=== PATIENT | male | born 1940 | race Two or more races ===

== ENCOUNTER 2018-08-25 13:57 | Emergency (ER) | payer OTHER ==
[~2018-08-25] VITALS: Ht 170.2 cm; Wt 64.4 kg
[2018-08-25 14:20] VITALS: BP 130/87
[2018-08-25 15:04] LABS: Basophils # (auto) 0 uL; Basophils % (auto) 0.5 % (0.0-2.0); Eosinophils # (auto) 0.1 uL; Eosinophils % (auto) 2.4 % (0.0-7.0); Hematocrit 38.9 % (41.0-53.0); Hemoglobin 12.9 g/dL (13.5-17.5); Lymphocytes # (auto) 0.9 uL; Lymphocytes % (auto) 14.1 % (10.0-50.0); Mean Corpuscular Hemoglobin 29.8 pg (28.0-32.0); Mean Corpuscular Hgb Conc. 33.1 g/dL (32.0-36.0); Mean Corpuscular Volume 89.9 fL (80.0-100.0); Monocytes # (auto) 0.6 uL; Monocytes % (auto) 10.1 % (0.0-12.0); Neutrophils # (auto) 4.6 uL; Neutrophils % (auto) 72.9 % (37.0-80.0); Platelet Count (auto) 295 10^3/uL (140-450); Red Blood Cells 4.33 10^6/uL (4.5-5.90); Red Cell Distribution Width 15.1 % (11.8-14.3); White Blood Cell 6.3 10^3/uL (4.4-10.8)
[2018-08-25 15:26] LABS: Albumin 3.6 g/dL (3.4-5.0); Anion Gap 3 (5-15); Blood Urea Nitrogen 17 mg/dL (7-18); Calcium 8.7 mg/dL (8.5-10.1); Carbon Dioxide 28 mmol/L (21-32); Chloride 105 mmol/L (98-107); Glucose 164 mg/dL (74-106); Magnesium 2.3 mg/dL (1.6-2.6); Potassium 3.6 mmol/L (3.5-5.1); Sodium 136 mmol/L (136-145)
[2018-08-25 15:32] LABS: Alanine Aminotransferase 69 U/L (16-61); Alkaline Phosphatase 202 U/L (45-117); Aspartate Aminotransferase 49 U/L (15-37); BUN/Creatinine Ratio 14.5; Bilirubin, Total 0.7 mg/dL (0.2-1.0); GFR African American 78 mL/min; GFR Non-African American 64 mL/min; Total Protein 7.3 g/dL (6.4-8.2)
== END 2018-08-25 19:50 | disposition left against medical advice (07) ==
LOC: ER 14:04
DX: I11.0 Hypertensive heart disease with heart failure (principal); I50.9 Heart failure, unspecified; R42 Dizziness and giddiness; R79.89 Other specified abnormal findings of blood chemistry; J44.9 Chronic obstructive pulmonary disease, unspecified; I25.10 Atherosclerotic heart disease of native coronary artery without angina pectoris; E78.5 Hyperlipidemia, unspecified; Z87.891 Personal history of nicotine dependence
CPT/HCPCS: 36415; 70450; 71046; 80053; 83735; 83880; 84484; 85025; 93005

== ENCOUNTER 2019-09-10 09:55 | Emergency (ER) | payer OTHER ==
[~2019-09-10] VITALS: Ht 160 cm; Wt 54.4 kg
[2019-09-10 10:08] VITALS: BP 120/60
[2019-09-10 10:44] LABS: Basophils # (auto) 0 uL; Basophils % (auto) 0.5 % (0.0-2.0); Eosinophils # (auto) 0.5 uL; Eosinophils % (auto) 8.2 % (0.0-7.0); Hematocrit 40.9 % (41.0-53.0); Hemoglobin 14.1 g/dL (13.5-17.5); Lymphocytes # (auto) 0.9 uL; Lymphocytes % (auto) 13.6 % (10.0-50.0); Mean Corpuscular Hemoglobin 32.4 pg (28.0-32.0); Mean Corpuscular Hgb Conc. 34.5 g/dL (32.0-36.0); Mean Corpuscular Volume 94.1 fL (80.0-100.0); Monocytes # (auto) 0.5 uL; Monocytes % (auto) 8.3 % (0.0-12.0); Neutrophils # (auto) 4.4 uL; Neutrophils % (auto) 69.4 % (37.0-80.0); Platelet Count (auto) 252 10^3/uL (140-450); Red Blood Cells 4.34 10^6/uL (4.5-5.90); Red Cell Distribution Width 14.5 % (11.8-14.3); White Blood Cell 6.3 10^3/uL (4.4-10.8)
[2019-09-10 10:59] LABS: Albumin 3.8 g/dL (3.4-5.0); Anion Gap 7 (5-15); Blood Urea Nitrogen 32 mg/dL (7-18); Calcium 9.1 mg/dL (8.5-10.1); Carbon Dioxide 25 mmol/L (21-32); Chloride 107 mmol/L (98-107); Glucose 87 mg/dL (74-106); Potassium 4.1 mmol/L (3.5-5.1); Sodium 139 mmol/L (136-145)
[2019-09-10 11:04] LABS: Alanine Aminotransferase 22 U/L (16-61); Alkaline Phosphatase 112 U/L (45-117); Aspartate Aminotransferase 28 U/L (15-37); BUN/Creatinine Ratio 26.7; Bilirubin, Total 0.7 mg/dL (0.2-1.0); GFR African American 75 mL/min; GFR Non-African American 62 mL/min; Total Protein 7.4 g/dL (6.4-8.2)
== END 2019-09-10 14:28 | disposition left against medical advice (07) ==
LOC: EDBD 09:55 → ER 09:55
DX: K29.70 Gastritis, unspecified, without bleeding (principal); F12.90 Cannabis use, unspecified, uncomplicated; I25.10 Atherosclerotic heart disease of native coronary artery without angina pectoris; J44.9 Chronic obstructive pulmonary disease, unspecified; E78.5 Hyperlipidemia, unspecified; I10 Essential (primary) hypertension; F17.210 Nicotine dependence, cigarettes, uncomplicated
CPT/HCPCS: 36415; 71046; 80053; 84484; 85025

== ENCOUNTER 2020-05-16 10:43 | Inpatient (IN) | payer OTHER ==
[~2020-05-16] VITALS: Ht 165.1 cm; Wt 59.0 kg
[2020-05-16] MEDS ORDERED: ONDANSETRON HCL 4 MG/2 ML VIAL IV ONE (11:00)
[2020-05-16] MEDS ORDERED: MORPHINE SULFATE 4 MG/ML SYR/VIAL IV ONE (11:00)
[2020-05-16 11:21] LABS: Basophils # (auto) 0.1 10 ^3/uL (0-0.2); Basophils % (auto) 1.3 % (0.0-2.0); Eosinophils # (auto) 0.3 10 ^3/uL (0-0.8); Eosinophils % (auto) 6.3 % (0.0-7.0); Hematocrit 45.6 % (41.0-53.0); Hemoglobin 15.3 g/dL (13.5-17.5); Lymphocytes # (auto) 1.1 10 ^3/uL (0.4-5.4); Lymphocytes % (auto) 26.6 % (10.0-50.0); Mean Corpuscular Hemoglobin 31.9 pg (28.0-32.0); Mean Corpuscular Hgb Conc. 33.6 g/dL (32.0-36.0); Monocytes # (auto) 0.4 10 ^3/uL (0-1.3); Monocytes % (auto) 9.2 % (0.0-12.0); Neutrophils # (auto) 2.3 10 ^3/uL (1.6-8.6); Neutrophils % (auto) 56.6 % (37.0-80.0); Nucleated Red Blood Cells % 0.1 %; Platelet Count (auto) 253 10^3/uL (140-450); White Blood Cell 4.1 10^3/uL (4.4-10.8)
[2020-05-16 11:37] LABS: Albumin 3.5 g/dL (3.4-5.0); Anion Gap 2 (5-15); Blood Urea Nitrogen 13 mg/dL (7-18); Calcium 8.8 mg/dL (8.5-10.1); Carbon Dioxide 28 mmol/L (21-32); Chloride 110 mmol/L (98-107); Glucose 153 mg/dL (74-106); Magnesium 2.4 mg/dL (1.6-2.6); Potassium 3.8 mmol/L (3.5-5.1); Sodium 140 mmol/L (136-145)
[2020-05-16 11:53] LABS: Alanine Aminotransferase 18 U/L (16-61); Alkaline Phosphatase 85 U/L (45-117); Aspartate Aminotransferase 21 U/L (15-37); BUN/Creatinine Ratio 11.8; Bilirubin, Total 0.8 mg/dL (0.2-1.0); GFR African American 83 mL/min; GFR Non-African American 69 mL/min; Total Protein 7.2 g/dL (6.4-8.2)
[2020-05-16] MEDS ORDERED: NITROGLYCERIN 0.4 MG SL TAB SL PRN ×2 (15:00→16:30)
[2020-05-16] MEDS ORDERED: CYCL10TA6 PO (16:12)
[2020-05-16] MEDS ORDERED: HYDR-4833 PO (16:12)
[2020-05-16] MEDS ORDERED: LORA2TAB12 PO (16:12)
[2020-05-16] MEDS ORDERED: MULT0.07 PO (16:12)
[2020-05-16] MEDS ORDERED: CARV12.544 PO (16:12)
[2020-05-16] MEDS ORDERED: ALBUAER3 IN (16:12)
[2020-05-16] MEDS ORDERED: PANC3600 PO (16:12)
[2020-05-16] MEDS ORDERED: SIMV10TA84 PO (16:12)
[2020-05-16] MEDS ORDERED: TAMS0.4C36 PO (16:12)
[2020-05-16] MEDS ORDERED: ISOS5TAB PO (16:12)
[2020-05-16] MEDS ORDERED: DICY20TA PO (16:12)
[2020-05-16] MEDS ORDERED: NITR0.4S29 SL (16:12)
[2020-05-16] MEDS ORDERED: ASPI-498 PO (16:12)
[2020-05-16] MEDS ORDERED: MELO1TAB73 PO (16:12)
[2020-05-16] MEDS ORDERED: MULT-928 PO (16:13)
[2020-05-16] MEDS ORDERED: MORPHINE SULFATE 4 MG/ML SYR/VIAL IV PRN (16:30)
[2020-05-16] MEDS ORDERED: ONDANSETRON HCL 4 MG/2 ML VIAL IV PRN (16:30)
[2020-05-16] MEDS ORDERED: ATORVASTATIN 20 MG TAB PO ONE (16:30)
[2020-05-16] MEDS ORDERED: ALUM & MAG HYDROX-SIMETH LIQ(MAALOX) 30 ML PO ONE (16:30)
[2020-05-16] MEDS ORDERED: MULTIPLE VITAMINS W/ MINERALS TAB PO ONE (16:45)
[2020-05-16] MEDS ORDERED: DICYCLOMINE HCL 10 MG CAP PO PRN (16:45)
[2020-05-16] MEDS: SODIUM CHLORIDE 0.9% 1,000 ML IV SCH (17:00)
[2020-05-16] MEDS: ENOXAPARIN SOD 40 MG/0.4 ML SYRINGE SC SCH (17:41)
[2020-05-16] MEDS: PANCREATIC ENZYMES 4200 UNIT CAP PO SCH (18:42)
[2020-05-16] MEDS: TAMSULOSIN HYDROCHLORIDE 0.4 MG CAP PO SCH (18:42)
[2020-05-16] MEDS: ALBUTEROL SULF 2.5 MG/0.5ML(0.5%) NEB SOLN NEB PRN (19:34)
[2020-05-16] MEDS: IPRATROPIUM BROM 0.5 MG/2.5ML INH SOL NEB SCH ×2 (19:35→22:00)
[2020-05-16] MEDS: ATORVASTATIN 20 MG TAB PO SCH (20:26)
[2020-05-16] MEDS: ISOSORBIDE DINITRATE 10 MG TAB PO SCH (20:26)
[2020-05-16] MEDS: METOPROLOL TARTRATE 25 MG TAB PO SCH (20:27)
[2020-05-16] MEDS: LORazepam 0.5 MG TAB PO PRN (20:27)
--- NOTE | 2020-05-16 22:23 | NUR ---
MED NEB TX HELD, PT REQUESTED IF SLEEPING TO HOLD MED NEB TX. PT ON ROOM AIR SPO2 93% WITH NO DISTRESS.
[2020-05-16] MEDS: MORPHINE SULF INJ 2 MG/ML SYRINGE 1ML IV PRN (23:16)
[2020-05-17] VITALS (7 sets, daily range): BP systolic 93–141; BP diastolic 57–88
[2020-05-17] MEDS: IPRATROPIUM BROM 0.5 MG/2.5ML INH SOL NEB SCH ×6 (01:27→22:42)
[2020-05-17] MEDS: ACETAMINOPHEN 325 MG TAB PO PRN ×3 (05:22→23:20)
[2020-05-17] MEDS: SODIUM CHLORIDE 0.9% 1,000 ML IV SCH ×2 (05:24→19:10)
[2020-05-17] MEDS: ALBUTEROL SULF 2.5 MG/0.5ML(0.5%) NEB SOLN NEB PRN ×3 (06:57→19:01)
--- NOTE | 2020-05-17 07:20 | NUR ---
Opening Shift Note Assumed care of patient, awake and alert. No S/S of distress/SOB or pain. Instructed on POC and to call for assist PRN, will continue to monitor for changes Q1hr and PRN.
--- NOTE | 2020-05-17 10:00 | NUR ---
Respiratory note: PT REFUSED 1000 MEDNEB TX. PT SAID IF HE IS ASLEEP TO NOT WAKE HIM UP. PT IS RESTING AND IN NO DISTRESS AT THIS TIME.
[2020-05-17] MEDS: PANCREATIC ENZYMES 4200 UNIT CAP PO SCH ×3 (10:20→22:29)
[2020-05-17] MEDS: ENOXAPARIN SOD 40 MG/0.4 ML SYRINGE SC SCH (10:20)
[2020-05-17] MEDS: ASPirin 81 mg TAB PO SCH (10:21)
[2020-05-17] MEDS: DOCUSATE SOD 100 MG CAP PO SCH (10:21)
[2020-05-17] MEDS: ISOSORBIDE DINITRATE 10 MG TAB PO SCH ×2 (10:22→22:23)
[2020-05-17] MEDS: METOPROLOL TARTRATE 25 MG TAB PO SCH ×2 (10:23→22:00)
[2020-05-17] MEDS: MULTIPLE VITAMINS W/ MINERALS TAB PO SCH (10:24)
[2020-05-17] MEDS: TAMSULOSIN HYDROCHLORIDE 0.4 MG CAP PO SCH (18:39)
[2020-05-17] MEDS: MORPHINE SULF INJ 2 MG/ML SYRINGE 1ML IV PRN (21:00)
[2020-05-17] MEDS: ATORVASTATIN 20 MG TAB PO SCH (22:23)
[2020-05-17] MEDS: LORazepam 0.5 MG TAB PO PRN (22:31)
--- NOTE | 2020-05-17 22:42 | NUR ---
PT REQUESTED NOT TO BE WOKEN UP FOR HIS 2200 MED NEB TX. HE IS AWARE TO CALL IF HE CHANGES HIS MIND OR FEELS SOB.
--- NOTE | 2020-05-18 00:40 | NUR ---
PATIENT COMPLAINING OF INTRACTABLE HEADACHE FOR THE LAST 3 HOURS. ATIVAN AND TYLENOL GIVEN WITHOUT RELIEF. PAGED HOSPITALIST AND AWAITING CALLBACK.
[2020-05-18] MEDS ORDERED: SUMAtriptan SUCCINATE 25 MG TAB PO ONE (01:30)
[2020-05-18] MEDS: IPRATROPIUM BROM 0.5 MG/2.5ML INH SOL NEB SCH ×7 (02:30→22:00)
--- NOTE | 2020-05-18 02:31 | NUR ---
PT REQUESTED NOT TO BE WOKEN UP FOR HIS 0200 MED NEB TX. HE IS AWARE TO CALL IF HE CHANGES HIS MIND OR FEELS SOB.
--- NOTE | 2020-05-18 04:20 | NUR ---
20G to the Left AC dc'd due to leaking. Catheter tip still intact upon removal.
--- NOTE | 2020-05-18 04:23 | NUR ---
IV insertion IV access obtained, via clean sterile technique by inserting 20 gauge catheter at right wrist after 1 attempt. IV secured properly. No trauma to site. Patient tolerated procedure well.
[2020-05-18 05:06] VITALS: BP 144/94
--- NOTE | 2020-05-18 06:40 | NUR ---
PT REFUSED MED NEB AT THIS TIME. PT SAID HE WANTS TO SLEEP. PT ON RA WITH SPO2 96% WITH CLEAR BS, RR 16 NO DISTRESS NOTED. WILL CONTINUE TO MONITOR PT.
[2020-05-18] MEDS: PANCREATIC ENZYMES 4200 UNIT CAP PO SCH ×3 (07:43→17:17)
[2020-05-18] MEDS: LORazepam 0.5 MG TAB PO PRN ×3 (07:43→22:13)
[2020-05-18 09:00] VITALS: BP 114/80
[2020-05-18] MEDS: METOPROLOL TARTRATE 25 MG TAB PO SCH ×2 (09:41→22:00)
[2020-05-18] MEDS: MULTIPLE VITAMINS W/ MINERALS TAB PO SCH (09:41)
[2020-05-18] MEDS: ASPirin 81 mg TAB PO SCH (09:41)
[2020-05-18] MEDS: ISOSORBIDE DINITRATE 10 MG TAB PO SCH ×2 (09:42→22:12)
[2020-05-18] MEDS: ENOXAPARIN SOD 40 MG/0.4 ML SYRINGE SC SCH (09:42)
[2020-05-18] MEDS: SODIUM CHLORIDE 0.9% 1,000 ML IV SCH ×2 (09:42→21:37)
[2020-05-18] MEDS: DOCUSATE SOD 100 MG CAP PO SCH (09:42)
--- NOTE | 2020-05-18 10:14 | NUR ---
Dr. Marina at bedside, patient c/o of headache, received new orders, noted and carried it out.
[2020-05-18] MEDS ORDERED: SUMAtriptan SUCCINATE 25 MG TAB PO PRN (10:15)
[2020-05-18] MEDS: SUMAtriptan SUCCINATE 25 MG TAB PO PRN (11:11)
[2020-05-18 12:51] VITALS: BP 141/67
[2020-05-18 16:50] VITALS: BP 136/70
[2020-05-18] MEDS: TAMSULOSIN HYDROCHLORIDE 0.4 MG CAP PO SCH (17:17)
[2020-05-18 22:00] VITALS: BP 149/82
[2020-05-18] MEDS: ATORVASTATIN 20 MG TAB PO SCH (22:13)
[2020-05-19] MEDS: SUMAtriptan SUCCINATE 25 MG TAB PO PRN ×2 (01:11→13:15)
[2020-05-19] MEDS: IPRATROPIUM BROM 0.5 MG/2.5ML INH SOL NEB SCH ×3 (02:00→10:13)
--- NOTE | 2020-05-19 05:41 | NUR ---
PT REFUSED 5AM VITALS
--- NOTE | 2020-05-19 06:06 | NUR ---
Respiratory note: SCHEDULED MEDNEB TX NOT GIVEN, PT REFUSING AT THIS TIME AND WANTS TO SLEEP. SPO2 95% ON ROOM AIR. NO S/S OF DISTRESS. WILL RETURN FOR NEXT SCHEDULED TX.
[2020-05-19 08:42] VITALS: BP 132/76
[2020-05-19] MEDS: DOCUSATE SOD 100 MG CAP PO SCH (08:56)
[2020-05-19] MEDS: PANCREATIC ENZYMES 4200 UNIT CAP PO SCH ×2 (08:56→11:14)
[2020-05-19] MEDS: ASPirin 81 mg TAB PO SCH (08:56)
[2020-05-19] MEDS: MULTIPLE VITAMINS W/ MINERALS TAB PO SCH (08:56)
[2020-05-19] MEDS: ENOXAPARIN SOD 40 MG/0.4 ML SYRINGE SC SCH (08:57)
[2020-05-19] MEDS: ISOSORBIDE DINITRATE 10 MG TAB PO SCH (08:57)
[2020-05-19] MEDS: LORazepam 0.5 MG TAB PO PRN (08:57)
[2020-05-19] MEDS: METOPROLOL TARTRATE 25 MG TAB PO SCH (08:57)
[2020-05-19] MEDS: SODIUM CHLORIDE 0.9% 1,000 ML IV SCH (11:14)
[2020-05-19 11:55] VITALS: BP 123/87
[2020-05-19 13:02] VITALS: BP 142/83
--- NOTE | 2020-05-19 13:50 | NUR ---
Discharge instructions given as ordered. Encourage to follow up with PMD (Follow up with PCP Terrie Khan #[phone] Address : [address] [place] [address], Follow up with [employer] in 1-[address] Ortiz #[phone] Address : [address] Need referral from PCP to see human performance professor)as instructed. All questions and concerns addressed. Patient verbalized understanding. Medication reconciliation form completed and copy given to patient. IV removed with catheter intact, pressure dressing applied. Telemetry unit returned to ICU. Patient taken to vehicle via wheelchair with all personal belongings, accompanied by staff and family member. No distress noted at time of departure.
== END 2020-05-19 14:15 | disposition home or self-care (01) | DRG 308 ==
LOC: ER 10:43 → TELE 10:44 → TELE-WESTW 05-17 02:27
PROVIDERS: ADMIT Hospitalist; ATTEND Family Medicine
DX: I49.5 Sick sinus syndrome (principal); I50.23 Acute on chronic systolic (congestive) heart failure; K86.1 Other chronic pancreatitis; I11.0 Hypertensive heart disease with heart failure; E78.5 Hyperlipidemia, unspecified; K21.9 Gastro-esophageal reflux disease without esophagitis; J44.9 Chronic obstructive pulmonary disease, unspecified; N40.0 Benign prostatic hyperplasia without lower urinary tract symptoms; I25.10 Atherosclerotic heart disease of native coronary artery without angina pectoris; E78.00 Pure hypercholesterolemia, unspecified; I25.5 Ischemic cardiomyopathy; M19.90 Unspecified osteoarthritis, unspecified site; I25.2 Old myocardial infarction; Z95.1 Presence of aortocoronary bypass graft; Z87.891 Personal history of nicotine dependence; Z95.0 Presence of cardiac pacemaker; Z71.6 Tobacco abuse counseling
CPT/HCPCS: 36415; 71046; 80053; 83735; 83880; 84484; 85025; 93005; 93306; 94640; G0378

== ENCOUNTER 2020-08-25 02:33 | Emergency (ER) | payer OTHER ==
[~2020-08-25] VITALS: Ht 167.6 cm; Wt 55.3 kg
[~2020-08-25 02:33] MED LIST: ALBUAER3 IN; ASPI-498 PO; CARV12.544 PO; CYCL10TA6 PO; DICY20TA PO; HYDR-4833 PO; ISOS5TAB PO; LORA2TAB12 PO; MELO1TAB73 PO; MULT-928 PO; MULT0.07 PO; NITR0.4S29 SL; PANC3600 PO; SIMV10TA84 PO; TAMS0.4C36 PO
[2020-08-25 03:57] VITALS: BP 114/71
== END 2020-08-25 04:50 | disposition home or self-care (01) ==
LOC: ER 02:36
DX: M25.551 Pain in right hip (principal); J44.9 Chronic obstructive pulmonary disease, unspecified; E78.5 Hyperlipidemia, unspecified; I10 Essential (primary) hypertension; I25.2 Old myocardial infarction; Z87.891 Personal history of nicotine dependence; X50.1XXA Overexertion from prolonged static or awkward postures, initial encounter; Y93.89 Activity, other specified; Y92.89 Other specified places as the place of occurrence of the external cause; Y99.8 Other external cause status
CPT/HCPCS: 72100; 72170

== ENCOUNTER 2020-10-02 16:25 | Emergency (ER) | payer OTHER ==
[~2020-10-02] VITALS: Ht 165.1 cm; Wt 54.4 kg
[2020-10-02 16:55] VITALS: BP 121/82
== END 2020-10-02 17:27 | disposition home or self-care (01) ==
LOC: ER 16:25
DX: Z76.0 Encounter for issue of repeat prescription (principal); I10 Essential (primary) hypertension; E78.5 Hyperlipidemia, unspecified; Z79.899 Other long term (current) drug therapy; Z79.82 Long term (current) use of aspirin; Z87.891 Personal history of nicotine dependence

== ENCOUNTER → 2020-10-26 | Outpatient (CLI) | payer OTHER ==
[2020-10-26 09:39] LABS: Basophils # (auto) 0.1 10 ^3/uL (0-0.2); Basophils % (auto) 1.4 % (0.0-2.0); Eosinophils # (auto) 0.4 10 ^3/uL (0-0.8); Eosinophils % (auto) 8.1 % (0.0-7.0); Hematocrit 38.5 % (41.0-53.0); Hemoglobin 12.6 g/dL (13.5-17.5); Lymphocytes # (auto) 1.5 10 ^3/uL (0.4-5.4); Lymphocytes % (auto) 33.3 % (10.0-50.0); Mean Corpuscular Hemoglobin 28.7 pg (28.0-32.0); Mean Corpuscular Hgb Conc. 32.7 g/dL (32.0-36.0); Mean Corpuscular Volume 87.8 fL (80.0-100.0); Monocytes # (auto) 0.4 10 ^3/uL (0-1.3); Monocytes % (auto) 9.5 % (0.0-12.0); Neutrophils # (auto) 2.1 10 ^3/uL (1.6-8.6); Neutrophils % (auto) 47.7 % (37.0-80.0); Platelet Count (auto) 300 10^3/uL (140-450); Red Blood Cells 4.38 10^6/uL (4.5-5.90); Red Cell Distribution Width 13.7 % (11.8-14.3); White Blood Cell 4.4 10^3/uL (4.4-10.8)
[2020-10-26 09:43] LABS: Urine Blood Negative /uL (Negative); Urine Specific Gravity 1.015 (1.001-1.035)
[2020-10-26 10:24] LABS: Free T4 (Free Thyroxine) 0.94 ng/dL (0.89-1.76)
[2020-10-26 10:27] LABS: Albumin 3.5 g/dL (3.4-5.0); BUN/Creatinine Ratio 9.8; Calcium 8.9 mg/dL (8.5-10.1); Potassium 4.1 mmol/L (3.5-5.1)
[2020-10-26 10:31] LABS: Bilirubin, Total 0.5 mg/dL (0.2-1.0)
[2020-10-26 10:36] LABS: Prostate Specific Antigen 4.74 ng/mL (0.0-4.0)
== END | disposition home or self-care (01) ==
LOC: LAB 09:23
PROVIDERS: ATTEND Internal Medicine Cardiovascular Disease
DX: C61 Malignant neoplasm of prostate (principal); D51.3 Other dietary vitamin B12 deficiency anemia; I10 Essential (primary) hypertension; E11.9 Type 2 diabetes mellitus without complications; E55.9 Vitamin D deficiency, unspecified; D64.9 Anemia, unspecified; R00.2 Palpitations; R53.1 Weakness; R30.0 Dysuria
CPT/HCPCS: 36415; 80053; 80061; 81003; 82607; 83036; 84153; 84154; 84403; 84439; 84443; 85025

== ENCOUNTER → 2020-12-13 | Outpatient (CLI) | payer OTHER ==
[2020-12-13 12:05] LABS: Basophils # (auto) 0.1 10 ^3/uL (0-0.2); Basophils % (auto) 1.2 % (0.0-2.0); Eosinophils # (auto) 0.3 10 ^3/uL (0-0.8); Eosinophils % (auto) 6.4 % (0.0-7.0); Hematocrit 38.7 % (41.0-53.0); Hemoglobin 12.5 g/dL (13.5-17.5); Lymphocytes # (auto) 1.4 10 ^3/uL (0.4-5.4); Lymphocytes % (auto) 28.9 % (10.0-50.0); Mean Corpuscular Hgb Conc. 32.2 g/dL (32.0-36.0); Mean Corpuscular Volume 83.9 fL (80.0-100.0); Monocytes # (auto) 0.6 10 ^3/uL (0-1.3); Neutrophils # (auto) 2.6 10 ^3/uL (1.6-8.6); Neutrophils % (auto) 51.5 % (37.0-80.0); Nucleated Red Blood Cells % 0.1 %; Platelet Count (auto) 322 10^3/uL (140-450); Red Blood Cells 4.61 10^6/uL (4.5-5.90); Red Cell Distribution Width 14.6 % (11.8-14.3)
[2020-12-13 13:08] LABS: Albumin 3.7 g/dL (3.4-5.0); Calcium 8.9 mg/dL (8.5-10.1); Potassium 3.9 mmol/L (3.5-5.1)
[2020-12-13 13:12] LABS: BUN/Creatinine Ratio 11.4; Bilirubin, Direct 0.2 mg/dL (0-0.2); Bilirubin, Total 0.6 mg/dL (0.2-1.0); Total Protein 7.3 g/dL (6.4-8.2)
[2020-12-13 13:15] LABS: Carcinoembryonic Antigen 2.97 ng/mL (<5.0 OR =)
[2020-12-13 13:16] LABS: Folate (Folic Acid) 21.39 ng/mL (5.38-24)
== END | disposition home or self-care (01) ==
LOC: LAB 10:57
PROVIDERS: ATTEND Internal Medicine Gastroenterology
DX: D64.9 Anemia, unspecified (principal); R93.3 Abnormal findings on diagnostic imaging of other parts of digestive tract
CPT/HCPCS: 36415; 80053; 80076; 82150; 82274; 82378; 82746; 83690; 85025; 85045; 85652; 86301

== ENCOUNTER 2021-01-18 12:45 | Emergency (ER) | payer OTHER ==
[~2021-01-18] VITALS: Ht 167.6 cm; Wt 56.7 kg
[~2021-01-18 12:45] MED LIST changes: +CYCL-839 PO; -CYCL10TA6 PO
[2021-01-18] MEDS ORDERED: ASPirin 81 mg TAB PO ONE (13:15)
[2021-01-18 13:20] LABS: Basophils # (auto) 0.1 10 ^3/uL (0-0.2); Eosinophils # (auto) 0.5 10 ^3/uL (0-0.8); Eosinophils % (auto) 10.3 % (0.0-7.0); Hematocrit 38.8 % (41.0-53.0); Hemoglobin 12.8 g/dL (13.5-17.5); Lymphocytes # (auto) 1.8 10 ^3/uL (0.4-5.4); Lymphocytes % (auto) 36.1 % (10.0-50.0); Mean Corpuscular Hemoglobin 27.7 pg (28.0-32.0); Mean Corpuscular Hgb Conc. 32.9 g/dL (32.0-36.0); Mean Corpuscular Volume 84.1 fL (80.0-100.0); Monocytes # (auto) 0.6 10 ^3/uL (0-1.3); Monocytes % (auto) 12.3 % (0.0-12.0); Neutrophils # (auto) 2.1 10 ^3/uL (1.6-8.6); Neutrophils % (auto) 40.3 % (37.0-80.0); Red Blood Cells 4.61 10^6/uL (4.5-5.90); Red Cell Distribution Width 17.4 % (11.8-14.3); White Blood Cell 5.1 10^3/uL (4.4-10.8)
[2021-01-18 13:32] LABS: Albumin 3.4 g/dL (3.4-5.0); Anion Gap 3 (5-15); Blood Urea Nitrogen 12 mg/dL (7-18); Calcium 8.4 mg/dL (8.5-10.1); Carbon Dioxide 29 mmol/L (21-32); Chloride 109 mmol/L (98-107); Glucose 100 mg/dL (74-106); Sodium 141 mmol/L (136-145)
[2021-01-18 13:39] LABS: Alanine Aminotransferase 20 U/L (16-61); Alkaline Phosphatase 73 U/L (45-117); Aspartate Aminotransferase 18 U/L (15-37); Bilirubin, Total 0.5 mg/dL (0.2-1.0); GFR African American 84 mL/min; GFR Non-African American 69 mL/min; Total Protein 6.8 g/dL (6.4-8.2)
[2021-01-18 14:00] VITALS: BP 116/70
== END 2021-01-18 14:53 | disposition home or self-care (01) ==
LOC: ER 12:45
DX: R07.89 Other chest pain (principal); J44.9 Chronic obstructive pulmonary disease, unspecified; E78.00 Pure hypercholesterolemia, unspecified; I10 Essential (primary) hypertension; I25.2 Old myocardial infarction; Z79.899 Other long term (current) drug therapy; Z95.1 Presence of aortocoronary bypass graft
CPT/HCPCS: 36415; 71045; 80053; 83880; 84484; 85025; 85049; 93005

== ENCOUNTER → 2021-01-23 | Outpatient (CLI) | payer OTHER ==
[~2021-01-23] VITALS: Ht 167.6 cm; Wt 54.4 kg
[~2021-01-23] MED LIST changes: +ADENOSINE 46 MG in GIVE UN-DILUTED 0 ML IV ONE; +ADENOSINE 90 MG/30 ML INJ IV ONE; -CYCL-839 PO; +CYCL10TA6 PO
== END | disposition home or self-care (01) ==
LOC: Rad HDHVI 08:07
PROVIDERS: ATTEND Internal Medicine Cardiovascular Disease
DX: I25.10 Atherosclerotic heart disease of native coronary artery without angina pectoris (principal); I10 Essential (primary) hypertension; R00.2 Palpitations; K86.89 Other specified diseases of pancreas; E78.5 Hyperlipidemia, unspecified; I49.5 Sick sinus syndrome; R06.02 Shortness of breath; N40.1 Benign prostatic hyperplasia with lower urinary tract symptoms; Z95.0 Presence of cardiac pacemaker
CPT/HCPCS: 78452; 93005; 96374; 96375; A9500; J0153

== ENCOUNTER 2021-03-08 11:45 | Emergency (ER) | payer OTHER ==
[~2021-03-08] VITALS: Ht 165.1 cm; Wt 58.1 kg
[~2021-03-08 11:45] MED LIST changes: -ADENOSINE 46 MG in GIVE UN-DILUTED 0 ML IV ONE; -ADENOSINE 90 MG/30 ML INJ IV ONE
[2021-03-08 13:45] LABS: Basophils # (auto) 0.1 10 ^3/uL (0-0.2); Basophils % (auto) 0.8 % (0.0-2.0); Eosinophils # (auto) 0 10 ^3/uL (0-0.8); Eosinophils % (auto) 0.3 % (0.0-7.0); Hematocrit 38.5 % (41.0-53.0); Hemoglobin 12.9 g/dL (13.5-17.5); Lymphocytes # (auto) 1.4 10 ^3/uL (0.4-5.4); Lymphocytes % (auto) 13.9 % (10.0-50.0); Mean Corpuscular Hemoglobin 29.6 pg (28.0-32.0); Mean Corpuscular Hgb Conc. 33.6 g/dL (32.0-36.0); Mean Corpuscular Volume 88.4 fL (80.0-100.0); Monocytes # (auto) 1.2 10 ^3/uL (0-1.3); Monocytes % (auto) 11.4 % (0.0-12.0); Neutrophils # (auto) 7.6 10 ^3/uL (1.6-8.6); Neutrophils % (auto) 73.6 % (37.0-80.0); Red Blood Cells 4.36 10^6/uL (4.5-5.90); Red Cell Distribution Width 17.4 % (11.8-14.3); White Blood Cell 10.4 10^3/uL (4.4-10.8)
[2021-03-08 14:11] LABS: Albumin 3.6 g/dL (3.4-5.0); Anion Gap 9 (5-15); Blood Urea Nitrogen 44 mg/dL (7-18); Calcium 9.6 mg/dL (8.5-10.1); Carbon Dioxide 23 mmol/L (21-32); Chloride 112 mmol/L (98-107); Glucose 98 mg/dL (74-106); Potassium 4.7 mmol/L (3.5-5.1); Sodium 144 mmol/L (136-145)
[2021-03-08 14:17] LABS: Alanine Aminotransferase 37 U/L (16-61); Alkaline Phosphatase 105 U/L (45-117); Aspartate Aminotransferase 98 U/L (15-37); Bilirubin, Total 1.1 mg/dL (0.2-1.0); GFR African American 35 mL/min; GFR Non-African American 29 mL/min; Total Protein 7.9 g/dL (6.4-8.2)
[2021-03-08 15:35] VITALS: BP 108/58
== END 2021-03-08 15:38 | disposition home or self-care (01) ==
LOC: ER 11:45
DX: S22.089A Unspecified fracture of T11-T12 vertebra, initial encounter for closed fracture (principal); R07.89 Other chest pain; R51.9 Headache, unspecified; I10 Essential (primary) hypertension; I25.2 Old myocardial infarction; E78.5 Hyperlipidemia, unspecified; J44.9 Chronic obstructive pulmonary disease, unspecified; Z86.73 Personal history of transient ischemic attack (TIA), and cerebral infarction without residual deficits; Z95.1 Presence of aortocoronary bypass graft; Z79.899 Other long term (current) drug therapy; Z88.0 Allergy status to penicillin; W19.XXXA Unspecified fall, initial encounter; Y93.89 Activity, other specified; Y92.89 Other specified places as the place of occurrence of the external cause; Y99.8 Other external cause status
CPT/HCPCS: 36415; 70450; 72070; 72128; 73070; 80053; 84484; 85025; 93005

== ENCOUNTER 2021-03-26 10:07 | Emergency (ER) | payer OTHER ==
[~2021-03-26] VITALS: Ht 170.2 cm; Wt 54.4 kg
[~2021-03-26 10:07] MED LIST changes: +CYCL-839 PO; -CYCL10TA6 PO
[2021-03-26 13:28] VITALS: BP 89/58
== END 2021-03-26 13:41 | disposition home or self-care (01) ==
LOC: ER 10:11
DX: S22.088A Other fracture of T11-T12 vertebra, initial encounter for closed fracture (principal); S22.058D Other fracture of T5-T6 vertebra, subsequent encounter for fracture with routine healing; M54.5 Low back pain; G89.29 Other chronic pain; I25.10 Atherosclerotic heart disease of native coronary artery without angina pectoris; J44.9 Chronic obstructive pulmonary disease, unspecified; E78.5 Hyperlipidemia, unspecified; I10 Essential (primary) hypertension; I25.2 Old myocardial infarction; Z88.0 Allergy status to penicillin; Z79.899 Other long term (current) drug therapy; Z95.1 Presence of aortocoronary bypass graft; Z98.890 Other specified postprocedural states; W18.09XA Striking against other object with subsequent fall, initial encounter; Y93.89 Activity, other specified; Y92.89 Other specified places as the place of occurrence of the external cause; Y99.8 Other external cause status
CPT/HCPCS: 72100

== ENCOUNTER 2021-04-04 17:44 | Emergency (ER) | payer OTHER ==
[~2021-04-04] VITALS: Ht 170.2 cm; Wt 54.4 kg
[~2021-04-04 17:44] MED LIST changes: -CYCL-839 PO; +CYCL10TA6 PO
[2021-04-04 18:19] LABS: Basophils # (auto) 0.1 10 ^3/uL (0-0.2); Eosinophils # (auto) 0.5 10 ^3/uL (0-0.8); Eosinophils % (auto) 8.9 % (0.0-7.0); Hematocrit 38.8 % (41.0-53.0); Hemoglobin 12.6 g/dL (13.5-17.5); Lymphocytes # (auto) 1.7 10 ^3/uL (0.4-5.4); Lymphocytes % (auto) 32.3 % (10.0-50.0); Mean Corpuscular Hemoglobin 28.9 pg (28.0-32.0); Mean Corpuscular Hgb Conc. 32.5 g/dL (32.0-36.0); Mean Corpuscular Volume 88.9 fL (80.0-100.0); Monocytes # (auto) 0.6 10 ^3/uL (0-1.3); Monocytes % (auto) 11.2 % (0.0-12.0); Neutrophils # (auto) 2.4 10 ^3/uL (1.6-8.6); Neutrophils % (auto) 46.6 % (37.0-80.0); Nucleated Red Blood Cells % 0.1 %; Red Blood Cells 4.37 10^6/uL (4.5-5.90); Red Cell Distribution Width 15.3 % (11.8-14.3); White Blood Cell 5.2 10^3/uL (4.4-10.8)
[2021-04-04 18:34] LABS: Alanine Aminotransferase 16 U/L (16-61); Anion Gap 8 (5-15); Aspartate Aminotransferase 17 U/L (15-37); BUN/Creatinine Ratio 12.3; Blood Urea Nitrogen 16 mg/dL (7-18); Calcium 8.9 mg/dL (8.5-10.1); Carbon Dioxide 25 mmol/L (21-32); Chloride 110 mmol/L (98-107); GFR African American 68 mL/min; GFR Non-African American 56 mL/min; Glucose 91 mg/dL (74-106); Sodium 143 mmol/L (136-145)
[2021-04-04 18:39] LABS: Alkaline Phosphatase 127 U/L (45-117); Bilirubin, Total 0.3 mg/dL (0.2-1.0)
[2021-04-04 19:27] LABS: INR 1.1 (0.9-1.15)
[2021-04-05 02:46] VITALS: BP 125/82
== END 2021-04-05 02:54 | disposition home or self-care (01) ==
LOC: ER 17:44
DX: R42 Dizziness and giddiness (principal); I10 Essential (primary) hypertension; I25.2 Old myocardial infarction; E78.5 Hyperlipidemia, unspecified; Z86.73 Personal history of transient ischemic attack (TIA), and cerebral infarction without residual deficits; Z95.1 Presence of aortocoronary bypass graft; Z79.899 Other long term (current) drug therapy; Z88.0 Allergy status to penicillin; Z20.822 Contact with and (suspected) exposure to COVID-19; Z95.0 Presence of cardiac pacemaker
CPT/HCPCS: 36415; 71045; 80053; 83605; 83735; 83880; 84484; 85025; 85379; 85610; 87426; 93005

== ENCOUNTER 2021-05-06 07:36 | Emergency (ER) | payer OTHER ==
[~2021-05-06] VITALS: Ht 170.2 cm; Wt 54.4 kg
[~2021-05-06 07:36] MED LIST changes: +CYCL-839 PO; -CYCL10TA6 PO
[2021-05-06 07:44] VITALS: BP 159/72
== END 2021-05-06 10:17 | disposition home or self-care (01) ==
LOC: ER 07:36
DX: S22.088A Other fracture of T11-T12 vertebra, initial encounter for closed fracture (principal); S33.5XXA Sprain of ligaments of lumbar spine, initial encounter; M47.816 Spondylosis without myelopathy or radiculopathy, lumbar region; G89.29 Other chronic pain; I25.10 Atherosclerotic heart disease of native coronary artery without angina pectoris; J44.9 Chronic obstructive pulmonary disease, unspecified; E78.5 Hyperlipidemia, unspecified; I10 Essential (primary) hypertension; I25.2 Old myocardial infarction; Z88.0 Allergy status to penicillin; Z79.82 Long term (current) use of aspirin; Z79.899 Other long term (current) drug therapy; Z95.1 Presence of aortocoronary bypass graft; Z95.0 Presence of cardiac pacemaker; Z98.890 Other specified postprocedural states; Z87.891 Personal history of nicotine dependence; W01.0XXA Fall on same level from slipping, tripping and stumbling without subsequent striking against object, initial encounter; Y93.89 Activity, other specified; Y92.89 Other specified places as the place of occurrence of the external cause; Y99.8 Other external cause status
CPT/HCPCS: 72131

== ENCOUNTER 2021-05-11 11:50 | Emergency (ER) | payer OTHER ==
[~2021-05-11] VITALS: Ht 170.2 cm; Wt 54.4 kg
[2021-05-11] MEDS ORDERED: SODIUM CHLORIDE 0.9% 500 ML IVB ONE (12:00)
[2021-05-11 12:20] VITALS: BP 104/54
[2021-05-11 13:10] LABS: Basophils # (auto) 0 10 ^3/uL (0-0.2); Basophils % (auto) 0.3 % (0.0-2.0); Eosinophils # (auto) 0 10 ^3/uL (0-0.8); Eosinophils % (auto) 0.4 % (0.0-7.0); Hematocrit 39.4 % (41.0-53.0); Hemoglobin 13.1 g/dL (13.5-17.5); Lymphocytes % (auto) 17.2 % (10.0-50.0); Mean Corpuscular Hemoglobin 29.7 pg (28.0-32.0); Mean Corpuscular Hgb Conc. 33.2 g/dL (32.0-36.0); Mean Corpuscular Volume 89.4 fL (80.0-100.0); Monocytes # (auto) 0.7 10 ^3/uL (0-1.3); Neutrophils # (auto) 4.2 10 ^3/uL (1.6-8.6); Neutrophils % (auto) 70.1 % (37.0-80.0); Red Blood Cells 4.41 10^6/uL (4.5-5.90); Red Cell Distribution Width 16.1 % (11.8-14.3)
[2021-05-11 13:34] LABS: Albumin 3.1 g/dL (3.4-5.0); Anion Gap 7 (5-15); Blood Urea Nitrogen 73 mg/dL (7-18); Calcium 8.8 mg/dL (8.5-10.1); Carbon Dioxide 20 mmol/L (21-32); Chloride 116 mmol/L (98-107); Glucose 111 mg/dL (74-106); Potassium 4.8 mmol/L (3.5-5.1); Sodium 143 mmol/L (136-145)
[2021-05-11 13:48] LABS: Alanine Aminotransferase 37 U/L (16-61); Alkaline Phosphatase 90 U/L (45-117); Aspartate Aminotransferase 57 U/L (15-37); BUN/Creatinine Ratio 33.6; Bilirubin, Total 0.6 mg/dL (0.2-1.0); Blood Alcohol < 3.0 mg/dL (0-5); GFR African American 38 mL/min; GFR Non-African American 31 mL/min; Total Protein 7.3 g/dL (6.4-8.2)
== END 2021-05-11 14:21 | disposition left against medical advice (07) ==
LOC: EDBD 11:50 → ER 11:50
DX: F03.90 Unspecified dementia, unspecified severity, without behavioral disturbance, psychotic disturbance, mood disturbance, and anxiety (principal); I25.2 Old myocardial infarction; I10 Essential (primary) hypertension; J44.9 Chronic obstructive pulmonary disease, unspecified; E78.5 Hyperlipidemia, unspecified; Z95.1 Presence of aortocoronary bypass graft; Z95.0 Presence of cardiac pacemaker; Z79.899 Other long term (current) drug therapy; Z88.1 Allergy status to other antibiotic agents; Z53.29 Procedure and treatment not carried out because of patient's decision for other reasons
CPT/HCPCS: 36415; 80053; 80320; 85025; 93005

== ENCOUNTER 2021-05-13 07:56 | Emergency (ER) | payer OTHER ==
[~2021-05-13] VITALS: Ht 170.2 cm; Wt 54.4 kg
[2021-05-13 09:07] LABS: Basophils # (auto) 0 10 ^3/uL (0-0.2); Basophils % (auto) 0.3 % (0.0-2.0); Eosinophils # (auto) 0.2 10 ^3/uL (0-0.8); Eosinophils % (auto) 2.6 % (0.0-7.0); Hematocrit 42.2 % (41.0-53.0); Hemoglobin 13.8 g/dL (13.5-17.5); Lymphocytes % (auto) 15.6 % (10.0-50.0); Mean Corpuscular Hemoglobin 29.4 pg (28.0-32.0); Mean Corpuscular Hgb Conc. 32.7 g/dL (32.0-36.0); Monocytes # (auto) 0.9 10 ^3/uL (0-1.3); Monocytes % (auto) 13.7 % (0.0-12.0); Neutrophils # (auto) 4.5 10 ^3/uL (1.6-8.6); Neutrophils % (auto) 67.8 % (37.0-80.0); Nucleated Red Blood Cells % 0.1 %; Red Blood Cells 4.69 10^6/uL (4.5-5.90); Red Cell Distribution Width 15.7 % (11.8-14.3); White Blood Cell 6.7 10^3/uL (4.4-10.8)
[2021-05-13 09:33] LABS: Alanine Aminotransferase 41 U/L (16-61); Albumin 2.9 g/dL (3.4-5.0); Anion Gap 7 (5-15); Aspartate Aminotransferase 52 U/L (15-37); BUN/Creatinine Ratio 24.8; Blood Urea Nitrogen 30 mg/dL (7-18); Calcium 8.8 mg/dL (8.5-10.1); Carbon Dioxide 24 mmol/L (21-32); Chloride 115 mmol/L (98-107); GFR African American 74 mL/min; GFR Non-African American 61 mL/min; Glucose 114 mg/dL (74-106); Potassium 4.5 mmol/L (3.5-5.1); Sodium 146 mmol/L (136-145)
[2021-05-13 09:38] LABS: Alkaline Phosphatase 97 U/L (45-117); Bilirubin, Total 0.7 mg/dL (0.2-1.0); Total Protein 7.5 g/dL (6.4-8.2)
[2021-05-13 10:22] LABS: Urine Bacteria NONE SEEN /hpf (None Seen); Urine Blood Negative /uL (Negative); Urine Specific Gravity 1.024 (1.001-1.035); Urine WBC 23 /hpf (0 - 3)
[2021-05-13 14:39] VITALS: BP 121/80
== END 2021-05-13 14:30 | disposition home or self-care (01) ==
LOC: ER 07:56
DX: F03.90 Unspecified dementia, unspecified severity, without behavioral disturbance, psychotic disturbance, mood disturbance, and anxiety (principal); K22.0 Achalasia of cardia; N39.0 Urinary tract infection, site not specified; E87.0 Hyperosmolality and hypernatremia; I25.2 Old myocardial infarction; I10 Essential (primary) hypertension; J44.9 Chronic obstructive pulmonary disease, unspecified; E78.5 Hyperlipidemia, unspecified; Z86.73 Personal history of transient ischemic attack (TIA), and cerebral infarction without residual deficits; Z95.0 Presence of cardiac pacemaker; Z79.899 Other long term (current) drug therapy; Z88.0 Allergy status to penicillin; Z87.891 Personal history of nicotine dependence
CPT/HCPCS: 36415; 70490; 71045; 80053; 81001; 83880; 84484; 85025; 93005

== ENCOUNTER 2021-06-14 23:13 | Emergency (ER) | payer OTHER ==
[~2021-06-14] VITALS: Ht 160 cm; Wt 54.4 kg
[2021-06-15 01:39] LABS: Basophils # (auto) 0.1 10 ^3/uL (0-0.2); Basophils % (auto) 1.2 % (0.0-2.0); Eosinophils # (auto) 0.6 10 ^3/uL (0-0.8); Hematocrit 36.3 % (41.0-53.0); Hemoglobin 11.9 g/dL (13.5-17.5); Lymphocytes # (auto) 1.7 10 ^3/uL (0.4-5.4); Lymphocytes % (auto) 29.5 % (10.0-50.0); Mean Corpuscular Hemoglobin 29.4 pg (28.0-32.0); Mean Corpuscular Hgb Conc. 32.8 g/dL (32.0-36.0); Mean Corpuscular Volume 89.9 fL (80.0-100.0); Monocytes # (auto) 0.7 10 ^3/uL (0-1.3); Monocytes % (auto) 12.6 % (0.0-12.0); Neutrophils # (auto) 2.7 10 ^3/uL (1.6-8.6); Neutrophils % (auto) 45.7 % (37.0-80.0); Nucleated Red Blood Cells % 0.1 %; Red Blood Cells 4.04 10^6/uL (4.5-5.90); Red Cell Distribution Width 16.4 % (11.8-14.3); White Blood Cell 5.9 10^3/uL (4.4-10.8)
[2021-06-15 01:59] LABS: Potassium 3.8 mmol/L (3.5-5.1)
[2021-06-15 02:05] LABS: BUN/Creatinine Ratio 11.2
[2021-06-15 02:06] LABS: Albumin 2.8 g/dL (3.4-5.0); Calcium 8.5 mg/dL (8.5-10.1)
[2021-06-15 02:10] LABS: Bilirubin, Total 0.2 mg/dL (0.2-1.0); Total Protein 6.7 g/dL (6.4-8.2)
[2021-06-15 05:19] VITALS: BP 112/67
== END 2021-06-15 05:37 | disposition left against medical advice (07) ==
LOC: ER 23:13
DX: R07.89 Other chest pain (principal); I25.2 Old myocardial infarction; I10 Essential (primary) hypertension; J44.9 Chronic obstructive pulmonary disease, unspecified; Z95.1 Presence of aortocoronary bypass graft; Z95.0 Presence of cardiac pacemaker; Z88.0 Allergy status to penicillin; Z79.899 Other long term (current) drug therapy; Z87.891 Personal history of nicotine dependence; Z53.29 Procedure and treatment not carried out because of patient's decision for other reasons
CPT/HCPCS: 36415; 71045; 80053; 83880; 84484; 85025; 93005

== ENCOUNTER 2021-10-13 23:31 | Emergency (ER) | payer OTHER ==
[~2021-10-13] VITALS: Ht 170.2 cm; Wt 63.5 kg
[2021-10-14 01:06] LABS: Hemoglobin 12.5 g/dL (13.5-17.5); Mean Corpuscular Volume 86.5 fL (80.0-100.0)
[2021-10-14 01:14] LABS: Basophils # (auto) 0.1 10 ^3/uL (0-0.2); Basophils % (auto) 0.8 % (0.0-2.0); Eosinophils # (auto) 0.7 10 ^3/uL (0-0.8); Eosinophils % (auto) 8.9 % (0.0-7.0); Hematocrit 37.6 % (41.0-53.0); Lymphocytes # (auto) 2.3 10 ^3/uL (0.4-5.4); Lymphocytes % (auto) 30.1 % (10.0-50.0); Mean Corpuscular Hemoglobin 28.8 pg (28.0-32.0); Mean Corpuscular Hgb Conc. 33.3 g/dL (32.0-36.0); Monocytes # (auto) 0.9 10 ^3/uL (0-1.3); Monocytes % (auto) 12.2 % (0.0-12.0); Neutrophils # (auto) 3.7 10 ^3/uL (1.6-8.6); Red Blood Cells 4.35 10^6/uL (4.5-5.90); Red Cell Distribution Width 15.6 % (11.8-14.3); White Blood Cell 7.7 10^3/uL (4.4-10.8)
[2021-10-14 01:22] LABS: Albumin 3.3 g/dL (3.4-5.0); BUN/Creatinine Ratio 16.3; Calcium 8.5 mg/dL (8.5-10.1)
[2021-10-14 01:27] LABS: Bilirubin, Total 0.2 mg/dL (0.2-1.0)
[2021-10-14] MEDS ORDERED: LORazepam 2MG/ML-1ML VIAL IV ONE (03:15)
[2021-10-14 06:00] VITALS: BP 123/71
== END 2021-10-14 07:04 | disposition home or self-care (01) ==
LOC: EDBD 23:31 → ER 23:31
DX: R07.89 Other chest pain (principal); R06.02 Shortness of breath; I10 Essential (primary) hypertension; J44.9 Chronic obstructive pulmonary disease, unspecified; E78.5 Hyperlipidemia, unspecified; I25.2 Old myocardial infarction; Z95.1 Presence of aortocoronary bypass graft; Z86.73 Personal history of transient ischemic attack (TIA), and cerebral infarction without residual deficits; Z88.0 Allergy status to penicillin; Z87.891 Personal history of nicotine dependence
CPT/HCPCS: 36415; 71045; 80053; 83880; 84484; 85025; 93005; 96374; 99285; J2060

== ENCOUNTER → 2022-01-24 | Outpatient (CLI) | payer OTHER ==
[2022-01-24 16:04] LABS: Urine Bacteria NONE SEEN /hpf (None Seen); Urine Blood Negative /uL (Negative); Urine Mucus FEW (None Seen); Urine Specific Gravity 1.018 (1.001-1.035); Urine WBC 6 /hpf (0 - 3)
== END | disposition home or self-care (01) ==
LOC: LAB 15:38
PROVIDERS: ATTEND Internal Medicine Nephrology
DX: N39.0 Urinary tract infection, site not specified (principal); N40.0 Benign prostatic hyperplasia without lower urinary tract symptoms
CPT/HCPCS: 81001; 84154

== ENCOUNTER 2022-04-19 12:18 | Emergency (ER) | payer OTHER ==
[~2022-04-19] VITALS: Ht 165.1 cm; Wt 60.0 kg
[2022-04-19 12:37] VITALS: BP 110/73
== END 2022-04-19 13:33 | disposition left against medical advice (07) ==
LOC: ER 12:18
DX: M25.532 Pain in left wrist (principal); Z53.21 Procedure and treatment not carried out due to patient leaving prior to being seen by health care provider; W01.0XXA Fall on same level from slipping, tripping and stumbling without subsequent striking against object, initial encounter; Y93.89 Activity, other specified; Y92.89 Other specified places as the place of occurrence of the external cause; Y99.8 Other external cause status

== ENCOUNTER 2022-05-21 09:18 | Emergency (ER) | payer OTHER ==
[~2022-05-21] VITALS: Ht 165.1 cm; Wt 58.3 kg
[2022-05-21 12:55] VITALS: BP 150/77
== END 2022-05-21 13:03 | disposition home or self-care (01) ==
LOC: ER 09:18
DX: S66.912A Strain of unspecified muscle, fascia and tendon at wrist and hand level, left hand, initial encounter (principal); I10 Essential (primary) hypertension; I25.2 Old myocardial infarction; J44.9 Chronic obstructive pulmonary disease, unspecified; Z86.73 Personal history of transient ischemic attack (TIA), and cerebral infarction without residual deficits; Z95.1 Presence of aortocoronary bypass graft; Z88.0 Allergy status to penicillin; X58.XXXA Exposure to other specified factors, initial encounter; Y93.89 Activity, other specified; Y92.89 Other specified places as the place of occurrence of the external cause; Y99.8 Other external cause status
CPT/HCPCS: 73110

== ENCOUNTER 2022-06-30 18:27 | Emergency (ER) | payer OTHER ==
[~2022-06-30] VITALS: Ht 167.6 cm; Wt 60.0 kg
[2022-06-30 18:57] VITALS: BP 98/64
[2022-06-30 19:27] LABS: Basophils # (auto) 0.1 10 ^3/uL (0-0.2); Eosinophils # (auto) 0.6 10 ^3/uL (0-0.8); Hemoglobin 11.9 g/dL (13.5-17.5); Lymphocytes # (auto) 1.7 10 ^3/uL (0.4-5.4); Mean Corpuscular Hemoglobin 25.4 pg (28.0-32.0); Monocytes # (auto) 0.6 10 ^3/uL (0-1.3); Red Blood Cells 4.68 10^6/uL (4.5-5.90)
[2022-06-30 19:29] LABS: Basophils % (auto) 1.2 % (0.0-2.0); Eosinophils % (auto) 9.7 % (0.0-7.0); Hematocrit 37.3 % (41.0-53.0); Lymphocytes % (auto) 29.1 % (10.0-50.0); Mean Corpuscular Hgb Conc. 31.9 g/dL (32.0-36.0); Mean Corpuscular Volume 79.6 fL (80.0-100.0); Monocytes % (auto) 10.2 % (0.0-12.0); Neutrophils % (auto) 49.8 % (37.0-80.0); Nucleated Red Blood Cells % 0.1 %; Red Cell Distribution Width 17.5 % (11.8-14.3)
[2022-06-30 19:46] LABS: Albumin 3.6 g/dL (3.4-5.0); Calcium 8.7 mg/dL (8.5-10.1); Magnesium 2.5 mg/dL (1.6-2.6); Potassium 4.3 mmol/L (3.5-5.1)
[2022-06-30 19:48] LABS: Bilirubin, Total 0.5 mg/dL (0.2-1.0); Total Protein 6.8 g/dL (6.4-8.2)
== END 2022-06-30 21:39 | disposition left against medical advice (07) ==
LOC: EDUNIT# 18:27 → EDBD 18:27 → ER 18:32
DX: I24.9 Acute ischemic heart disease, unspecified (principal); J44.9 Chronic obstructive pulmonary disease, unspecified; E78.5 Hyperlipidemia, unspecified; I10 Essential (primary) hypertension; I25.2 Old myocardial infarction; Z87.891 Personal history of nicotine dependence; Z88.0 Allergy status to penicillin
CPT/HCPCS: 36415; 71045; 80053; 83735; 83880; 84484; 85025; 93005

== ENCOUNTER 2022-07-03 19:59 | Inpatient (IN) | payer OTHER ==
[~2022-07-03] VITALS: Ht 167.6 cm; Wt 62.6 kg
[2022-07-03] MEDS ORDERED: TEMAZEPAM 15 MG CAP PO ONE (22:00)
[2022-07-03] MEDS ORDERED: ACETAMINOPHEN 325 MG TAB PO PRN (22:15)
[2022-07-03] MEDS ORDERED: NITROGLYCERIN 0.4 MG SL TAB SL PRN (22:15)
[2022-07-03] MEDS ORDERED: MORPHINE SULFATE INJ 2 MG/ml SYRG IV PRN (22:15)
[2022-07-03] MEDS ORDERED: ONDANSETRON HCL 4 MG/2 ML VIAL IV PRN (22:15)
[2022-07-03 23:14] LABS: Basophils # (auto) 0.1 10 ^3/uL (0-0.2); Basophils % (auto) 0.8 % (0.0-2.0); Eosinophils # (auto) 0.5 10 ^3/uL (0-0.8); Hemoglobin 11.8 g/dL (13.5-17.5); Neutrophils # (auto) 3.3 10 ^3/uL (1.6-8.6); White Blood Cell 6.8 10^3/uL (4.4-10.8)
[2022-07-03 23:19] LABS: Eosinophils % (auto) 7.8 % (0.0-7.0); Hematocrit 37.1 % (41.0-53.0); Lymphocytes # (auto) 2.1 10 ^3/uL (0.4-5.4); Lymphocytes % (auto) 30.6 % (10.0-50.0); Mean Corpuscular Hemoglobin 25.2 pg (28.0-32.0); Mean Corpuscular Hgb Conc. 31.8 g/dL (32.0-36.0); Mean Corpuscular Volume 79.2 fL (80.0-100.0); Monocytes # (auto) 0.8 10 ^3/uL (0-1.3); Monocytes % (auto) 11.3 % (0.0-12.0); Neutrophils % (auto) 49.5 % (37.0-80.0); Nucleated Red Blood Cells % 0.1 %; Red Blood Cells 4.68 10^6/uL (4.5-5.90); Red Cell Distribution Width 17.7 % (11.8-14.3)
[2022-07-03 23:30] LABS: Chloride 110 mmol/L (98-107); Potassium 4.5 mmol/L (3.5-5.1); Sodium 142 mmol/L (136-145)
[2022-07-03 23:34] LABS: Alanine Aminotransferase 20 U/L (16-61); Albumin 3.4 g/dL (3.4-5.0); Anion Gap 7 (5-15); Aspartate Aminotransferase 22 U/L (15-37); BUN/Creatinine Ratio 15.3; Blood Urea Nitrogen 19 mg/dL (7-18); Calcium 8.9 mg/dL (8.5-10.1); Carbon Dioxide 25 mmol/L (21-32); GFR African American 72 mL/min; GFR Non-African American 59 mL/min; Glucose 83 mg/dL (74-106)
[2022-07-03 23:37] LABS: Alkaline Phosphatase 66 U/L (45-117); Bilirubin, Total 0.4 mg/dL (0.2-1.0); Total Protein 6.9 g/dL (6.4-8.2)
[2022-07-04 00:16] VITALS: BP 133/74
[2022-07-04 05:00] VITALS: BP 128/86
[2022-07-04] MEDS: ASPirin 81 mg TAB PO SCH (09:11)
[2022-07-04] MEDS: LISINOPRIL 10 MG TAB PO SCH (09:14)
[2022-07-04] MEDS: PANTOPRAZOLE 40 MG TAB PO SCH (09:15)
[2022-07-04] MEDS: ISOSORBIDE DINITRATE 10 MG TAB PO SCH ×2 (09:20→22:00)
[2022-07-04 09:22] VITALS: BP 135/83
[2022-07-04] MEDS: CARVEDILOL 3.125 MG TAB PO SCH ×2 (09:30→22:00)
[2022-07-04] MEDS ORDERED: ENOXAPARIN SOD 40 MG/0.4 ML SYRINGE SC SCH (10:00)
[2022-07-04] MEDS ORDERED: PANTOPRAZOLE 40 MG TAB PO SCH (10:00)
[2022-07-04] MEDS: LORazepam 0.5 MG TAB PO PRN ×2 (12:22→21:46)
[2022-07-04] MEDS: PANCREATIC ENZYMES 4200 UNIT CAP PO SCH ×2 (12:58→19:17)
[2022-07-04 13:00] VITALS: BP 119/51
[2022-07-04 17:00] VITALS: BP 142/88
[2022-07-04] MEDS ORDERED: TAMSULOSIN HYDROCHLORIDE 0.4 MG CAP PO SCH (18:00)
[2022-07-04 22:00] VITALS: BP 143/87
[2022-07-04] MEDS ORDERED: TEMAZEPAM 15 MG CAP PO PRN (22:00)
[2022-07-04] MEDS ORDERED: ATORVASTATIN 20 MG TAB PO SCH (22:00)
[2022-07-05 01:19] VITALS: BP 113/65
[2022-07-05 05:00] VITALS: BP 129/76
[2022-07-05] MEDS: LORazepam 0.5 MG TAB PO PRN (05:58)
[2022-07-05] MEDS ORDERED: ADENOSINE 53 MG in GIVE UN-DILUTED 0 ML IV ONE (07:30)
[2022-07-05] MEDS: PANCREATIC ENZYMES 4200 UNIT CAP PO SCH ×2 (08:00→12:20)
[2022-07-05 09:30] VITALS: BP 135/66
[2022-07-05] MEDS: PANTOPRAZOLE 40 MG TAB PO SCH (09:53)
[2022-07-05] MEDS: ASPirin 81 mg TAB PO SCH (09:53)
[2022-07-05] MEDS: CARVEDILOL 3.125 MG TAB PO SCH (09:54)
[2022-07-05] MEDS: ISOSORBIDE DINITRATE 10 MG TAB PO SCH (09:54)
[2022-07-05] MEDS: LISINOPRIL 10 MG TAB PO SCH (09:55)
== END 2022-07-05 14:50 | disposition home or self-care (01) | DRG 303 ==
LOC: TELE-CENTR 20:15
PROVIDERS: ADMIT Nurse Practitioner Family; ATTEND Internal Medicine
DX: I25.110 Atherosclerotic heart disease of native coronary artery with unstable angina pectoris (principal); I50.22 Chronic systolic (congestive) heart failure; K86.1 Other chronic pancreatitis; E78.5 Hyperlipidemia, unspecified; I11.0 Hypertensive heart disease with heart failure; F41.9 Anxiety disorder, unspecified; J44.9 Chronic obstructive pulmonary disease, unspecified; Z20.822 Contact with and (suspected) exposure to COVID-19; N40.0 Benign prostatic hyperplasia without lower urinary tract symptoms; I25.2 Old myocardial infarction; Z85.07 Personal history of malignant neoplasm of pancreas; Z88.0 Allergy status to penicillin; Z95.0 Presence of cardiac pacemaker; Z95.1 Presence of aortocoronary bypass graft
CPT/HCPCS: 36415; 71045; 78452; 80053; 83735; 83880; 84484; 85025; 87426; 93005; 93017; 93306; G0378; J0153

== ENCOUNTER → 2022-07-12 | Outpatient (CLI) | payer OTHER ==
[~2022-07-12] MED LIST changes: +IPRIH INH; +LISI-716 PO; +LORA1TAB23 PO; +PANT40TA2 PO
[2022-07-12 09:00] VITALS: BP 127/68
[2022-07-12 09:15] VITALS: BP 114/72
[2022-07-12 11:39] LABS: Basophils # (auto) 0.1 10 ^3/uL (0-0.2); Eosinophils # (auto) 0.5 10 ^3/uL (0-0.8); Hemoglobin 11.9 g/dL (13.5-17.5); Mean Corpuscular Volume 80.9 fL (80.0-100.0); Monocytes # (auto) 0.4 10 ^3/uL (0-1.3); Monocytes % (auto) 9.2 % (0.0-12.0); Nucleated Red Blood Cells % 0.1 %; White Blood Cell 4.7 10^3/uL (4.4-10.8)
[2022-07-12 11:41] LABS: Basophils % (auto) 1.4 % (0.0-2.0); Eosinophils % (auto) 10.6 % (0.0-7.0); Hematocrit 37.5 % (41.0-53.0); Lymphocytes # (auto) 1.3 10 ^3/uL (0.4-5.4); Lymphocytes % (auto) 26.6 % (10.0-50.0); Mean Corpuscular Hemoglobin 25.6 pg (28.0-32.0); Mean Corpuscular Hgb Conc. 31.6 g/dL (32.0-36.0); Neutrophils # (auto) 2.5 10 ^3/uL (1.6-8.6); Neutrophils % (auto) 52.2 % (37.0-80.0); Red Blood Cells 4.64 10^6/uL (4.5-5.90)
[2022-07-12 11:50] LABS: BUN/Creatinine Ratio 13.2; Calcium 9.1 mg/dL (8.5-10.1)
[2022-07-12 11:57] LABS: INR 1.03 (0.9-1.15); Partial Thromboplastin Time 26.1 sec (24.6-33.4)
== END | disposition home or self-care (01) ==
LOC: Rad HDHVI 08:47
PROVIDERS: ATTEND Internal Medicine Cardiovascular Disease
DX: I50.43 Acute on chronic combined systolic (congestive) and diastolic (congestive) heart failure (principal)
CPT/HCPCS: 36415; 71046; 80048; 85025; 85610; 85730; 93005; G0463

== ENCOUNTER 2022-07-16 11:32 | Inpatient (IN) | payer OTHER ==
[2022-07-16] VITALS (12 sets, daily range): BP systolic 101–143; BP diastolic 68–95
[~2022-07-16] VITALS: Ht 167.6 cm; Wt 60.4 kg
[~2022-07-16 11:32] MED LIST changes: -ALBUAER3 IN; -DICY20TA PO; -HYDR-4833 PO; -LORA2TAB12 PO; -MELO1TAB73 PO
[2022-07-16] MEDS ORDERED: VANCOMYCIN 1GM/250ML 250 ML IV ONE (12:15)
[2022-07-16] MEDS ORDERED: fentaNYL CITRATE 100 MCG/2 ML VL ONE (13:04)
[2022-07-16] MEDS ORDERED: VANCOMYCIN HCL 1000 MG VL ONE (13:07)
[2022-07-16] MEDS ORDERED: MIDAZOLAM HCL 2MG/2ML 2ml VIAL (1mg/ml) ONE (13:07)
[2022-07-16] MEDS ORDERED: LIDOCAINE 2%HCL (LOCAL ANESTH.) INJ 10ml MDV ONE (13:10)
[2022-07-16] MEDS ORDERED: IODIXANOL 320MG/ML 100ML BTL IV ONE (14:04)
[2022-07-16] MEDS ORDERED: FUROSEMIDE 20 MG/2 ML VIAL ONE (14:38)
[2022-07-16] MEDS ORDERED: MORPHINE SULFATE INJ 2 MG/ml SYRG IV PRN (15:15)
[2022-07-16] MEDS ORDERED: IPRATROPIUM BROMIDE HFA AER IN PRN (16:45)
[2022-07-16] MEDS: HYDROcodone-ACET 5/325MG TAB PO PRN (20:55)
[2022-07-16] MEDS: LORazepam 0.5 MG TAB PO SCH (21:37)
[2022-07-16] MEDS: CARVEDILOL 12.5 MG TAB PO SCH (21:38)
[2022-07-16] MEDS: ISOSORBIDE DINITRATE 10 MG TAB PO SCH (21:38)
[2022-07-16] MEDS ORDERED: PRAVASTATIN SODIUM 20 MG TAB PO SCH (22:00)
[2022-07-17] MEDS: HYDROcodone-ACET 5/325MG TAB PO PRN ×2 (00:36→04:59)
[2022-07-17 05:00] VITALS: BP 119/72
[2022-07-17] MEDS: LORazepam 0.5 MG TAB PO SCH (05:52)
[2022-07-17] MEDS ORDERED: VANCOMYCIN 1GM/250ML 250 ML IV ONE (06:00)
[2022-07-17 08:00] VITALS: BP 118/73
[2022-07-17] MEDS: ISOSORBIDE DINITRATE 10 MG TAB PO SCH (08:59)
[2022-07-17] MEDS: CARVEDILOL 12.5 MG TAB PO SCH (09:02)
[2022-07-17] MEDS ORDERED: TAMSULOSIN HYDROCHLORIDE 0.4 MG CAP PO SCH (10:00)
[2022-07-17] MEDS ORDERED: PANTOPRAZOLE 40 MG TAB PO SCH (10:00)
[2022-07-17] MEDS ORDERED: levoFLOXacin 500MG 100 ML IV SCH (10:00)
[2022-07-17] MEDS ORDERED: LISINOPRIL 10 MG TAB PO SCH (10:00)
[2022-07-17 10:44] VITALS: BP 118/73
== END 2022-07-17 12:47 | disposition home or self-care (01) | DRG 227 ==
LOC: CATH 11:32 → TELE 15:13 → TELE-WESTW 18:10
PROVIDERS: ADMIT Internal Medicine Cardiovascular Disease; ATTEND Internal Medicine
PROC: 0JPT0PZ Removal of Cardiac Rhythm Related Device from Trunk Subcutaneous Tissue and Fascia, Open Approach (ICD-10-PCS; principal; 2022-07-16)
PROC: 0JH609Z Insertion of Cardiac Resynchronization Defibrillator Pulse Generator into Chest Subcutaneous Tissue and Fascia, Open Approach (ICD-10-PCS; 2022-07-16)
PROC: 02HK3KZ Insertion of Defibrillator Lead into Right Ventricle, Percutaneous Approach (ICD-10-PCS; 2022-07-16)
PROC: 02PA3MZ Removal of Cardiac Lead from Heart, Percutaneous Approach (ICD-10-PCS; 2022-07-16)
PROC: 02H63KZ Insertion of Defibrillator Lead into Right Atrium, Percutaneous Approach (ICD-10-PCS; 2022-07-16)
DX: Z45.018 Encounter for adjustment and management of other part of cardiac pacemaker (principal); I50.22 Chronic systolic (congestive) heart failure; E78.5 Hyperlipidemia, unspecified; I11.0 Hypertensive heart disease with heart failure; I25.10 Atherosclerotic heart disease of native coronary artery without angina pectoris; Z20.822 Contact with and (suspected) exposure to COVID-19; K86.89 Other specified diseases of pancreas; N40.0 Benign prostatic hyperplasia without lower urinary tract symptoms; Z95.1 Presence of aortocoronary bypass graft
CPT/HCPCS: 71045; 93005; 99152; 99153; C1882; G0378; J1956; J2001; J2250; Q9967

== ENCOUNTER 2022-08-15 14:45 | Inpatient (IN) | payer OTHER ==
[~2022-08-15] VITALS: Ht 170.2 cm; Wt 59.0 kg
[2022-08-15 16:50] LABS: Basophils # (auto) 0.1 10 ^3/uL (0-0.2); Basophils % (auto) 1.2 % (0.0-2.0); Eosinophils # (auto) 0.5 10 ^3/uL (0-0.8); Eosinophils % (auto) 8.6 % (0.0-7.0); Hematocrit 34.2 % (41.0-53.0); Lymphocytes # (auto) 1.4 10 ^3/uL (0.4-5.4); Lymphocytes % (auto) 24.5 % (10.0-50.0); Mean Corpuscular Hemoglobin 25.3 pg (28.0-32.0); Mean Corpuscular Hgb Conc. 32.1 g/dL (32.0-36.0); Mean Corpuscular Volume 78.9 fL (80.0-100.0); Monocytes # (auto) 0.8 10 ^3/uL (0-1.3); Monocytes % (auto) 13.7 % (0.0-12.0); Nucleated Red Blood Cells % 0.1 %; Red Blood Cells 4.34 10^6/uL (4.5-5.90); Red Cell Distribution Width 16.7 % (11.8-14.3); White Blood Cell 5.8 10^3/uL (4.4-10.8)
[2022-08-15 17:07] LABS: Albumin 3.4 g/dL (3.4-5.0); Calcium 8.6 mg/dL (8.5-10.1); Potassium 4.6 mmol/L (3.5-5.1)
[2022-08-15 17:10] LABS: BUN/Creatinine Ratio 16.1
[2022-08-15 17:12] LABS: Bilirubin, Total 0.4 mg/dL (0.2-1.0); Total Protein 6.5 g/dL (6.4-8.2)
[2022-08-15] MEDS ORDERED: TAMSULOSIN HYDROCHLORIDE 0.4 MG CAP PO SCH (18:00)
[2022-08-15] MEDS ORDERED: IOHEXOL 350 MG/ML 100ML IJ ONE (21:03)
[2022-08-15] MEDS ORDERED: ALBUTEROL SULF 2.5 MG/0.5ML(0.5%) NEB SOLN NEB PRN (21:15)
[2022-08-15] MEDS ORDERED: ACETAMINOPHEN 325 MG TAB PO PRN (21:15)
[2022-08-15] MEDS ORDERED: MORPHINE SULFATE INJ 2 MG/ml SYRG IV PRN (21:15)
[2022-08-15] MEDS ORDERED: NITROGLYCERIN 0.4 MG SL TAB SL PRN (21:15)
[2022-08-15] MEDS ORDERED: ENOXAPARIN SOD 60 MG/0.6 ML SYRINGE SC ONE (21:15)
[2022-08-15] MEDS ORDERED: CARVEDILOL 12.5 MG TAB PO SCH (22:00)
[2022-08-15] MEDS ORDERED: PRAVASTATIN SODIUM 20 MG TAB PO SCH (22:00)
[2022-08-15] MEDS ORDERED: ISOSORBIDE DINITRATE 10 MG TAB PO SCH (22:00)
[2022-08-15 22:12] LABS: Cholesterol 140 mg/dL (< 200); HDL Cholesterol 43 mg/dL (40-59); LDL Cholesterol 99 mg/dL (< 100); Triglycerides 80 mg/dL (< 150)
[2022-08-15 22:51] VITALS: BP 127/76
[2022-08-16 07:06] LABS: Basophils # (auto) 0.1 10 ^3/uL (0-0.2); Eosinophils # (auto) 0.5 10 ^3/uL (0-0.8); Eosinophils % (auto) 9.7 % (0.0-7.0); Lymphocytes # (auto) 1.4 10 ^3/uL (0.4-5.4); Mean Corpuscular Hgb Conc. 31.8 g/dL (32.0-36.0); Monocytes # (auto) 0.6 10 ^3/uL (0-1.3); Red Cell Distribution Width 17.4 % (11.8-14.3)
[2022-08-16 07:10] LABS: Basophils % (auto) 1.4 % (0.0-2.0); Hematocrit 34.1 % (41.0-53.0); Hemoglobin 10.8 g/dL (13.5-17.5); Lymphocytes % (auto) 24.9 % (10.0-50.0); Mean Corpuscular Hemoglobin 25.2 pg (28.0-32.0); Mean Corpuscular Volume 79.2 fL (80.0-100.0); Monocytes % (auto) 10.6 % (0.0-12.0); Neutrophils % (auto) 53.4 % (37.0-80.0); Red Blood Cells 4.31 10^6/uL (4.5-5.90); White Blood Cell 5.6 10^3/uL (4.4-10.8)
[2022-08-16 07:49] LABS: Potassium 4.2 mmol/L (3.5-5.1)
[2022-08-16 07:55] LABS: Albumin 3.5 g/dL (3.4-5.0); BUN/Creatinine Ratio 16.9
[2022-08-16 07:58] LABS: Bilirubin, Total 0.4 mg/dL (0.2-1.0); Total Protein 6.9 g/dL (6.4-8.2)
[2022-08-16] MEDS ORDERED: methylPREDNISolone SOD SUCC 125 MG/2 ML VL IV ONE (08:00)
[2022-08-16] MEDS ORDERED: FUROSEMIDE 20 MG/2 ML VIAL IV ONE (08:00)
[2022-08-16] MEDS ORDERED: PRE5T PO (09:09)
[2022-08-16] MEDS ORDERED: FLUT100M IN (09:09)
[2022-08-16] MEDS ORDERED: DOXY-346 PO (09:09)
[2022-08-16] MEDS ORDERED: PRED10TA PO (09:09)
[2022-08-16] MEDS ORDERED: PRED20TA2 PO (09:09)
[2022-08-16] MEDS ORDERED: LISINOPRIL 10 MG TAB PO SCH (10:00)
[2022-08-16] MEDS ORDERED: ENOXAPARIN SOD 60 MG/0.6 ML SYRINGE SC SCH (10:00)
[2022-08-16] MEDS ORDERED: ASPirin-EC 81 mg tab PO SCH (10:00)
[2022-08-16] MEDS ORDERED: IPRATROPIUM BROM 0.5 MG/2.5ML INH SOL NEB SCH (12:00)
[2022-08-16] MEDS ORDERED: ALBUTEROL SULF 2.5 MG/0.5ML(0.5%) NEB SOLN NEB SCH (12:00)
[2022-08-16 12:11] VITALS: BP 143/87
[2022-08-16] MEDS ORDERED: methylPREDNISolone SOD SUCC 40 MG/ML VL IV SCH (14:00)
== END 2022-08-16 12:04 | disposition home or self-care (01) | DRG 192 ==
LOC: ER 14:45 → TELE 21:13
PROVIDERS: ADMIT Nurse Practitioner Family; ATTEND Internal Medicine
DX: J44.1 Chronic obstructive pulmonary disease with (acute) exacerbation (principal); I10 Essential (primary) hypertension; N40.0 Benign prostatic hyperplasia without lower urinary tract symptoms; I25.10 Atherosclerotic heart disease of native coronary artery without angina pectoris; G89.29 Other chronic pain; R79.89 Other specified abnormal findings of blood chemistry; Z20.822 Contact with and (suspected) exposure to COVID-19; E78.5 Hyperlipidemia, unspecified; Z95.1 Presence of aortocoronary bypass graft; Z88.0 Allergy status to penicillin; I25.2 Old myocardial infarction; Z87.891 Personal history of nicotine dependence
CPT/HCPCS: 36415; 36600; 71045; 71250; 80053; 80061; 82805; 83605; 83880; 84443; 84484; 85025; 85379; 87426; 93005; 96374; 96375; G0378

== ENCOUNTER → 2022-09-09 | Outpatient (CLI) | payer OTHER ==
[~2022-09-09] MED LIST changes: +ALBU108A5 IN; +DOXY-346 PO; +FLUT100M IN; +PRE5T PO; +PRED10TA PO; +PRED20TA2 PO
[2022-09-09 12:58] VITALS: BP 123/78
[2022-09-09 16:48] LABS: Calcium 8.7 mg/dL (8.5-10.1); Potassium 3.8 mmol/L (3.5-5.1)
[2022-09-09 16:50] LABS: BUN/Creatinine Ratio 9.4; Basophils # (auto) 0.1 10 ^3/uL (0-0.2); Eosinophils # (auto) 0.5 10 ^3/uL (0-0.8); Hematocrit 32.8 % (41.0-53.0); Lymphocytes # (auto) 1.2 10 ^3/uL (0.4-5.4); Monocytes # (auto) 0.9 10 ^3/uL (0-1.3); Neutrophils % (auto) 51.9 % (37.0-80.0); Nucleated Red Blood Cells % 0.1 %; Red Cell Distribution Width 17.6 % (11.8-14.3)
[2022-09-09 16:53] LABS: Basophils % (auto) 1.2 % (0.0-2.0); Eosinophils % (auto) 8.8 % (0.0-7.0); Hemoglobin 10.6 g/dL (13.5-17.5); Lymphocytes % (auto) 21.6 % (10.0-50.0); Mean Corpuscular Hemoglobin 25.5 pg (28.0-32.0); Mean Corpuscular Hgb Conc. 32.3 g/dL (32.0-36.0); Mean Corpuscular Volume 78.9 fL (80.0-100.0); Monocytes % (auto) 16.5 % (0.0-12.0); Neutrophils # (auto) 2.9 10 ^3/uL (1.6-8.6); Red Blood Cells 4.15 10^6/uL (4.5-5.90); White Blood Cell 5.6 10^3/uL (4.4-10.8)
[2022-09-09 17:11] LABS: INR 0.99 (0.9-1.15); Partial Thromboplastin Time 29.4 sec (24.6-33.4)
== END | disposition home or self-care (01) ==
LOC: Rad HDHVI 12:44
PROVIDERS: ATTEND Internal Medicine Cardiovascular Disease
DX: R79.1 Abnormal coagulation profile (principal)
CPT/HCPCS: 36415; 71046; 80048; 85025; 85610; 85730; G0463

== ENCOUNTER 2022-09-13 11:36 | Inpatient (IN) | payer OTHER ==
[~2022-09-13] VITALS: Ht 170.2 cm; Wt 0.1 kg
[~2022-09-13 11:36] MED LIST changes: -ALBU108A5 IN; +ALBUAER3 IN; -DOXY-346 PO; -FLUT100M IN; -IPRIH INH; -MULT0.07 PO; -PRE5T PO; -PRED10TA PO; -PRED20TA2 PO
[2022-09-13] MEDS ORDERED: ALBUTEROL SULF 2.5 MG/0.5ML(0.5%) NEB SOLN HHN ONE (12:30)
[2022-09-13] MEDS ORDERED: IPRATROPIUM BROM 0.5 MG/2.5ML INH SOL HHN ONE (12:30)
[2022-09-13] MEDS ORDERED: methylPREDNISolone SOD SUCC 125 MG/2 ML VL IV ONE (12:30)
[2022-09-13 12:52] LABS: Eosinophils # (auto) 0.3 10 ^3/uL (0-0.8); Hematocrit 36.6 % (41.0-53.0); Mean Corpuscular Hgb Conc. 32.7 g/dL (32.0-36.0); Monocytes # (auto) 0.9 10 ^3/uL (0-1.3); Neutrophils # (auto) 4.1 10 ^3/uL (1.6-8.6)
[2022-09-13 12:54] LABS: Basophils # (auto) 0 10 ^3/uL (0-0.2); Basophils % (auto) 0.7 % (0.0-2.0); Eosinophils % (auto) 5.1 % (0.0-7.0); Lymphocytes # (auto) 0.8 10 ^3/uL (0.4-5.4); Lymphocytes % (auto) 13.6 % (10.0-50.0); Mean Corpuscular Hemoglobin 25.8 pg (28.0-32.0); Mean Corpuscular Volume 78.7 fL (80.0-100.0); Monocytes % (auto) 14.7 % (0.0-12.0); Neutrophils % (auto) 65.9 % (37.0-80.0); Nucleated Red Blood Cells % 0.1 %; Red Blood Cells 4.65 10^6/uL (4.5-5.90); Red Cell Distribution Width 17.6 % (11.8-14.3); White Blood Cell 6.1 10^3/uL (4.4-10.8)
[2022-09-13 13:07] LABS: INR 1.02 (0.9-1.15); Partial Thromboplastin Time 26.2 sec (24.6-33.4)
[2022-09-13 13:20] LABS: Potassium 4.2 mmol/L (3.5-5.1)
[2022-09-13 13:27] LABS: Albumin 3.7 g/dL (3.4-5.0); BUN/Creatinine Ratio 11.9; Bilirubin, Total 0.8 mg/dL (0.2-1.0); Calcium 9.3 mg/dL (8.5-10.1); Magnesium 2.4 mg/dL (1.6-2.6); Total Protein 7.6 g/dL (6.4-8.2)
[2022-09-13] MEDS ORDERED: ALBUTEROL MEDNEB 2.5 mg/3ml NEB NEB PRN (19:45)
[2022-09-13] MEDS ORDERED: IPRATROPIUM BROM 0.5 MG/2.5ML INH SOL NEB PRN (21:45)
[2022-09-13] MEDS ORDERED: ONDANSETRON HCL 4 MG/2 ML VIAL IV PRN (21:45)
[2022-09-13] MEDS ORDERED: HYDROcodone-ACET 5/325MG TAB PO PRN (21:45)
[2022-09-13] MEDS ORDERED: DOCUSATE SOD 100 MG CAP PO PRN (21:45)
[2022-09-13] MEDS ORDERED: ACETAMINOPHEN 325 MG TAB PO PRN (21:45)
[2022-09-13 21:57] VITALS: BP 129/86
[2022-09-13] MEDS ORDERED: MORPHINE SULFATE INJ 2 MG/ml SYRG IV PRN (22:45)
[2022-09-13] MEDS ORDERED: NITROGLYCERIN 0.4 MG SL TAB SL PRN (22:45)
[2022-09-13] MEDS: methylPREDNISolone SOD SUCC 40 MG/ML VL IV SCH (22:59)
[2022-09-13] MEDS: SODIUM CHLOR 0.9% PF (SALINE LOCK) 10ML VIAL/SYR IV SCH (23:00)
[2022-09-14 06:11] LABS: Urine Bacteria NONE SEEN /hpf (None Seen); Urine Blood Negative /uL (Negative); Urine Mucus FEW (None Seen); Urine Specific Gravity > 1.035 (1.001-1.035); Urine WBC 28 /hpf (0 - 3)
[2022-09-14] MEDS: methylPREDNISolone SOD SUCC 40 MG/ML VL IV SCH ×3 (06:14→22:05)
[2022-09-14] MEDS: SODIUM CHLOR 0.9% PF (SALINE LOCK) 10ML VIAL/SYR IV SCH ×3 (06:14→22:07)
[2022-09-14 06:26] LABS: Basophils # (auto) 0 10 ^3/uL (0-0.2); Eosinophils # (auto) 0 10 ^3/uL (0-0.8); Eosinophils % (auto) 0.1 % (0.0-7.0); Hemoglobin 11.1 g/dL (13.5-17.5); Lymphocytes # (auto) 0.3 10 ^3/uL (0.4-5.4); Monocytes # (auto) 0 10 ^3/uL (0-1.3); Neutrophils # (auto) 2.8 10 ^3/uL (1.6-8.6); White Blood Cell 3.2 10^3/uL (4.4-10.8)
[2022-09-14 06:28] LABS: Basophils % (auto) 0.2 % (0.0-2.0); Hematocrit 33.9 % (41.0-53.0); Mean Corpuscular Hemoglobin 25.3 pg (28.0-32.0); Mean Corpuscular Hgb Conc. 32.6 g/dL (32.0-36.0); Mean Corpuscular Volume 77.4 fL (80.0-100.0); Monocytes % (auto) 1.6 % (0.0-12.0); Neutrophils % (auto) 88.1 % (37.0-80.0); Nucleated Red Blood Cells % 0.1 %; Red Blood Cells 4.38 10^6/uL (4.5-5.90); Red Cell Distribution Width 16.8 % (11.8-14.3)
[2022-09-14 06:58] LABS: Potassium 4.4 mmol/L (3.5-5.1)
[2022-09-14 07:06] LABS: Albumin 3.2 g/dL (3.4-5.0); BUN/Creatinine Ratio 12.3; Bilirubin, Total 0.6 mg/dL (0.2-1.0); Calcium 8.9 mg/dL (8.5-10.1); Total Protein 6.5 g/dL (6.4-8.2)
[2022-09-14] MEDS: ASPirin 81 mg TAB PO SCH (10:58)
[2022-09-14 11:05] LABS: Protein, Urine 43.3 mg/dL (0.0-11.9)
[2022-09-14] MEDS: SODIUM CHLORIDE 0.9% 1,000 ML IV SCH ×2 (14:12→23:06)
[2022-09-14] MEDS: ENOXAPARIN SOD 40 MG/0.4 ML SYRINGE SC SCH (14:12)
[2022-09-14] MEDS ORDERED: ISOSORBIDE DINITRATE 10 MG TAB PO ONE (22:00)
[2022-09-14] MEDS ORDERED: TAMSULOSIN HYDROCHLORIDE 0.4 MG CAP PO ONE ×2 (22:00)
[2022-09-14] MEDS: CARVEDILOL 12.5 MG TAB PO SCH (22:07)
[2022-09-14 23:38] VITALS: BP 125/82
[2022-09-15] MEDS: SODIUM CHLOR 0.9% PF (SALINE LOCK) 10ML VIAL/SYR IV SCH ×2 (06:30→14:00)
[2022-09-15] MEDS: methylPREDNISolone SOD SUCC 40 MG/ML VL IV SCH ×2 (06:30→14:58)
[2022-09-15] MEDS ORDERED: LISINOPRIL 10 MG TAB PO SCH (10:00)
[2022-09-15] MEDS: ASPirin 81 mg TAB PO SCH (10:38)
[2022-09-15] MEDS: ENOXAPARIN SOD 40 MG/0.4 ML SYRINGE SC SCH (10:38)
[2022-09-15] MEDS: CARVEDILOL 12.5 MG TAB PO SCH (10:39)
[2022-09-15] MEDS: SODIUM CHLORIDE 0.9% 1,000 ML IV SCH (12:55)
[2022-09-15 13:00] VITALS: BP 124/77
[2022-09-15] MEDS ORDERED: AZIT250T8 PO (15:52)
[2022-09-15 17:11] VITALS: BP 121/82
== END 2022-09-15 18:25 | disposition home or self-care (01) | DRG 280 ==
LOC: ER 11:36 → OVERFLOW 22:43 → TELE-CENTR 09-14 23:37
PROVIDERS: ADMIT Nurse Practitioner Family; ATTEND Nurse Practitioner Family
DX: I21.4 Non-ST elevation (NSTEMI) myocardial infarction (principal); J18.9 Pneumonia, unspecified organism; N17.0 Acute kidney failure with tubular necrosis; J44.1 Chronic obstructive pulmonary disease with (acute) exacerbation; J44.0 Chronic obstructive pulmonary disease with (acute) lower respiratory infection; R09.02 Hypoxemia; Z20.822 Contact with and (suspected) exposure to COVID-19; D63.1 Anemia in chronic kidney disease; I12.9 Hypertensive chronic kidney disease with stage 1 through stage 4 chronic kidney disease, or unspecified chronic kidney disease; I48.91 Unspecified atrial fibrillation; N18.31 Chronic kidney disease, stage 3a; Z95.1 Presence of aortocoronary bypass graft
CPT/HCPCS: 36415; 71045; 71275; 76775; 80053; 81001; 82306; 82570; 83735; 83880; 83970; 84100; 84156; 84300; 84484; 85025; 85379; 85610; 85730; 87426; 93005; 94644; 99152; 99153; C1874; G0378; J2250

== ENCOUNTER 2022-09-25 11:49 | Inpatient (IN) | payer OTHER ==
[~2022-09-25] VITALS: Ht 170.2 cm; Wt 59.9 kg
[~2022-09-25 11:49] MED LIST changes: -ALBUAER3 IN; +AZIT250T8 PO; -NITR0.4S29 SL
[2022-09-25] MEDS ORDERED: methylPREDNISolone SOD SUCC 125 MG/2 ML VL IV ONE (12:15)
[2022-09-25 12:39] LABS: Eosinophils # (auto) 0.3 10 ^3/uL (0-0.8); Eosinophils % (auto) 4.5 % (0.0-7.0); Neutrophils # (auto) 4.2 10 ^3/uL (1.6-8.6)
[2022-09-25 12:40] LABS: Albumin 3.4 g/dL (3.4-5.0); Calcium 8.9 mg/dL (8.5-10.1); Magnesium 2.3 mg/dL (1.6-2.6); Potassium 4.7 mmol/L (3.5-5.1)
[2022-09-25 12:41] LABS: Basophils # (auto) 0 10 ^3/uL (0-0.2); Basophils % (auto) 0.7 % (0.0-2.0); Hematocrit 35.4 % (41.0-53.0); Hemoglobin 11.4 g/dL (13.5-17.5); Lymphocytes % (auto) 15.9 % (10.0-50.0); Mean Corpuscular Hemoglobin 25.4 pg (28.0-32.0); Mean Corpuscular Hgb Conc. 32.3 g/dL (32.0-36.0); Mean Corpuscular Volume 78.8 fL (80.0-100.0); Monocytes % (auto) 14.7 % (0.0-12.0); Neutrophils % (auto) 64.2 % (37.0-80.0); Red Cell Distribution Width 17.7 % (11.8-14.3); White Blood Cell 6.5 10^3/uL (4.4-10.8)
[2022-09-25 12:44] LABS: BUN/Creatinine Ratio 13.7; Bilirubin, Total 0.3 mg/dL (0.2-1.0); Total Protein 6.7 g/dL (6.4-8.2)
[2022-09-25] MEDS ORDERED: ACETAMINOPHEN 325 MG TAB PO PRN (14:15)
[2022-09-25] MEDS ORDERED: ALBUTEROL MEDNEB 2.5 mg/3ml NEB NEB PRN (14:15)
[2022-09-25 14:25] VITALS: BP 95/65
[2022-09-25] MEDS: SODIUM CHLORIDE 0.9% 1,000 ML IV SCH (14:55)
[2022-09-25 16:55] LABS: Urine Bacteria FEW /hpf (None Seen); Urine Blood Negative /uL (Negative); Urine Specific Gravity 1.018 (1.001-1.035); Urine WBC 15 /hpf (0 - 3)
[2022-09-25] MEDS: ALBUTEROL MEDNEB 2.5 mg/3ml NEB NEB SCH ×2 (18:56→22:32)
[2022-09-25] MEDS: IPRATROPIUM BROM 0.5 MG/2.5ML INH SOL NEB SCH ×2 (18:56→22:33)
[2022-09-25] MEDS: methylPREDNISolone SOD SUCC 125 MG/2 ML VL IV SCH (22:21)
[2022-09-26] MEDS: ALBUTEROL MEDNEB 2.5 mg/3ml NEB NEB SCH ×6 (01:38→22:54)
[2022-09-26] MEDS: IPRATROPIUM BROM 0.5 MG/2.5ML INH SOL NEB SCH ×6 (01:38→22:54)
[2022-09-26 06:33] LABS: Basophils # (auto) 0 10 ^3/uL (0-0.2); Eosinophils # (auto) 0 10 ^3/uL (0-0.8); Hematocrit 37.4 % (41.0-53.0); Hemoglobin 11.9 g/dL (13.5-17.5); Lymphocytes # (auto) 0.9 10 ^3/uL (0.4-5.4); Lymphocytes % (auto) 10.5 % (10.0-50.0); Mean Corpuscular Hemoglobin 24.9 pg (28.0-32.0); Mean Corpuscular Hgb Conc. 31.8 g/dL (32.0-36.0); Mean Corpuscular Volume 78.5 fL (80.0-100.0); Monocytes # (auto) 0.1 10 ^3/uL (0-1.3); Monocytes % (auto) 1.3 % (0.0-12.0); Neutrophils # (auto) 7.3 10 ^3/uL (1.6-8.6); Neutrophils % (auto) 88.2 % (37.0-80.0); Red Blood Cells 4.76 10^6/uL (4.5-5.90); Red Cell Distribution Width 17.6 % (11.8-14.3); White Blood Cell 8.3 10^3/uL (4.4-10.8)
[2022-09-26 06:58] LABS: Potassium 4.1 mmol/L (3.5-5.1)
[2022-09-26] MEDS: SODIUM CHLORIDE 0.9% 1,000 ML IV SCH (07:00)
[2022-09-26 07:06] LABS: Albumin 3.5 g/dL (3.4-5.0); BUN/Creatinine Ratio 16.4; Bilirubin, Total 0.4 mg/dL (0.2-1.0); Calcium 9.1 mg/dL (8.5-10.1); Total Protein 7.3 g/dL (6.4-8.2)
[2022-09-26] MEDS: ENOXAPARIN SOD 40 MG/0.4 ML SYRINGE SC SCH (09:45)
[2022-09-26] MEDS: methylPREDNISolone SOD SUCC 125 MG/2 ML VL IV SCH ×2 (09:45→22:35)
[2022-09-26] MEDS ORDERED: FUROSEMIDE 20 MG/2 ML VIAL IV ONE (10:30)
[2022-09-26] MEDS ORDERED: CLOPIDOGREL BISULFATE 75 MG TAB PO ONE (10:30)
[2022-09-26] MEDS ORDERED: DOXYCYCLINE 100 MG TAB/CAP PO ONE (10:30)
[2022-09-26] MEDS ORDERED: cefTRIAXone 1GM/50ML D5W 50 ML IV ONE (11:15)
[2022-09-26 11:58] LABS: Urine Bacteria NONE SEEN /hpf (None Seen); Urine Blood Negative /uL (Negative); Urine Specific Gravity 1.011 (1.001-1.035); Urine WBC 2 /hpf (0 - 3)
[2022-09-26] MEDS: FUROSEMIDE 20 MG/2 ML VIAL IV SCH (18:45)
[2022-09-26 22:17] VITALS: BP 107/88
[2022-09-26] MEDS: CARVEDILOL 12.5 MG TAB PO SCH (22:34)
[2022-09-26] MEDS: DOXYCYCLINE 100 MG TAB/CAP PO SCH (22:34)
[2022-09-26 23:12] VITALS: BP 107/66
[2022-09-27] MEDS: ALBUTEROL MEDNEB 2.5 mg/3ml NEB NEB SCH ×4 (02:00→14:00)
[2022-09-27] MEDS: IPRATROPIUM BROM 0.5 MG/2.5ML INH SOL NEB SCH ×4 (02:00→14:00)
[2022-09-27 04:53] VITALS: BP 110/64
[2022-09-27] MEDS: FUROSEMIDE 20 MG/2 ML VIAL IV SCH (06:14)
[2022-09-27 07:07] LABS: Calcium 9.1 mg/dL (8.5-10.1); Potassium 4.6 mmol/L (3.5-5.1)
[2022-09-27 07:10] LABS: BUN/Creatinine Ratio 31.1
[2022-09-27 09:00] VITALS: BP 128/79
[2022-09-27] MEDS ORDERED: cefTRIAXone 1GM/50ML D5W 50 ML IV SCH (09:00)
[2022-09-27] MEDS: methylPREDNISolone SOD SUCC 125 MG/2 ML VL IV SCH (09:11)
[2022-09-27] MEDS: CARVEDILOL 12.5 MG TAB PO SCH (09:12)
[2022-09-27] MEDS: DOXYCYCLINE 100 MG TAB/CAP PO SCH (09:12)
[2022-09-27] MEDS: ENOXAPARIN SOD 40 MG/0.4 ML SYRINGE SC SCH (09:12)
[2022-09-27] MEDS ORDERED: CLOPIDOGREL BISULFATE 75 MG TAB PO SCH (10:00)
[2022-09-27] MEDS ORDERED: LISINOPRIL 10 MG TAB PO SCH (10:00)
[2022-09-27 13:00] VITALS: BP 112/73
[2022-09-27 16:26] VITALS: BP 144/67
[2022-09-27 16:31] VITALS: BP 144/67
[2022-09-27] MEDS ORDERED: ALBUTEROL SULF 2.5 MG/0.5ML(0.5%) NEB SOLN ONE (17:36)
[2022-09-27] MEDS ORDERED: methylPREDNISolone SOD SUCC 125 MG/2 ML VL IV SCH (22:00)
== END 2022-09-27 17:10 | disposition home or self-care (01) | DRG 189 ==
LOC: ER 11:49 → EDBD 11:49 → OVERFLOW 14:12 → EAST 09-26 22:00
PROVIDERS: ADMIT Nurse Practitioner Family; ATTEND Internal Medicine
DX: J96.01 Acute respiratory failure with hypoxia (principal); J44.1 Chronic obstructive pulmonary disease with (acute) exacerbation; N39.0 Urinary tract infection, site not specified; E78.5 Hyperlipidemia, unspecified; I10 Essential (primary) hypertension; Z20.822 Contact with and (suspected) exposure to COVID-19; I25.10 Atherosclerotic heart disease of native coronary artery without angina pectoris; Z66 Do not resuscitate; Z95.1 Presence of aortocoronary bypass graft; Z95.5 Presence of coronary angioplasty implant and graft; I25.2 Old myocardial infarction; Z95.0 Presence of cardiac pacemaker
CPT/HCPCS: 36415; 36600; 71045; 80048; 80053; 81001; 82805; 83735; 83880; 84484; 85025; 85379; 87426; 87804; 93005; 94640; 96361; 96374; G0378; J0696

== ENCOUNTER 2022-09-28 16:58 | Inpatient (IN) | payer OTHER ==
[~2022-09-28] VITALS: Ht 170.2 cm; Wt 58.0 kg
[~2022-09-28 16:58] MED LIST changes: -AZIT250T8 PO
[2022-09-28 17:32] LABS: Basophils # (auto) 0 10 ^3/uL (0-0.2); Basophils % (auto) 0.1 % (0.0-2.0); Eosinophils # (auto) 0 10 ^3/uL (0-0.8); Hemoglobin 10.8 g/dL (13.5-17.5); Mean Corpuscular Hgb Conc. 31.9 g/dL (32.0-36.0); Neutrophils # (auto) 10.6 10 ^3/uL (1.6-8.6)
[2022-09-28 17:33] LABS: Eosinophils % (auto) 0.1 % (0.0-7.0); Hematocrit 33.8 % (41.0-53.0); Lymphocytes # (auto) 1.2 10 ^3/uL (0.4-5.4); Mean Corpuscular Hemoglobin 25.3 pg (28.0-32.0); Mean Corpuscular Volume 79.2 fL (80.0-100.0); Monocytes # (auto) 1.3 10 ^3/uL (0-1.3); Monocytes % (auto) 9.7 % (0.0-12.0); Neutrophils % (auto) 81.1 % (37.0-80.0); Red Blood Cells 4.27 10^6/uL (4.5-5.90); Red Cell Distribution Width 17.8 % (11.8-14.3)
[2022-09-28 17:50] LABS: Albumin 3.2 g/dL (3.4-5.0); BUN/Creatinine Ratio 26.3; Calcium 8.7 mg/dL (8.5-10.1); Magnesium 2.4 mg/dL (1.6-2.6); Potassium 4.1 mmol/L (3.5-5.1)
[2022-09-28 17:52] LABS: Bilirubin, Total 0.5 mg/dL (0.2-1.0); Total Protein 6.3 g/dL (6.4-8.2)
[2022-09-28] MEDS ORDERED: ALBUTEROL SULF 2.5 MG/0.5ML(0.5%) NEB SOLN NEB ONE ×2 (18:30→21:15)
[2022-09-28] MEDS ORDERED: IPRATROPIUM BROM 0.5 MG/2.5ML INH SOL NEB ONE ×2 (18:30→21:15)
[2022-09-28] MEDS ORDERED: LORazepam 0.5 MG TAB PO ONE (21:00)
[2022-09-28] MEDS ORDERED: DexAMETHasone SOD PHOS 10MG/1ML VIAL INJ IV ONE (21:15)
[2022-09-28] MEDS ORDERED: LACTATED RINGER'S 1,000 ML IV ONE (21:30)
[2022-09-28] MEDS: MAGNESIUM SULFATE 1GM/100ML 100 ML IV SCH ×2 (22:47→23:47)
[2022-09-28 23:00] VITALS: BP 80/50
[2022-09-28] MEDS ORDERED: ACETAMINOPHEN 325 MG TAB PO PRN (23:00)
[2022-09-28] MEDS ORDERED: DEXTROSE (50%) 50ML SYRG IV PRN (23:00)
[2022-09-28] MEDS ORDERED: ALBUTEROL SULF 2.5 MG/0.5ML(0.5%) NEB SOLN NEB PRN (23:00)
[2022-09-28] MEDS ORDERED: DOCUSATE SOD 100 MG CAP PO PRN (23:00)
[2022-09-28] MEDS ORDERED: IPRATROPIUM BROM 0.5 MG/2.5ML INH SOL NEB PRN (23:00)
[2022-09-28] MEDS ORDERED: LORazepam 2MG/ML-1ML VIAL IV PRN (23:00)
[2022-09-28] MEDS ORDERED: D5W/LACTATED RINGERS 1,000 ML IV SCH (23:00)
[2022-09-28] MEDS ORDERED: ONDANSETRON HCL 4 MG/2 ML VIAL IV PRN (23:00)
[2022-09-28] MEDS ORDERED: HYDROcodone-ACET 5/325MG TAB PO PRN (23:00)
[2022-09-28] MEDS ORDERED: NITROGLYCERIN 0.4 MG SL TAB SL PRN (23:45)
[2022-09-28] MEDS ORDERED: MORPHINE SULFATE INJ 2 MG/ml SYRG IV PRN (23:45)
[2022-09-29] MEDS ORDERED: InsuLIN REG 1unit/0.01ml Soln (100units/ml) SC SCH
[2022-09-29] MEDS ORDERED: ACCU-CHEK COMFORT CURVE STRIP VI SCH
[2022-09-29 06:30] LABS: Basophils # (auto) 0 10 ^3/uL (0-0.2); Eosinophils # (auto) 0 10 ^3/uL (0-0.8); Hemoglobin 11.6 g/dL (13.5-17.5); Lymphocytes # (auto) 0.5 10 ^3/uL (0.4-5.4); Monocytes # (auto) 0.1 10 ^3/uL (0-1.3)
[2022-09-29 06:34] LABS: Hematocrit 35.1 % (41.0-53.0); Mean Corpuscular Hemoglobin 25.8 pg (28.0-32.0); Mean Corpuscular Hgb Conc. 33.1 g/dL (32.0-36.0); Monocytes % (auto) 1.2 % (0.0-12.0); Neutrophils % (auto) 92.8 % (37.0-80.0); Nucleated Red Blood Cells % 0.1 %; Red Cell Distribution Width 17.9 % (11.8-14.3); White Blood Cell 7.6 10^3/uL (4.4-10.8)
[2022-09-29 07:11] LABS: Potassium 4.4 mmol/L (3.5-5.1)
[2022-09-29 07:31] LABS: Albumin 3.6 g/dL (3.4-5.0); Bilirubin, Total 0.6 mg/dL (0.2-1.0); Calcium 8.7 mg/dL (8.5-10.1); Total Protein 7.1 g/dL (6.4-8.2)
[2022-09-29] MEDS: ASPirin 81 mg TAB PO SCH (10:27)
[2022-09-29] MEDS: MULTIPLE VITAMIN TAB PO SCH (10:28)
[2022-09-29] MEDS: FAMOTIDINE (10MG/ML) 2ML VL IV SCH ×2 (10:28→22:38)
[2022-09-29 10:55] LABS: Urine Bacteria NONE SEEN /hpf (None Seen); Urine Blood Negative /uL (Negative); Urine Specific Gravity 1.012 (1.001-1.035); Urine WBC 2 /hpf (0 - 3)
[2022-09-29] MEDS: methylPREDNISolone SOD SUCC 40 MG/ML VL IV SCH ×2 (11:53→22:38)
[2022-09-30] MEDS: ASPirin 81 mg TAB PO SCH (11:34)
[2022-09-30] MEDS: methylPREDNISolone SOD SUCC 40 MG/ML VL IV SCH (11:34)
[2022-09-30] MEDS: FAMOTIDINE (10MG/ML) 2ML VL IV SCH (11:34)
[2022-09-30] MEDS: MULTIPLE VITAMIN TAB PO SCH (11:34)
[2022-09-30 13:40] VITALS: BP 153/87
== END 2022-09-30 13:40 | disposition home or self-care (01) | DRG 190 ==
LOC: EDBD 16:58 → ER 16:58 → TELE 23:34
PROVIDERS: ADMIT Nurse Practitioner Family; ATTEND Internal Medicine
DX: J44.1 Chronic obstructive pulmonary disease with (acute) exacerbation (principal); J96.91 Respiratory failure, unspecified with hypoxia; N17.9 Acute kidney failure, unspecified; E86.0 Dehydration; E88.09 Other disorders of plasma-protein metabolism, not elsewhere classified; I95.9 Hypotension, unspecified; D72.829 Elevated white blood cell count, unspecified; Z20.822 Contact with and (suspected) exposure to COVID-19; E78.5 Hyperlipidemia, unspecified; I10 Essential (primary) hypertension; I25.10 Atherosclerotic heart disease of native coronary artery without angina pectoris; I25.2 Old myocardial infarction; Z87.891 Personal history of nicotine dependence; Z88.0 Allergy status to penicillin; Z95.0 Presence of cardiac pacemaker; Z95.1 Presence of aortocoronary bypass graft
CPT/HCPCS: 36415; 71045; 71250; 80053; 81001; 83735; 83880; 84484; 85025; 85379; 87426; 94640; 96361; 96374; G0378; J1100; J3490

== ENCOUNTER 2022-10-02 12:40 | Inpatient (IN) | payer OTHER ==
[~2022-10-02] VITALS: Ht 167.6 cm; Wt 68.2 kg
[2022-10-02 13:48] LABS: Basophils # (auto) 0 10 ^3/uL (0-0.2); Eosinophils # (auto) 0.3 10 ^3/uL (0-0.8); Lymphocytes # (auto) 1.4 10 ^3/uL (0.4-5.4); Mean Corpuscular Volume 78.7 fL (80.0-100.0); Red Cell Distribution Width 18.2 % (11.8-14.3)
[2022-10-02 13:50] LABS: Eosinophils % (auto) 3.2 % (0.0-7.0); Hematocrit 39.2 % (41.0-53.0); Hemoglobin 12.6 g/dL (13.5-17.5); Lymphocytes % (auto) 14.5 % (10.0-50.0); Mean Corpuscular Hemoglobin 25.3 pg (28.0-32.0); Mean Corpuscular Hgb Conc. 32.2 g/dL (32.0-36.0); Monocytes % (auto) 10.8 % (0.0-12.0); Neutrophils # (auto) 6.9 10 ^3/uL (1.6-8.6); Neutrophils % (auto) 71.5 % (37.0-80.0); Nucleated Red Blood Cells % 0.1 %; Red Blood Cells 4.99 10^6/uL (4.5-5.90); White Blood Cell 9.7 10^3/uL (4.4-10.8)
[2022-10-02] MEDS ORDERED: IPRATROPIUM BROM 0.5 MG/2.5ML INH SOL NEB ONE (14:00)
[2022-10-02] MEDS ORDERED: methylPREDNISolone SOD SUCC 125 MG/2 ML VL IV ONE (14:00)
[2022-10-02] MEDS ORDERED: ALBUTEROL SULF 2.5 MG/0.5ML(0.5%) NEB SOLN NEB ONE (14:00)
[2022-10-02] MEDS ORDERED: levoFLOXacin 500MG 100 ML IV ONE (14:00)
[2022-10-02 14:22] LABS: Albumin 3.6 g/dL (3.4-5.0); Calcium 8.9 mg/dL (8.5-10.1)
[2022-10-02 14:29] LABS: BUN/Creatinine Ratio 21.7; Bilirubin, Total 0.5 mg/dL (0.2-1.0); Total Protein 6.9 g/dL (6.4-8.2)
[2022-10-02] MEDS ORDERED: IPRATROPIUM BROM 0.5 MG/2.5ML INH SOL NEB PRN (15:45)
[2022-10-02] MEDS ORDERED: CYCLOBENZAPRINE HCL 10 MG TAB PO PRN (15:45)
[2022-10-02] MEDS ORDERED: ONDANSETRON HCL 4 MG/2 ML VIAL IV PRN (15:45)
[2022-10-02] MEDS ORDERED: ALBUTEROL SULF 2.5 MG/0.5ML(0.5%) NEB SOLN NEB PRN (15:45)
[2022-10-02] MEDS ORDERED: ACETAMINOPHEN 325 MG TAB PO PRN (15:45)
[2022-10-02] MEDS ORDERED: NITROGLYCERIN 0.4 MG SL TAB SL PRN (15:45)
[2022-10-02] MEDS ORDERED: MORPHINE SULFATE INJ 2 MG/ml SYRG IV PRN (15:45)
[2022-10-02] MEDS ORDERED: HYDROcodone-ACET 5/325MG TAB PO PRN (15:45)
[2022-10-02] MEDS ORDERED: DOCUSATE SOD 100 MG CAP PO PRN (15:45)
[2022-10-02 16:04] VITALS: BP 117/78
[2022-10-02] MEDS ORDERED: PRED20TA2 PO (17:15)
[2022-10-02 18:13] VITALS: BP 116/82
[2022-10-02] MEDS ORDERED: SODIUM CHLOR 0.9% PF (SALINE LOCK) 10ML VIAL/SYR IV SCH (22:00)
[2022-10-02] MEDS ORDERED: SIMVASTATIN 5 MG PO SCH (22:00)
[2022-10-02] MEDS ORDERED: ISOSORBIDE DINITRATE 10 MG TAB PO SCH (22:00)
[2022-10-02] MEDS ORDERED: methylPREDNISolone SOD SUCC 40 MG/ML VL IV SCH (22:00)
[2022-10-03] MEDS ORDERED: TAMSULOSIN HYDROCHLORIDE 0.4 MG CAP PO SCH (10:00)
[2022-10-03] MEDS ORDERED: LISINOPRIL 10 MG TAB PO SCH (10:00)
[2022-10-03] MEDS ORDERED: ASPirin-EC 81 mg tab PO SCH (10:00)
[2022-10-03] MEDS ORDERED: PANTOPRAZOLE 40 MG/10 ML VIAL INJ IV SCH (10:00)
== END 2022-10-02 18:15 | disposition home or self-care (01) | DRG 192 ==
LOC: ER 12:40 → EDBD 12:40 → TELE 15:47
PROVIDERS: ADMIT Nurse Practitioner Family; ATTEND Nurse Practitioner Family
DX: J44.1 Chronic obstructive pulmonary disease with (acute) exacerbation (principal); Z20.822 Contact with and (suspected) exposure to COVID-19; E78.5 Hyperlipidemia, unspecified; I10 Essential (primary) hypertension; I25.10 Atherosclerotic heart disease of native coronary artery without angina pectoris; R09.02 Hypoxemia; Z88.0 Allergy status to penicillin; Z95.1 Presence of aortocoronary bypass graft; Z87.891 Personal history of nicotine dependence
CPT/HCPCS: 36415; 71046; 71275; 80053; 85025; 85379; 93005; 94640; 96365; 96375; G0378; J1956

== ENCOUNTER 2022-10-07 21:53 | Emergency (ER) | payer OTHER ==
[~2022-10-07] VITALS: Ht 170.2 cm; Wt 63.5 kg
[~2022-10-07 21:53] MED LIST changes: +PRED20TA2 PO
[2022-10-07 22:50] LABS: Basophils # (auto) 0 10 ^3/uL (0-0.2); Eosinophils # (auto) 0.2 10 ^3/uL (0-0.8); Lymphocytes # (auto) 1.6 10 ^3/uL (0.4-5.4); Lymphocytes % (auto) 12.1 % (10.0-50.0); Mean Corpuscular Hgb Conc. 31.5 g/dL (32.0-36.0)
[2022-10-07 22:51] LABS: Basophils % (auto) 0.4 % (0.0-2.0); Eosinophils % (auto) 1.5 % (0.0-7.0); Hematocrit 35.9 % (41.0-53.0); Hemoglobin 11.3 g/dL (13.5-17.5); Mean Corpuscular Hemoglobin 24.9 pg (28.0-32.0); Mean Corpuscular Volume 79.2 fL (80.0-100.0); Monocytes # (auto) 1.2 10 ^3/uL (0-1.3); Neutrophils # (auto) 10.3 10 ^3/uL (1.6-8.6); Nucleated Red Blood Cells % 0.1 %; Red Blood Cells 4.53 10^6/uL (4.5-5.90); Red Cell Distribution Width 19.5 % (11.8-14.3); White Blood Cell 13.4 10^3/uL (4.4-10.8)
[2022-10-07] MEDS ORDERED: DexAMETHasone SOD PHOS 10MG/1ML VIAL INJ IM ONE (23:00)
[2022-10-07] MEDS ORDERED: ALBUTEROL SULF 2.5 MG/0.5ML(0.5%) NEB SOLN NEB ONE (23:00)
[2022-10-07] MEDS ORDERED: IPRATROPIUM BROM 0.5 MG/2.5ML INH SOL NEB ONE (23:00)
[2022-10-07 23:06] LABS: INR 0.98 (0.9-1.15); Partial Thromboplastin Time 22.8 sec (24.6-33.4)
[2022-10-07 23:09] LABS: Albumin 3.4 g/dL (3.4-5.0); BUN/Creatinine Ratio 15.5; Calcium 8.8 mg/dL (8.5-10.1); Magnesium 2.3 mg/dL (1.6-2.6)
[2022-10-07 23:12] LABS: Bilirubin, Total 0.4 mg/dL (0.2-1.0); Total Protein 6.4 g/dL (6.4-8.2)
[2022-10-08 03:40] VITALS: BP 90/66
== END 2022-10-08 03:45 | disposition home or self-care (01) ==
LOC: ER 21:53 → EDBD 21:53 → ER 10-08 03:45
DX: J44.1 Chronic obstructive pulmonary disease with (acute) exacerbation (principal); R06.02 Shortness of breath; D72.829 Elevated white blood cell count, unspecified; R06.2 Wheezing; I25.10 Atherosclerotic heart disease of native coronary artery without angina pectoris; J44.9 Chronic obstructive pulmonary disease, unspecified; E78.5 Hyperlipidemia, unspecified; I10 Essential (primary) hypertension; Z98.890 Other specified postprocedural states; Z90.89 Acquired absence of other organs; Z77.22 Contact with and (suspected) exposure to environmental tobacco smoke (acute) (chronic)
CPT/HCPCS: 36415; 71045; 80053; 83735; 83880; 84484; 85025; 85610; 85730; 93005; 94640; 96372; 99285; J1100; J7644

== ENCOUNTER → 2022-10-09 | Outpatient (CLI) | payer OTHER ==
[~2022-10-09] MED LIST changes: +ALBUTEROL SULF 2.5 MG/0.5ML(0.5%) NEB SOLN ONE
== END | disposition home or self-care (01) ==
LOC: RT 14:44
PROVIDERS: ATTEND Internal Medicine Pulmonary Disease
DX: J44.9 Chronic obstructive pulmonary disease, unspecified (principal)
CPT/HCPCS: 94060

== ENCOUNTER 2022-10-11 08:41 | Emergency (ER) | payer OTHER ==
[~2022-10-11] VITALS: Ht 170.2 cm; Wt 54.5 kg
[~2022-10-11 08:41] MED LIST changes: -ALBUTEROL SULF 2.5 MG/0.5ML(0.5%) NEB SOLN ONE
[2022-10-11 08:46] VITALS: BP 132/76
[2022-10-11] MEDS ORDERED: IPRATROPIUM BROM 0.5 MG/2.5ML INH SOL NEB ONE (09:15)
[2022-10-11] MEDS ORDERED: methylPREDNISolone SOD SUCC 125 MG/2 ML VL IM ONE (09:15)
[2022-10-11] MEDS ORDERED: ALBUTEROL SULF 2.5 MG/0.5ML(0.5%) NEB SOLN NEB ONE (09:15)
[2022-10-11 09:30] LABS: Basophils # (auto) 0 10 ^3/uL (0-0.2); Eosinophils # (auto) 0.3 10 ^3/uL (0-0.8); Lymphocytes # (auto) 0.5 10 ^3/uL (0.4-5.4); Monocytes # (auto) 0.6 10 ^3/uL (0-1.3); Neutrophils # (auto) 6.7 10 ^3/uL (1.6-8.6); Red Cell Distribution Width 20.1 % (11.8-14.3); White Blood Cell 8.2 10^3/uL (4.4-10.8)
[2022-10-11 09:31] LABS: Basophils % (auto) 0.4 % (0.0-2.0); Eosinophils % (auto) 3.7 % (0.0-7.0); Hematocrit 35.2 % (41.0-53.0); Hemoglobin 11.5 g/dL (13.5-17.5); Lymphocytes % (auto) 6.6 % (10.0-50.0); Mean Corpuscular Hemoglobin 25.7 pg (28.0-32.0); Mean Corpuscular Hgb Conc. 32.5 g/dL (32.0-36.0); Mean Corpuscular Volume 78.9 fL (80.0-100.0); Monocytes % (auto) 7.8 % (0.0-12.0); Neutrophils % (auto) 81.5 % (37.0-80.0); Red Blood Cells 4.47 10^6/uL (4.5-5.90)
[2022-10-11 09:49] LABS: Albumin 3.2 g/dL (3.4-5.0); BUN/Creatinine Ratio 11.3; Calcium 8.3 mg/dL (8.5-10.1)
[2022-10-11 09:52] LABS: Bilirubin, Total 0.6 mg/dL (0.2-1.0); Total Protein 6.1 g/dL (6.4-8.2)
== END 2022-10-11 13:50 | disposition home or self-care (01) ==
LOC: ER 08:41 → EDBD 08:41 → ER 13:50
DX: J44.1 Chronic obstructive pulmonary disease with (acute) exacerbation (principal); I25.10 Atherosclerotic heart disease of native coronary artery without angina pectoris; E78.5 Hyperlipidemia, unspecified; I10 Essential (primary) hypertension; Z90.89 Acquired absence of other organs; Z87.891 Personal history of nicotine dependence; Z98.890 Other specified postprocedural states
CPT/HCPCS: 36415; 71045; 80053; 83880; 84484; 85025; 93005; 96372; 99285; J2930; J7644

== ENCOUNTER 2022-10-15 09:12 | Emergency (ER) | payer OTHER ==
[~2022-10-15] VITALS: Ht 160 cm; Wt 72.0 kg
[2022-10-15] MEDS ORDERED: IPRATROPIUM BROM 0.5 MG/2.5ML INH SOL NEB ONE (09:45)
[2022-10-15] MEDS ORDERED: LORazepam 0.5 MG TAB PO ONE (09:45)
[2022-10-15] MEDS ORDERED: methylPREDNISolone SOD SUCC 125 MG/2 ML VL IM ONE (09:45)
[2022-10-15] MEDS ORDERED: ALBUTEROL SULF 2.5 MG/0.5ML(0.5%) NEB SOLN NEB ONE (09:45)
[2022-10-15 10:00] VITALS: BP 135/77
== END 2022-10-15 10:47 | disposition home or self-care (01) ==
LOC: EDBD 09:12 → ER 09:12
DX: J44.1 Chronic obstructive pulmonary disease with (acute) exacerbation (principal); I25.10 Atherosclerotic heart disease of native coronary artery without angina pectoris; E78.5 Hyperlipidemia, unspecified; I10 Essential (primary) hypertension; Z90.89 Acquired absence of other organs; Z98.890 Other specified postprocedural states; Z87.891 Personal history of nicotine dependence
CPT/HCPCS: 94640; 96372; 99283; J2930; J7644; 93005

== ENCOUNTER → 2022-10-17 | Outpatient (CLI) | payer OTHER ==
[~2022-10-17] VITALS: Ht 154.9 cm; Wt 54.4 kg
[~2022-10-17] MED LIST changes: +ADENOSINE 46 MG in GIVE UN-DILUTED 0 ML IV ONE; +ADENOSINE 90 MG/30 ML INJ IV ONE; +ALBU108A5 IN; +CLOP75TA70 PO; +HYDR-3682 PO; +TICA90TA PO; +TIOT17SP IN
== END | disposition home or self-care (01) ==
LOC: Rad HDHVI 12:54
PROVIDERS: ATTEND Internal Medicine Cardiovascular Disease
DX: I11.0 Hypertensive heart disease with heart failure (principal); I50.43 Acute on chronic combined systolic (congestive) and diastolic (congestive) heart failure; I25.118 Atherosclerotic heart disease of native coronary artery with other forms of angina pectoris; R06.02 Shortness of breath; I25.2 Old myocardial infarction; J44.9 Chronic obstructive pulmonary disease, unspecified; E78.5 Hyperlipidemia, unspecified; Z95.0 Presence of cardiac pacemaker
CPT/HCPCS: 78452; 93005; 96374; 96375; A9500; J0153

== ENCOUNTER 2022-10-23 22:15 | Inpatient (IN) | payer OTHER ==
[~2022-10-23] VITALS: Ht 170.2 cm; Wt 55.8 kg
[2022-10-23 22:00] VITALS: BP 128/87
[~2022-10-23 22:15] MED LIST changes: -ADENOSINE 46 MG in GIVE UN-DILUTED 0 ML IV ONE; -ADENOSINE 90 MG/30 ML INJ IV ONE; -ALBU108A5 IN; -CLOP75TA70 PO; -HYDR-3682 PO; -TICA90TA PO; -TIOT17SP IN
[2022-10-24] VITALS (7 sets, daily range): BP systolic 109–155; BP diastolic 61–88
[2022-10-24] MEDS ORDERED: ACETAMINOPHEN 325 MG TAB PO PRN (02:45)
[2022-10-24] MEDS ORDERED: NITROGLYCERIN 0.4 MG SL TAB SL PRN (02:45)
[2022-10-24] MEDS ORDERED: MORPHINE SULFATE INJ 2 MG/ml SYRG IV PRN (02:45)
[2022-10-24] MEDS ORDERED: ONDANSETRON HCL 4 MG/2 ML VIAL IV PRN (02:45)
[2022-10-24 04:03] LABS: Basophils # (auto) 0 10 ^3/uL (0-0.2); Basophils % (auto) 0.1 % (0.0-2.0); Eosinophils # (auto) 0 10 ^3/uL (0-0.8); Hematocrit 30.5 % (41.0-53.0); Hemoglobin 10.1 g/dL (13.5-17.5); Lymphocytes # (auto) 0.4 10 ^3/uL (0.4-5.4); Lymphocytes % (auto) 6.5 % (10.0-50.0); Mean Corpuscular Hemoglobin 25.5 pg (28.0-32.0); Mean Corpuscular Hgb Conc. 33.2 g/dL (32.0-36.0); Monocytes # (auto) 0.2 10 ^3/uL (0-1.3); Monocytes % (auto) 2.9 % (0.0-12.0); Neutrophils % (auto) 90.5 % (37.0-80.0); Red Blood Cells 3.97 10^6/uL (4.5-5.90); Red Cell Distribution Width 19.7 % (11.8-14.3); White Blood Cell 6.6 10^3/uL (4.4-10.8)
[2022-10-24 04:25] LABS: Potassium 4.1 mmol/L (3.5-5.1)
[2022-10-24 04:33] LABS: Albumin 2.7 g/dL (3.4-5.0); BUN/Creatinine Ratio 21.9 (10.0-20.0); Bilirubin, Total 0.4 mg/dL (0.2-1.0); Calcium 8.5 mg/dL (8.5-10.1); Total Protein 5.5 g/dL (6.4-8.2)
[2022-10-24] MEDS ORDERED: CLOP75TA70 PO (06:35)
[2022-10-24] MEDS ORDERED: TICA90TA PO (06:35)
[2022-10-24] MEDS ORDERED: HYDR-3682 PO (06:35)
[2022-10-24] MEDS: IPRATROPIUM BROM 0.5 MG/2.5ML INH SOL NEB SCH ×2 (07:03→11:38)
[2022-10-24] MEDS: ALBUTEROL SULF 2.5 MG/0.5ML(0.5%) NEB SOLN NEB SCH ×2 (07:03→11:38)
[2022-10-24] MEDS ORDERED: CARVEDILOL 3.125 MG TAB PO SCH (10:00)
[2022-10-24] MEDS ORDERED: DIGOXIN 0.125 MG TAB PO SCH (10:00)
[2022-10-24] MEDS ORDERED: ENOXAPARIN SOD 40 MG/0.4 ML SYRINGE SC SCH (10:00)
[2022-10-24] MEDS ORDERED: predniSONE 20 MG TAB PO SCH (10:00)
[2022-10-24] MEDS ORDERED: CLOPIDOGREL BISULFATE 75 MG TAB PO SCH (10:00)
[2022-10-24] MEDS ORDERED: LISINOPRIL 10 MG TAB PO SCH (10:00)
[2022-10-24] MEDS ORDERED: PANTOPRAZOLE 40 MG TAB PO SCH (10:00)
[2022-10-24] MEDS ORDERED: ASPirin 81 mg TAB PO SCH (10:00)
[2022-10-24 10:21] LABS: Urine Bacteria NONE SEEN /hpf (None Seen); Urine Blood Negative /uL (Negative); Urine Mucus FEW (None Seen); Urine Specific Gravity 1.031 (1.001-1.035); Urine WBC 6 /hpf (0 - 3)
[2022-10-24] MEDS ORDERED: FUROSEMIDE 20 MG TAB PO ONE (10:30)
[2022-10-24] MEDS ORDERED: TAMSULOSIN HYDROCHLORIDE 0.4 MG CAP PO SCH (18:00)
[2022-10-24] MEDS ORDERED: ATORVASTATIN 20 MG TAB PO SCH (22:00)
[2022-10-25] MEDS ORDERED: FUROSEMIDE 20 MG TAB PO SCH (10:00)
== END 2022-10-24 17:35 | disposition home or self-care (01) | DRG 189 ==
LOC: WEST WING 10-24 → TELE-WESTW 10-24 03:38
PROVIDERS: ADMIT Registered Nurse; ATTEND Internal Medicine
DX: J96.21 Acute and chronic respiratory failure with hypoxia (principal); I50.22 Chronic systolic (congestive) heart failure; J44.1 Chronic obstructive pulmonary disease with (acute) exacerbation; E78.5 Hyperlipidemia, unspecified; I11.0 Hypertensive heart disease with heart failure; I25.10 Atherosclerotic heart disease of native coronary artery without angina pectoris; Z88.0 Allergy status to penicillin; I25.2 Old myocardial infarction; Z87.891 Personal history of nicotine dependence; Z95.1 Presence of aortocoronary bypass graft
CPT/HCPCS: 36415; 36600; 71045; 80053; 81001; 82805; 83880; 84484; 85025; 93970; 94640; G0378

== ENCOUNTER 2022-10-25 09:28 | Emergency (ER) | payer OTHER ==
[~2022-10-25] VITALS: Ht 154.9 cm; Wt 56.1 kg
[~2022-10-25 09:28] MED LIST changes: +CLOP75TA70 PO; +HYDR-3682 PO; +TICA90TA PO
[2022-10-25] MEDS ORDERED: IPRATROPIUM BROM 0.5 MG/2.5ML INH SOL NEB ONE (09:45)
[2022-10-25] MEDS ORDERED: ALBUTEROL SULF 2.5 MG/0.5ML(0.5%) NEB SOLN NEB ONE (09:45)
[2022-10-25] MEDS ORDERED: DexAMETHasone SOD PHOS 10MG/1ML VIAL INJ IV ONE (09:45)
[2022-10-25 10:33] LABS: Basophils # (auto) 0 10 ^3/uL (0-0.2); Basophils % (auto) 0.2 % (0.0-2.0); Eosinophils # (auto) 0.2 10 ^3/uL (0-0.8); Eosinophils % (auto) 1.4 % (0.0-7.0); Hemoglobin 10.4 g/dL (13.5-17.5); Lymphocytes # (auto) 1.4 10 ^3/uL (0.4-5.4); Mean Corpuscular Hemoglobin 24.7 pg (28.0-32.0); Mean Corpuscular Hgb Conc. 31.6 g/dL (32.0-36.0); Mean Corpuscular Volume 78.1 fL (80.0-100.0); Monocytes # (auto) 0.9 10 ^3/uL (0-1.3); Neutrophils # (auto) 10.2 10 ^3/uL (1.6-8.6); Neutrophils % (auto) 80.4 % (37.0-80.0); Nucleated Red Blood Cells % 0.1 %; Red Blood Cells 4.22 10^6/uL (4.5-5.90); Red Cell Distribution Width 19.8 % (11.8-14.3); White Blood Cell 12.7 10^3/uL (4.4-10.8)
[2022-10-25 10:54] LABS: Albumin 2.7 g/dL (3.4-5.0); Calcium 8.4 mg/dL (8.5-10.1); Magnesium 2.1 mg/dL (1.6-2.6); Potassium 3.7 mmol/L (3.5-5.1)
[2022-10-25 10:57] LABS: BUN/Creatinine Ratio 28.1 (10.0-20.0); Bilirubin, Total 0.4 mg/dL (0.2-1.0); Total Protein 6.2 g/dL (6.4-8.2)
[2022-10-25] MEDS: MAGNESIUM SULFATE 1GM/100ML 100 ML IV SCH ×2 (12:24→14:15)
[2022-10-25] MEDS ORDERED: MAGNESIUM SULFATE 1GM/100ML 100 ML IV SCH (14:15)
[2022-10-25 19:35] VITALS: BP 139/79
== END 2022-10-25 21:44 | disposition home or self-care (01) ==
LOC: ER 09:28
DX: J44.1 Chronic obstructive pulmonary disease with (acute) exacerbation (principal); I25.10 Atherosclerotic heart disease of native coronary artery without angina pectoris; E78.5 Hyperlipidemia, unspecified; I10 Essential (primary) hypertension; Z87.891 Personal history of nicotine dependence; Z90.89 Acquired absence of other organs
CPT/HCPCS: 36415; 36600; 71045; 80053; 82805; 83735; 83880; 84484; 85025; 93005; 94640; 96365; 96375; 99285; J1100; J3475; J7644

== ENCOUNTER 2022-10-30 05:13 | Emergency (ER) | payer OTHER ==
[~2022-10-30] VITALS: Ht 170.2 cm; Wt 57.8 kg
[2022-10-30 06:20] LABS: Hemoglobin 10.9 g/dL (13.5-17.5)
[2022-10-30 06:27] LABS: Hematocrit 32.5 % (41.0-53.0); Mean Corpuscular Hemoglobin 25.5 pg (28.0-32.0); Mean Corpuscular Hgb Conc. 33.6 g/dL (32.0-36.0); Mean Corpuscular Volume 75.8 fL (80.0-100.0); Red Blood Cells 4.28 10^6/uL (4.5-5.90); Red Cell Distribution Width 19.7 % (11.8-14.3); White Blood Cell 11.6 10^3/uL (4.4-10.8)
[2022-10-30] MEDS ORDERED: DexAMETHasone SOD PHOS 10MG/1ML VIAL INJ IM ONE (06:30)
[2022-10-30] MEDS ORDERED: IPRATROPIUM BROM 0.5 MG/2.5ML INH SOL NEB ONE (06:30)
[2022-10-30] MEDS ORDERED: ALBUTEROL SULF 2.5 MG/0.5ML(0.5%) NEB SOLN NEB ONE (06:30)
[2022-10-30 07:17] LABS: Basophils % (manual) 0 (0.0-2.0); Blast Cells 0; Myelocytes % 0; Reactive Lymphocytes 0
[2022-10-30 09:10] LABS: Band Neutrophils % (manual) 5; Eosinophils % (manual) 2 (0-7); Lymphocytes % (manual) 9 (10.0-50.0); Metamyelocytes % 2; Monocytes % (manual) 5 (0-12); Promyelocytes % 2
[2022-10-30] MEDS ORDERED: ALBU108A5 IN (09:19)
[2022-10-30] MEDS ORDERED: TIOT17SP IN (09:19)
[2022-10-30 09:30] VITALS: BP 118/68
== END 2022-10-30 09:52 | disposition home or self-care (01) ==
LOC: ER 05:13
DX: J44.9 Chronic obstructive pulmonary disease, unspecified (principal); I25.10 Atherosclerotic heart disease of native coronary artery without angina pectoris; E78.5 Hyperlipidemia, unspecified; I10 Essential (primary) hypertension; Z90.89 Acquired absence of other organs; Z98.890 Other specified postprocedural states; Z86.73 Personal history of transient ischemic attack (TIA), and cerebral infarction without residual deficits
CPT/HCPCS: 36415; 71045; 83880; 84484; 85007; 85027; 93005; 94640; 96372; 99285; J1100; J7644

== ENCOUNTER 2022-11-02 02:28 | Emergency (ER) | payer OTHER ==
[~2022-11-02] VITALS: Ht 170.2 cm; Wt 55.0 kg
[~2022-11-02 02:28] MED LIST changes: +ALBU108A5 IN; +TIOT17SP IN
[2022-11-02 03:08] LABS: Eosinophils % (auto) 2.8 % (0.0-7.0); Lymphocytes # (auto) 1.3 10 ^3/uL (0.4-5.4)
[2022-11-02 03:10] LABS: Basophils # (auto) 0 10 ^3/uL (0-0.2); Basophils % (auto) 0.5 % (0.0-2.0); Eosinophils # (auto) 0.3 10 ^3/uL (0-0.8); Hematocrit 34.3 % (41.0-53.0); Lymphocytes % (auto) 14.4 % (10.0-50.0); Mean Corpuscular Hemoglobin 24.8 pg (28.0-32.0); Mean Corpuscular Volume 77.3 fL (80.0-100.0); Monocytes % (auto) 10.7 % (0.0-12.0); Neutrophils # (auto) 6.5 10 ^3/uL (1.6-8.6); Neutrophils % (auto) 71.6 % (37.0-80.0); Red Blood Cells 4.44 10^6/uL (4.5-5.90); Red Cell Distribution Width 19.7 % (11.8-14.3)
[2022-11-02 03:45] LABS: Albumin 2.9 g/dL (3.4-5.0); BUN/Creatinine Ratio 12.9 (10.0-20.0); Calcium 8.7 mg/dL (8.5-10.1); Potassium 4.3 mmol/L (3.5-5.1)
[2022-11-02 03:48] LABS: Bilirubin, Total 0.5 mg/dL (0.2-1.0); Total Protein 6.2 g/dL (6.4-8.2)
[2022-11-02 09:00] VITALS: BP 139/73
== END 2022-11-02 09:21 | disposition home or self-care (01) ==
LOC: EDSEX 02:28 → ER 02:28 → EDBD 02:28 → ER 09:18
DX: R07.89 Other chest pain (principal); J44.1 Chronic obstructive pulmonary disease with (acute) exacerbation; I25.10 Atherosclerotic heart disease of native coronary artery without angina pectoris; E78.5 Hyperlipidemia, unspecified; I10 Essential (primary) hypertension; I25.2 Old myocardial infarction; Z87.891 Personal history of nicotine dependence; Z90.89 Acquired absence of other organs; Z98.890 Other specified postprocedural states
CPT/HCPCS: 36415; 70450; 71250; 72125; 80053; 84484; 85025; 93005

== ENCOUNTER 2022-11-02 14:48 | Emergency (ER) | payer OTHER ==
[~2022-11-02] VITALS: Ht 167.6 cm; Wt 61.3 kg
[2022-11-02] MEDS ORDERED: IPRATROPIUM BROM 0.5 MG/2.5ML INH SOL NEB ONE (15:15)
[2022-11-02] MEDS ORDERED: methylPREDNISolone SOD SUCC 125 MG/2 ML VL IM ONE (15:15)
[2022-11-02] MEDS ORDERED: ALBUTEROL SULF 2.5 MG/0.5ML(0.5%) NEB SOLN NEB ONE (15:15)
[2022-11-02 15:20] VITALS: BP 113/72
== END 2022-11-02 16:38 | disposition home or self-care (01) ==
LOC: EDBD 14:48 → ER 14:48
DX: J44.1 Chronic obstructive pulmonary disease with (acute) exacerbation (principal); I25.10 Atherosclerotic heart disease of native coronary artery without angina pectoris; E78.5 Hyperlipidemia, unspecified; I10 Essential (primary) hypertension; Z90.89 Acquired absence of other organs; Z98.890 Other specified postprocedural states; Z87.891 Personal history of nicotine dependence
CPT/HCPCS: 94640; 96372; 99283; J2930; J7644

== ENCOUNTER 2022-11-05 04:52 | Emergency (ER) | payer OTHER ==
[~2022-11-05] VITALS: Ht 167.6 cm; Wt 61.3 kg
[2022-11-05] MEDS ORDERED: IPRATROPIUM BROM 0.5 MG/2.5ML INH SOL NEB ONE (05:15)
[2022-11-05] MEDS ORDERED: ALBUTEROL SULF 2.5 MG/0.5ML(0.5%) NEB SOLN NEB ONE ×2 (05:15→06:45)
[2022-11-05 06:10] VITALS: BP 116/70
[2022-11-05 06:11] LABS: Basophils # (auto) 0 10 ^3/uL (0-0.2); Eosinophils # (auto) 0.2 10 ^3/uL (0-0.8); Hemoglobin 10.2 g/dL (13.5-17.5); Mean Corpuscular Volume 78.2 fL (80.0-100.0); Monocytes # (auto) 0.8 10 ^3/uL (0-1.3); Neutrophils # (auto) 4.7 10 ^3/uL (1.6-8.6); Nucleated Red Blood Cells % 0.1 %
[2022-11-05 06:14] LABS: Basophils % (auto) 0.7 % (0.0-2.0); Hematocrit 32.1 % (41.0-53.0); Lymphocytes % (auto) 15.2 % (10.0-50.0); Mean Corpuscular Hemoglobin 24.8 pg (28.0-32.0); Mean Corpuscular Hgb Conc. 31.7 g/dL (32.0-36.0); Monocytes % (auto) 12.2 % (0.0-12.0); Neutrophils % (auto) 68.9 % (37.0-80.0); Red Blood Cells 4.11 10^6/uL (4.5-5.90); Red Cell Distribution Width 19.1 % (11.8-14.3); White Blood Cell 6.9 10^3/uL (4.4-10.8)
[2022-11-05 06:30] LABS: Albumin 2.5 g/dL (3.4-5.0); Calcium 8.2 mg/dL (8.5-10.1); Potassium 3.7 mmol/L (3.5-5.1)
[2022-11-05] MEDS ORDERED: methylPREDNISolone SOD SUCC 125 MG/2 ML VL IM ONE (06:45)
[2022-11-05 07:17] LABS: BUN/Creatinine Ratio 18.3 (10.0-20.0); Bilirubin, Total 0.3 mg/dL (0.2-1.0); Total Protein 5.6 g/dL (6.4-8.2)
== END 2022-11-05 06:57 | disposition left against medical advice (07) ==
LOC: ER 04:52
DX: J44.1 Chronic obstructive pulmonary disease with (acute) exacerbation (principal); F41.9 Anxiety disorder, unspecified; I25.10 Atherosclerotic heart disease of native coronary artery without angina pectoris; E78.5 Hyperlipidemia, unspecified; I10 Essential (primary) hypertension; Z90.89 Acquired absence of other organs; Z98.890 Other specified postprocedural states; Z87.891 Personal history of nicotine dependence
CPT/HCPCS: 36415; 71045; 80053; 84484; 85025; 94640; 99285; J7644

== ENCOUNTER 2022-11-11 12:35 | Emergency (ER) | payer OTHER ==
[~2022-11-11] VITALS: Ht 170.2 cm; Wt 54.5 kg
[2022-11-11 13:49] LABS: Basophils # (auto) 0.1 10 ^3/uL (0-0.2); Basophils % (auto) 0.8 % (0.0-2.0); Eosinophils # (auto) 0.2 10 ^3/uL (0-0.8); Lymphocytes # (auto) 1.6 10 ^3/uL (0.4-5.4); Lymphocytes % (auto) 19.2 % (10.0-50.0); Neutrophils # (auto) 5.7 10 ^3/uL (1.6-8.6); Nucleated Red Blood Cells % 0.1 %
[2022-11-11 13:52] LABS: Eosinophils % (auto) 1.9 % (0.0-7.0); Hematocrit 34.4 % (41.0-53.0); Hemoglobin 11.1 g/dL (13.5-17.5); Mean Corpuscular Hemoglobin 24.7 pg (28.0-32.0); Mean Corpuscular Hgb Conc. 32.1 g/dL (32.0-36.0); Monocytes # (auto) 0.8 10 ^3/uL (0-1.3); Neutrophils % (auto) 68.1 % (37.0-80.0); Red Blood Cells 4.47 10^6/uL (4.5-5.90); Red Cell Distribution Width 18.8 % (11.8-14.3); White Blood Cell 8.3 10^3/uL (4.4-10.8)
[2022-11-11 13:57] LABS: Albumin 2.8 g/dL (3.4-5.0); Potassium 4.2 mmol/L (3.5-5.1)
[2022-11-11 14:00] LABS: BUN/Creatinine Ratio 10.5 (10.0-20.0)
[2022-11-11 14:01] LABS: Bilirubin, Total 0.4 mg/dL (0.2-1.0)
[2022-11-11] MEDS ORDERED: FURO20TA3 PO (17:14)
[2022-11-11] MEDS ORDERED: FUROSEMIDE 20 MG TAB PO ONE (17:15)
[2022-11-11 18:37] VITALS: BP 129/77
== END 2022-11-11 18:40 | disposition home or self-care (01) ==
LOC: ER 12:35
DX: R09.89 Other specified symptoms and signs involving the circulatory and respiratory systems (principal); R06.02 Shortness of breath; F41.9 Anxiety disorder, unspecified; I25.10 Atherosclerotic heart disease of native coronary artery without angina pectoris; J44.9 Chronic obstructive pulmonary disease, unspecified; E78.5 Hyperlipidemia, unspecified; I10 Essential (primary) hypertension; Z90.89 Acquired absence of other organs; Z87.891 Personal history of nicotine dependence; Z98.890 Other specified postprocedural states
CPT/HCPCS: 36415; 71046; 80053; 83880; 84484; 85025; 93005

== ENCOUNTER 2022-11-13 07:13 | Emergency (ER) | payer OTHER ==
[~2022-11-13] VITALS: Ht 170.2 cm; Wt 54.9 kg
[~2022-11-13 07:13] MED LIST changes: +FURO20TA3 PO
[2022-11-13 08:08] LABS: Basophils # (auto) 0.1 10 ^3/uL (0-0.2); Eosinophils # (auto) 0.3 10 ^3/uL (0-0.8); Neutrophils # (auto) 5.6 10 ^3/uL (1.6-8.6); Red Cell Distribution Width 19.6 % (11.8-14.3)
[2022-11-13 08:10] LABS: Eosinophils % (auto) 3.4 % (0.0-7.0); Hematocrit 34.7 % (41.0-53.0); Hemoglobin 11.2 g/dL (13.5-17.5); Lymphocytes # (auto) 1.5 10 ^3/uL (0.4-5.4); Mean Corpuscular Hemoglobin 24.6 pg (28.0-32.0); Mean Corpuscular Hgb Conc. 32.3 g/dL (32.0-36.0); Mean Corpuscular Volume 76.1 fL (80.0-100.0); Monocytes # (auto) 0.6 10 ^3/uL (0-1.3); Monocytes % (auto) 7.7 % (0.0-12.0); Neutrophils % (auto) 68.9 % (37.0-80.0); Nucleated Red Blood Cells % 0.1 %; Red Blood Cells 4.56 10^6/uL (4.5-5.90); White Blood Cell 8.1 10^3/uL (4.4-10.8)
[2022-11-13 08:27] LABS: Albumin 2.9 g/dL (3.4-5.0); Calcium 9.1 mg/dL (8.5-10.1); Potassium 4.2 mmol/L (3.5-5.1)
[2022-11-13 08:29] VITALS: BP 119/67
[2022-11-13 08:30] LABS: BUN/Creatinine Ratio 12.9 (10.0-20.0); Bilirubin, Total 0.5 mg/dL (0.2-1.0); Total Protein 6.6 g/dL (6.4-8.2)
[2022-11-13] MEDS ORDERED: DexAMETHasone 4 MG TAB PO ONE (08:45)
[2022-11-13] MEDS ORDERED: ALBUTEROL SULF 2.5 MG/0.5ML(0.5%) NEB SOLN NEB ONE (08:45)
[2022-11-13] MEDS ORDERED: IPRATROPIUM BROM 0.5 MG/2.5ML INH SOL NEB ONE (08:45)
[2022-11-13] MEDS ORDERED: DOXYCYCLINE 100 MG TAB/CAP PO ONE (09:15)
[2022-11-13] MEDS ORDERED: DOXY-346 PO (09:18)
== END 2022-11-13 09:44 | disposition home or self-care (01) ==
LOC: ER 07:13
DX: J44.1 Chronic obstructive pulmonary disease with (acute) exacerbation (principal); F41.9 Anxiety disorder, unspecified; I25.10 Atherosclerotic heart disease of native coronary artery without angina pectoris; E78.5 Hyperlipidemia, unspecified; I10 Essential (primary) hypertension; Z90.89 Acquired absence of other organs; Z98.890 Other specified postprocedural states; Z87.891 Personal history of nicotine dependence
CPT/HCPCS: 36415; 71046; 80053; 84484; 85025; 93005; 94640; 99285; J7644; J8540

== ENCOUNTER 2022-11-18 17:34 | Inpatient (IN) | payer OTHER ==
[~2022-11-18] VITALS: Ht 160 cm; Wt 55.0 kg
[~2022-11-18 17:34] MED LIST changes: +DOXY-346 PO
[2022-11-18 18:40] LABS: Basophils # (auto) 0.1 10 ^3/uL (0-0.2); Basophils % (auto) 0.7 % (0.0-2.0); Eosinophils # (auto) 0.4 10 ^3/uL (0-0.8); Eosinophils % (auto) 5.2 % (0.0-7.0); Hematocrit 32.3 % (41.0-53.0); Hemoglobin 10.3 g/dL (13.5-17.5); Lymphocytes # (auto) 2.1 10 ^3/uL (0.4-5.4); Lymphocytes % (auto) 27.6 % (10.0-50.0); Mean Corpuscular Hemoglobin 24.5 pg (28.0-32.0); Mean Corpuscular Hgb Conc. 31.8 g/dL (32.0-36.0); Monocytes % (auto) 13.2 % (0.0-12.0); Neutrophils % (auto) 53.3 % (37.0-80.0); Red Cell Distribution Width 18.9 % (11.8-14.3); White Blood Cell 7.4 10^3/uL (4.4-10.8)
[2022-11-18 20:14] LABS: Potassium 3.6 mmol/L (3.5-5.1)
[2022-11-18] MEDS ORDERED: OXYCODONE W/ ACETAMINOPHEN 5/325MG TABLET PO ONE (20:15)
[2022-11-18] MEDS ORDERED: DexAMETHasone SOD PHOS 10MG/1ML VIAL INJ IM ONE (20:15)
[2022-11-18] MEDS ORDERED: ONDANSETRON ODT 4 MG TAB PO ONE (20:15)
[2022-11-18 20:21] LABS: Albumin 2.8 g/dL (3.4-5.0); BUN/Creatinine Ratio 13.1 (10.0-20.0); Bilirubin, Total 0.4 mg/dL (0.2-1.0); Calcium 8.7 mg/dL (8.5-10.1); Total Protein 6.2 g/dL (6.4-8.2)
[2022-11-19] MEDS ORDERED: SODIUM CHLORIDE 0.9% 500 ML IV ONE (00:15)
[2022-11-19] MEDS ORDERED: HYDROmorphone HCL 2 MG/ML VL/or syr IV ONE ×2 (00:15→04:30)
[2022-11-19] MEDS ORDERED: ACETAMINOPHEN 325 MG TAB PO PRN (05:00)
[2022-11-19] MEDS ORDERED: MORPHINE SULFATE INJ 2 MG/ml SYRG IV PRN (05:00)
[2022-11-19] MEDS ORDERED: ONDANSETRON HCL 4 MG/2 ML VIAL IV PRN (05:00)
[2022-11-19] MEDS ORDERED: HYDROcodone-ACET 5/325MG TAB PO PRN (05:00)
[2022-11-19] MEDS ORDERED: CARVEDILOL 3.125 MG TAB PO SCH (10:00)
[2022-11-19] MEDS ORDERED: FUROSEMIDE 20 MG TAB PO SCH (10:00)
[2022-11-19] MEDS ORDERED: PANTOPRAZOLE 40 MG TAB PO SCH (10:00)
[2022-11-19] MEDS ORDERED: DIGOXIN 0.125 MG TAB PO SCH (10:00)
[2022-11-19] MEDS ORDERED: LISINOPRIL 10 MG TAB PO SCH (10:00)
[2022-11-19] MEDS ORDERED: ENOXAPARIN SOD 40 MG/0.4 ML SYRINGE SC SCH (10:00)
[2022-11-19] MEDS ORDERED: FURO20TA3 PO (11:09)
[2022-11-19] MEDS ORDERED: FURO1TAB31 PO (11:09)
[2022-11-19 11:11] VITALS: BP 140/83
[2022-11-19] MEDS: CLOPIDOGREL BISULFATE 75 MG TAB PO SCH ×2 (11:13→11:14)
[2022-11-19] MEDS ORDERED: TAMSULOSIN HYDROCHLORIDE 0.4 MG CAP PO SCH (18:00)
[2022-11-19] MEDS ORDERED: ATORVASTATIN 20 MG TAB PO SCH (22:00)
== END 2022-11-19 12:23 | disposition home or self-care (01) | DRG 556 ==
LOC: ER 17:34 → OVERFLOW 11-19 04:54
PROVIDERS: ADMIT Nurse Practitioner; ATTEND Internal Medicine Geriatric Medicine
DX: M25.551 Pain in right hip (principal); E44.0 Moderate protein-calorie malnutrition; J44.1 Chronic obstructive pulmonary disease with (acute) exacerbation; M48.56XA Collapsed vertebra, not elsewhere classified, lumbar region, initial encounter for fracture; J96.10 Chronic respiratory failure, unspecified whether with hypoxia or hypercapnia; I25.10 Atherosclerotic heart disease of native coronary artery without angina pectoris; F41.9 Anxiety disorder, unspecified; E78.5 Hyperlipidemia, unspecified; Z96.60 Presence of unspecified orthopedic joint implant; I11.0 Hypertensive heart disease with heart failure; I50.9 Heart failure, unspecified; Z88.0 Allergy status to penicillin; Z79.899 Other long term (current) drug therapy; Z95.1 Presence of aortocoronary bypass graft; Z68.21 Body mass index [BMI] 21.0-21.9, adult
CPT/HCPCS: 36415; 74176; 80053; 85025; 93971; 97163; G0378; J1100; Q0162

== ENCOUNTER → 2022-11-21 22:31 | Emergency (ER) | payer OTHER ==
[~2022-11-21 22:31] MED LIST changes: +FURO1TAB31 PO
== END | disposition left against medical advice (07) ==
LOC: ER 22:31
DX: R06.02 Shortness of breath (principal); Z53.21 Procedure and treatment not carried out due to patient leaving prior to being seen by health care provider

== ENCOUNTER 2022-12-15 11:57 | Emergency (ER) | payer OTHER ==
[~2022-12-15] VITALS: Ht 170.2 cm; Wt 55.8 kg
[2022-12-15] MEDS ORDERED: DexAMETHasone 4 MG TAB PO ONE (12:30)
[2022-12-15] MEDS ORDERED: IPRATROPIUM BROM 0.5 MG/2.5ML INH SOL NEB ONE (12:30)
[2022-12-15] MEDS ORDERED: ALBUTEROL SULF 2.5 MG/0.5ML(0.5%) NEB SOLN NEB ONE (12:30)
[2022-12-15] MEDS ORDERED: DOXYCYCLINE 100 MG TAB/CAP PO ONE (12:30)
[2022-12-15 13:16] LABS: Basophils # (auto) 0.1 10 ^3/uL (0-0.2); Eosinophils # (auto) 0.4 10 ^3/uL (0-0.8); Lymphocytes # (auto) 1.9 10 ^3/uL (0.4-5.4); Monocytes # (auto) 0.9 10 ^3/uL (0-1.3); Neutrophils # (auto) 4.2 10 ^3/uL (1.6-8.6)
[2022-12-15 13:18] LABS: Basophils % (auto) 1.2 % (0.0-2.0); Eosinophils % (auto) 5.6 % (0.0-7.0); Hematocrit 31.7 % (41.0-53.0); Hemoglobin 10.1 g/dL (13.5-17.5); Lymphocytes % (auto) 24.8 % (10.0-50.0); Mean Corpuscular Hemoglobin 24.5 pg (28.0-32.0); Mean Corpuscular Hgb Conc. 31.7 g/dL (32.0-36.0); Mean Corpuscular Volume 77.2 fL (80.0-100.0); Monocytes % (auto) 12.2 % (0.0-12.0); Neutrophils % (auto) 56.2 % (37.0-80.0); Red Blood Cells 4.11 10^6/uL (4.5-5.90); Red Cell Distribution Width 18.2 % (11.8-14.3); White Blood Cell 7.6 10^3/uL (4.4-10.8)
[2022-12-15 13:28] LABS: Albumin 3.3 g/dL (3.4-5.0); Calcium 8.2 mg/dL (8.5-10.1)
[2022-12-15 13:31] LABS: BUN/Creatinine Ratio 13.7 (10.0-20.0); Bilirubin, Total 0.3 mg/dL (0.2-1.0); Total Protein 6.2 g/dL (6.4-8.2)
[2022-12-15] MEDS ORDERED: DOXY-346 PO (14:30)
[2022-12-15 15:26] VITALS: BP 130/51
== END 2022-12-15 15:28 | disposition home or self-care (01) ==
LOC: ER 11:57
DX: J98.4 Other disorders of lung (principal); F41.9 Anxiety disorder, unspecified; I25.10 Atherosclerotic heart disease of native coronary artery without angina pectoris; J44.9 Chronic obstructive pulmonary disease, unspecified; E78.5 Hyperlipidemia, unspecified; I10 Essential (primary) hypertension; I25.2 Old myocardial infarction; I48.91 Unspecified atrial fibrillation; Z95.1 Presence of aortocoronary bypass graft; Z95.0 Presence of cardiac pacemaker; Z87.891 Personal history of nicotine dependence
CPT/HCPCS: 36415; 71045; 80053; 84484; 85025; 93005; 94640; 99285; J7644; J8540

== ENCOUNTER 2022-12-17 11:15 | Emergency (ER) | payer OTHER ==
[~2022-12-17] VITALS: Ht 165.1 cm; Wt 59.0 kg
[2022-12-17] MEDS ORDERED: IPRATROPIUM BROM 0.5 MG/2.5ML INH SOL NEB ONE (12:15)
[2022-12-17] MEDS ORDERED: methylPREDNISolone SOD SUCC 125 MG/2 ML VL IV ONE (12:15)
[2022-12-17] MEDS ORDERED: ALBUTEROL SULF 2.5 MG/0.5ML(0.5%) NEB SOLN NEB ONE (12:15)
[2022-12-17 13:33] LABS: Basophils # (auto) 0.1 10 ^3/uL (0-0.2); Basophils % (auto) 1.4 % (0.0-2.0); Eosinophils # (auto) 0.5 10 ^3/uL (0-0.8); Eosinophils % (auto) 7.3 % (0.0-7.0); Hematocrit 31.6 % (41.0-53.0); Hemoglobin 9.6 g/dL (13.5-17.5); Lymphocytes # (auto) 2.3 10 ^3/uL (0.4-5.4); Mean Corpuscular Hemoglobin 23.7 pg (28.0-32.0); Mean Corpuscular Hgb Conc. 30.4 g/dL (32.0-36.0); Monocytes # (auto) 0.9 10 ^3/uL (0-1.3); Monocytes % (auto) 13.2 % (0.0-12.0); Neutrophils % (auto) 44.1 % (37.0-80.0); Nucleated Red Blood Cells % 0.1 %; Red Blood Cells 4.06 10^6/uL (4.5-5.90); Red Cell Distribution Width 18.3 % (11.8-14.3); White Blood Cell 6.9 10^3/uL (4.4-10.8)
[2022-12-17 13:54] LABS: Calcium 8.4 mg/dL (8.5-10.1); Potassium 3.6 mmol/L (3.5-5.1)
[2022-12-17 14:00] LABS: Albumin 3.4 g/dL (3.4-5.0); BUN/Creatinine Ratio 18.3 (10.0-20.0); Bilirubin, Total 0.4 mg/dL (0.2-1.0); Total Protein 6.1 g/dL (6.4-8.2)
[2022-12-17] MEDS ORDERED: FUROSEMIDE 40 MG/4 ML VIAL IV ONE (16:00)
[2022-12-17 16:48] VITALS: BP 104/56
[2022-12-17] MEDS ORDERED: DexAMETHasone SOD PHOS 10MG/1ML VIAL INJ IV ONE (17:00)
== END 2022-12-17 17:01 | disposition home or self-care (01) ==
LOC: ER 11:15 → EDBD 11:15 → ER 17:01
DX: R06.02 Shortness of breath (principal); D64.9 Anemia, unspecified; J98.4 Other disorders of lung; I11.0 Hypertensive heart disease with heart failure; I50.9 Heart failure, unspecified; I25.10 Atherosclerotic heart disease of native coronary artery without angina pectoris; I25.2 Old myocardial infarction; E78.5 Hyperlipidemia, unspecified; Z95.1 Presence of aortocoronary bypass graft; Z95.0 Presence of cardiac pacemaker; Z90.89 Acquired absence of other organs; Z87.891 Personal history of nicotine dependence
CPT/HCPCS: 36415; 71045; 80053; 83880; 84484; 85025; 93005; 94640; 96374; 96375; 99285; J1100; J1940; J7644

== ENCOUNTER 2022-12-26 17:03 | Inpatient (IN) | payer OTHER ==
[~2022-12-26] VITALS: Ht 170.2 cm; Wt 54.0 kg
[~2022-12-26 17:03] MED LIST changes: -LISI-716 PO; +LISI10TA34 PO; +LORA-1123 PO; -LORA1TAB23 PO; +SIMV10TA20 PO; -SIMV10TA84 PO
[2022-12-26 18:22] VITALS: BP 127/63
[2022-12-26] MEDS ORDERED: NITROGLYCERIN 0.4 MG SL TAB SL PRN ×2 (20:15)
[2022-12-26] MEDS ORDERED: ALBUTEROL SULF HFA 90MCG INH 200DOSE IN PRN (20:15)
[2022-12-26] MEDS ORDERED: CYCLOBENZAPRINE HCL 10 MG TAB PO PRN (20:15)
[2022-12-26] MEDS ORDERED: MORPHINE SULFATE INJ 2 MG/ml SYRG IV PRN ×2 (20:15)
[2022-12-26] MEDS: HYDROcodone-ACET 5/325MG TAB PO PRN (20:18)
[2022-12-26] MEDS ORDERED: ALBUTEROL SULF 2.5 MG/0.5ML(0.5%) NEB SOLN NEB PRN (20:30)
[2022-12-26] MEDS: LORazepam 0.5 MG TAB PO PRN (21:05)
[2022-12-26 22:00] VITALS: BP_SYST 126; BP_SYST 137; BP_DIAS 58; BP_DIAS 68
[2022-12-26] MEDS ORDERED: PRAVASTATIN SODIUM 20 MG TAB PO SCH (22:00)
[2022-12-26] MEDS: SODIUM CHLOR 0.9% PF (SALINE LOCK) 10ML VIAL/SYR IV SCH (22:00)
[2022-12-26] MEDS: hydrOXYzine 25 MG TAB or CAP PO PRN (22:30)
[2022-12-27] VITALS (8 sets, daily range): BP systolic 99–116; BP diastolic 50–76
[2022-12-27 05:23] LABS: Basophils # (auto) 0 10 ^3/uL (0-0.2); Eosinophils # (auto) 0 10 ^3/uL (0-0.8); Eosinophils % (auto) 0.1 % (0.0-7.0); Hemoglobin 8.9 g/dL (13.5-17.5); Lymphocytes # (auto) 2.2 10 ^3/uL (0.4-5.4); Monocytes # (auto) 1.4 10 ^3/uL (0-1.3); Monocytes % (auto) 11.9 % (0.0-12.0); Neutrophils % (auto) 69.1 % (37.0-80.0); White Blood Cell 11.6 10^3/uL (4.4-10.8)
[2022-12-27 05:25] LABS: Basophils % (auto) 0.1 % (0.0-2.0); Hematocrit 27.8 % (41.0-53.0); Lymphocytes % (auto) 18.8 % (10.0-50.0); Mean Corpuscular Hemoglobin 24.6 pg (28.0-32.0); Mean Corpuscular Hgb Conc. 32.1 g/dL (32.0-36.0); Mean Corpuscular Volume 76.6 fL (80.0-100.0); Neutrophils # (auto) 8.1 10 ^3/uL (1.6-8.6); Nucleated Red Blood Cells % 0.1 %; Red Blood Cells 3.63 10^6/uL (4.5-5.90); Red Cell Distribution Width 18.2 % (11.8-14.3)
[2022-12-27 05:37] LABS: BUN/Creatinine Ratio 27.8 (10.0-20.0); Calcium 8.9 mg/dL (8.5-10.1); Potassium 4.2 mmol/L (3.5-5.1)
[2022-12-27 05:40] LABS: INR 1.02 (0.9-1.15); Partial Thromboplastin Time 24.2 sec (24.6-33.4)
[2022-12-27] MEDS: SODIUM CHLOR 0.9% PF (SALINE LOCK) 10ML VIAL/SYR IV SCH ×3 (06:01→22:00)
[2022-12-27] MEDS: CARVEDILOL 12.5 MG TAB PO SCH (06:01)
[2022-12-27] MEDS: ASPirin-EC 81 mg tab PO SCH (08:19)
[2022-12-27] MEDS: CLOPIDOGREL BISULFATE 75 MG TAB PO SCH (08:19)
[2022-12-27] MEDS: MULTIPLE VITAMINS W/ MINERALS TAB PO SCH (09:15)
[2022-12-27] MEDS: LISINOPRIL 10 MG TAB PO SCH (09:16)
[2022-12-27] MEDS: PANTOPRAZOLE 40 MG TAB PO SCH (09:16)
[2022-12-27] MEDS: PANCREATIC ENZYMES 4200 UNIT CAP PO SCH ×2 (12:00→18:00)
[2022-12-27] MEDS ORDERED: IOHEXOL 350 MG/ML 500ML BOTTLE IJ ONE (16:50)
[2022-12-27] MEDS ORDERED: LIDOCAINE 2%HCL (LOCAL ANESTH.) INJ 20ML MDV ONE (16:50)
[2022-12-27] MEDS ORDERED: VERAPAMIL 2.5MG/ML INJ 2ML VIAL IV ONE (16:54)
[2022-12-27] MEDS ORDERED: HEPARIN SODIUM (PORCINE) 5000 UNITS/ML 1ML VIAL ONE (16:54)
[2022-12-27] MEDS ORDERED: ANGIOMAX 250 MG VIAL IV ONE (16:54)
[2022-12-27] MEDS ORDERED: MIDAZOLAM HCL 2MG/2ML 2ml VIAL (1mg/ml) ONE (16:55)
[2022-12-27] MEDS ORDERED: fentaNYL CITRATE 100 MCG/2 ML VL ONE (16:55)
[2022-12-27] MEDS ORDERED: SODIUM CHL 0.9% 50 ML ONE (16:55)
[2022-12-27] MEDS ORDERED: ASPirin 81 mg TAB ONE (17:27)
[2022-12-27] MEDS ORDERED: CLOPIDOGREL 300 MG TAB ONE (17:27)
[2022-12-27] MEDS: TAMSULOSIN HYDROCHLORIDE 0.4 MG CAP PO SCH (18:00)
[2022-12-27 20:12] LABS: Urine Bacteria NONE SEEN /hpf (None Seen); Urine Blood Negative /uL (Negative); Urine Specific Gravity 1.038 (1.001-1.035); Urine WBC 10 /hpf (0 - 3)
[2022-12-27] MEDS: HYDROcodone-ACET 5/325MG TAB PO PRN (20:20)
[2022-12-27] MEDS: PRAVASTATIN SODIUM 20 MG TAB PO SCH (22:06)
[2022-12-27] MEDS: hydrOXYzine 25 MG TAB or CAP PO PRN (22:06)
[2022-12-28] VITALS (10 sets, daily range): BP systolic 80–103; BP diastolic 53–70
[2022-12-28 05:17] LABS: Basophils # (auto) 0 10 ^3/uL (0-0.2); Basophils % (auto) 0.1 % (0.0-2.0); Eosinophils # (auto) 0.2 10 ^3/uL (0-0.8); Eosinophils % (auto) 1.4 % (0.0-7.0); Hematocrit 30.6 % (41.0-53.0); Monocytes # (auto) 1.3 10 ^3/uL (0-1.3); Neutrophils # (auto) 9.3 10 ^3/uL (1.6-8.6); Red Blood Cells 3.96 10^6/uL (4.5-5.90); White Blood Cell 13.5 10^3/uL (4.4-10.8)
[2022-12-28] MEDS: SODIUM CHLOR 0.9% PF (SALINE LOCK) 10ML VIAL/SYR IV SCH ×3 (05:22→22:12)
[2022-12-28 05:32] LABS: Hemoglobin 9.6 g/dL (13.5-17.5); Lymphocytes # (auto) 2.7 10 ^3/uL (0.4-5.4); Lymphocytes % (auto) 19.9 % (10.0-50.0); Mean Corpuscular Hemoglobin 24.2 pg (28.0-32.0); Mean Corpuscular Hgb Conc. 31.3 g/dL (32.0-36.0); Mean Corpuscular Volume 77.2 fL (80.0-100.0); Monocytes % (auto) 9.6 % (0.0-12.0); Red Cell Distribution Width 18.2 % (11.8-14.3)
[2022-12-28 05:36] LABS: Potassium 4.6 mmol/L (3.5-5.1)
[2022-12-28 05:45] LABS: BUN/Creatinine Ratio 27.3 (10.0-20.0); Bilirubin, Total 0.4 mg/dL (0.2-1.0); Calcium 8.2 mg/dL (8.5-10.1); Total Protein 5.8 g/dL (6.4-8.2)
[2022-12-28] MEDS: CARVEDILOL 12.5 MG TAB PO SCH (06:15)
[2022-12-28] MEDS: PANCREATIC ENZYMES 4200 UNIT CAP PO SCH ×3 (08:14→18:14)
[2022-12-28] MEDS: CLOPIDOGREL BISULFATE 75 MG TAB PO SCH (08:15)
[2022-12-28] MEDS: MULTIPLE VITAMINS W/ MINERALS TAB PO SCH (08:15)
[2022-12-28] MEDS: ASPirin-EC 81 mg tab PO SCH (08:15)
[2022-12-28] MEDS: PANTOPRAZOLE 40 MG TAB PO SCH (08:15)
[2022-12-28] MEDS: hydrOXYzine 25 MG TAB or CAP PO PRN (09:56)
[2022-12-28] MEDS: LISINOPRIL 10 MG TAB PO SCH (10:00)
[2022-12-28] MEDS ORDERED: FUROSEMIDE 20 MG TAB PO SCH (10:00)
[2022-12-28] MEDS ORDERED: NITROFURANTOIN 100 mg CAP PO ONE (14:00)
[2022-12-28] MEDS ORDERED: CIPROFLOXACIN HYDROCHLORIDE 250 MG TAB PO ONE (14:15)
[2022-12-28] MEDS: LORazepam 0.5 MG TAB PO PRN (16:29)
[2022-12-28] MEDS ORDERED: cefTRIAXone 1GM/50ML D5W 50 ML IV ONE (17:45)
[2022-12-28] MEDS: TAMSULOSIN HYDROCHLORIDE 0.4 MG CAP PO SCH (18:14)
[2022-12-28] MEDS: HYDROcodone-ACET 5/325MG TAB PO PRN (20:37)
[2022-12-28] MEDS: ALBUTEROL SULF 2.5 MG/0.5ML(0.5%) NEB SOLN NEB SCH (21:38)
[2022-12-28 21:43] LABS: Basophils # (auto) 0 10 ^3/uL (0-0.2); Basophils % (auto) 0.1 % (0.0-2.0); Eosinophils # (auto) 0.2 10 ^3/uL (0-0.8); Hemoglobin 9.2 g/dL (13.5-17.5); Mean Corpuscular Volume 76.8 fL (80.0-100.0); Monocytes # (auto) 1.4 10 ^3/uL (0-1.3); Monocytes % (auto) 10.1 % (0.0-12.0)
[2022-12-28 21:45] LABS: Eosinophils % (auto) 1.2 % (0.0-7.0); Hematocrit 30.2 % (41.0-53.0); Lymphocytes # (auto) 1.6 10 ^3/uL (0.4-5.4); Lymphocytes % (auto) 11.6 % (10.0-50.0); Mean Corpuscular Hemoglobin 23.4 pg (28.0-32.0); Mean Corpuscular Hgb Conc. 30.4 g/dL (32.0-36.0); Neutrophils # (auto) 10.9 10 ^3/uL (1.6-8.6); Red Blood Cells 3.93 10^6/uL (4.5-5.90); White Blood Cell 14.1 10^3/uL (4.4-10.8)
[2022-12-28] MEDS ORDERED: NITROFURANTOIN 100 mg CAP PO SCH (22:00)
[2022-12-28 22:02] LABS: Albumin 2.8 g/dL (3.4-5.0); Calcium 7.9 mg/dL (8.5-10.1); Potassium 4.2 mmol/L (3.5-5.1)
[2022-12-28 22:05] LABS: BUN/Creatinine Ratio 23.8 (10.0-20.0); Bilirubin, Total 0.2 mg/dL (0.2-1.0); Total Protein 5.7 g/dL (6.4-8.2)
[2022-12-28] MEDS: PRAVASTATIN SODIUM 20 MG TAB PO SCH (22:12)
[2022-12-28] MEDS ORDERED: SODIUM CHLORIDE 0.9% 1,000 ML IV SCH ×2 (23:00)
[2022-12-28] MEDS ORDERED: SODIUM CHLORIDE 0.9% 250 ML IV ONE (23:00)
[2022-12-29] MEDS: ALBUTEROL SULF 2.5 MG/0.5ML(0.5%) NEB SOLN NEB SCH ×6 (02:00→23:22)
[2022-12-29] MEDS ORDERED: CIPROFLOXACIN HYDROCHLORIDE 250 MG TAB PO SCH (02:00)
[2022-12-29 05:00] VITALS: BP 96/63
[2022-12-29 05:12] LABS: Albumin 2.7 g/dL (3.4-5.0); BUN/Creatinine Ratio 21.4 (10.0-20.0); Calcium 8.2 mg/dL (8.5-10.1); Potassium 4.1 mmol/L (3.5-5.1)
[2022-12-29 05:14] LABS: Bilirubin, Total 0.4 mg/dL (0.2-1.0); Total Protein 5.5 g/dL (6.4-8.2)
[2022-12-29 05:33] LABS: Basophils # (auto) 0 10 ^3/uL (0-0.2); Basophils % (auto) 0.1 % (0.0-2.0); Eosinophils # (auto) 0.2 10 ^3/uL (0-0.8)
[2022-12-29 05:37] LABS: Eosinophils % (auto) 1.5 % (0.0-7.0); Hemoglobin 9.4 g/dL (13.5-17.5); Lymphocytes # (auto) 2.4 10 ^3/uL (0.4-5.4); Lymphocytes % (auto) 18.2 % (10.0-50.0); Mean Corpuscular Hemoglobin 24.2 pg (28.0-32.0); Mean Corpuscular Hgb Conc. 31.4 g/dL (32.0-36.0); Monocytes % (auto) 7.7 % (0.0-12.0); Neutrophils # (auto) 9.5 10 ^3/uL (1.6-8.6); Neutrophils % (auto) 72.5 % (37.0-80.0); Red Cell Distribution Width 17.7 % (11.8-14.3)
[2022-12-29] MEDS: SODIUM CHLOR 0.9% PF (SALINE LOCK) 10ML VIAL/SYR IV SCH ×3 (06:00→21:55)
[2022-12-29] MEDS: CARVEDILOL 12.5 MG TAB PO SCH (06:08)
[2022-12-29] MEDS: PANCREATIC ENZYMES 4200 UNIT CAP PO SCH ×3 (08:06→17:37)
[2022-12-29] MEDS: MULTIPLE VITAMINS W/ MINERALS TAB PO SCH (08:06)
[2022-12-29] MEDS: ASPirin-EC 81 mg tab PO SCH (08:06)
[2022-12-29] MEDS: PANTOPRAZOLE 40 MG TAB PO SCH (08:07)
[2022-12-29] MEDS: CLOPIDOGREL BISULFATE 75 MG TAB PO SCH (08:07)
[2022-12-29 08:30] VITALS: BP 100/63
[2022-12-29 08:57] VITALS: BP 100/63
[2022-12-29] MEDS: cefTRIAXone 1GM/50ML D5W 50 ML IV SCH (09:28)
[2022-12-29] MEDS: LORazepam 0.5 MG TAB PO PRN (09:28)
[2022-12-29] MEDS: LISINOPRIL 10 MG TAB PO SCH (10:00)
[2022-12-29 13:00] VITALS: BP 99/58
[2022-12-29] MEDS ORDERED: SODIUM CHLORIDE 0.9% 1,000 ML IV ONE (13:15)
[2022-12-29 16:40] VITALS: BP 131/65
[2022-12-29] MEDS: TAMSULOSIN HYDROCHLORIDE 0.4 MG CAP PO SCH (17:37)
[2022-12-29] MEDS: HYDROcodone-ACET 5/325MG TAB PO PRN (21:55)
[2022-12-29] MEDS: PRAVASTATIN SODIUM 20 MG TAB PO SCH (21:55)
[2022-12-29 22:00] VITALS: BP 113/72
[2022-12-30] MEDS ORDERED: CLOP75TA28 PO (00:13)
[2022-12-30] MEDS ORDERED: ATOR80TA PO ×2 (00:16)
[2022-12-30] MEDS ORDERED: METO25TA5 PO (00:17)
[2022-12-30] MEDS: ALBUTEROL SULF 2.5 MG/0.5ML(0.5%) NEB SOLN NEB SCH ×4 (02:00→14:48)
[2022-12-30 05:00] VITALS: BP 116/65
[2022-12-30] MEDS: SODIUM CHLOR 0.9% PF (SALINE LOCK) 10ML VIAL/SYR IV SCH ×2 (06:05→14:00)
[2022-12-30] MEDS: CARVEDILOL 12.5 MG TAB PO SCH (06:06)
[2022-12-30 06:14] LABS: BUN/Creatinine Ratio 15.3 (10.0-20.0); Calcium 7.6 mg/dL (8.5-10.1); Potassium 4.2 mmol/L (3.5-5.1)
[2022-12-30] MEDS: ASPirin-EC 81 mg tab PO SCH (08:34)
[2022-12-30] MEDS: PANTOPRAZOLE 40 MG TAB PO SCH (08:34)
[2022-12-30] MEDS: MULTIPLE VITAMINS W/ MINERALS TAB PO SCH (08:34)
[2022-12-30] MEDS: cefTRIAXone 1GM/50ML D5W 50 ML IV SCH (08:34)
[2022-12-30] MEDS: CLOPIDOGREL BISULFATE 75 MG TAB PO SCH (08:34)
[2022-12-30] MEDS: PANCREATIC ENZYMES 4200 UNIT CAP PO SCH ×2 (08:34→12:19)
[2022-12-30] MEDS: LISINOPRIL 10 MG TAB PO SCH (08:39)
[2022-12-30 09:00] VITALS: BP 131/68
[2022-12-30 10:36] VITALS: BP 131/68
[2022-12-30 12:53] VITALS: BP 114/75
[2022-12-30 13:00] VITALS: BP 107/60
[2022-12-30] MEDS: LORazepam 0.5 MG TAB PO PRN (14:31)
[2023-01-03] MEDS ORDERED: SERT25TA28 PO (01:34)
== END 2022-12-30 16:15 | disposition home or self-care (01) | DRG 246 ==
LOC: TELE-EAST 17:43
PROVIDERS: ADMIT Student in an Organized Health Care Education/Training Program; ATTEND Internal Medicine
PROC: 027035Z Dilation of Coronary Artery, One Artery with Two Drug-eluting Intraluminal Devices, Percutaneous Approach (ICD-10-PCS; principal; 2022-12-27)
DX: I25.10 Atherosclerotic heart disease of native coronary artery without angina pectoris (principal); N17.0 Acute kidney failure with tubular necrosis; I50.22 Chronic systolic (congestive) heart failure; J96.10 Chronic respiratory failure, unspecified whether with hypoxia or hypercapnia; R64 Cachexia; Z68.1 Body mass index [BMI] 19.9 or less, adult; K86.81 Exocrine pancreatic insufficiency; D64.9 Anemia, unspecified; E78.5 Hyperlipidemia, unspecified; I11.0 Hypertensive heart disease with heart failure; J44.9 Chronic obstructive pulmonary disease, unspecified; K86.89 Other specified diseases of pancreas; N40.0 Benign prostatic hyperplasia without lower urinary tract symptoms; Z88.0 Allergy status to penicillin; Z81.1 Family history of alcohol abuse and dependence; Z81.8 Family history of other mental and behavioral disorders
CPT/HCPCS: 36415; 71045; 76937; 80048; 80053; 81001; 83880; 85025; 85610; 85730; 87081; 87086; 92928; 93005; 94640; 99152; C1887; G0378; J0696; J2250

== ENCOUNTER 2023-01-02 01:10 | Inpatient (IN) | payer OTHER ==
[~2023-01-02] VITALS: Ht 170.2 cm; Wt 53.6 kg
[~2023-01-02 01:10] MED LIST changes: +ATOR80TA PO; +CLOP75TA28 PO; +METO25TA5 PO; -SIMV10TA20 PO; -TICA90TA PO
[2023-01-02] MEDS ORDERED: IPRATROPIUM BROM 0.5 MG/2.5ML INH SOL NEB ONE (01:30)
[2023-01-02] MEDS ORDERED: methylPREDNISolone SOD SUCC 125 MG/2 ML VL IV ONE (01:30)
[2023-01-02] MEDS ORDERED: TERBUTALINE SULFATE 1 MG/ML 1ML VIAL SC ONE (01:30)
[2023-01-02] MEDS ORDERED: ALBUTEROL SULF 2.5 MG/0.5ML(0.5%) NEB SOLN NEB ONE (01:30)
[2023-01-02 02:22] LABS: BUN/Creatinine Ratio 10.9 (10.0-20.0); Calcium 8.6 mg/dL (8.5-10.1); Potassium 3.7 mmol/L (3.5-5.1)
[2023-01-02 02:25] LABS: Bilirubin, Total 0.4 mg/dL (0.2-1.0); Total Protein 6.4 g/dL (6.4-8.2)
[2023-01-02 02:41] LABS: Eosinophils # (auto) 0.2 10 ^3/uL (0-0.8); Mean Corpuscular Volume 77.2 fL (80.0-100.0); Neutrophils # (auto) 4.1 10 ^3/uL (1.6-8.6); Red Cell Distribution Width 18.7 % (11.8-14.3)
[2023-01-02 02:43] LABS: Basophils # (auto) 0.1 10 ^3/uL (0-0.2); Basophils % (auto) 0.7 % (0.0-2.0); Hematocrit 27.3 % (41.0-53.0); Hemoglobin 8.8 g/dL (13.5-17.5); Lymphocytes # (auto) 1.9 10 ^3/uL (0.4-5.4); Lymphocytes % (auto) 26.2 % (10.0-50.0); Mean Corpuscular Hgb Conc. 32.4 g/dL (32.0-36.0); Monocytes # (auto) 1.1 10 ^3/uL (0-1.3); Monocytes % (auto) 14.6 % (0.0-12.0); Neutrophils % (auto) 55.5 % (37.0-80.0); Red Blood Cells 3.53 10^6/uL (4.5-5.90); White Blood Cell 7.3 10^3/uL (4.4-10.8)
[2023-01-02] MEDS ORDERED: SODIUM CHLORIDE 0.9% 500 ML IV ONE (03:30)
[2023-01-02] MEDS ORDERED: ACETAMINOPHEN 325 MG TAB PO PRN (04:00)
[2023-01-02] MEDS ORDERED: NITROGLYCERIN 0.4 MG SL TAB SL PRN (04:00)
[2023-01-02] MEDS ORDERED: MORPHINE SULFATE INJ 2 MG/ml SYRG IV PRN (04:00)
[2023-01-02] MEDS ORDERED: IPRATROPIUM BROM 0.5 MG/2.5ML INH SOL NEB PRN (04:00)
[2023-01-02] MEDS ORDERED: ALBUTEROL SULF 2.5 MG/0.5ML(0.5%) NEB SOLN NEB PRN (04:00)
[2023-01-02] MEDS ORDERED: ONDANSETRON HCL 4 MG/2 ML VIAL IV PRN (04:00)
[2023-01-02 04:06] VITALS: BP 100/52
[2023-01-02] MEDS: CARVEDILOL 3.125 MG TAB PO SCH ×2 (10:00→23:29)
[2023-01-02] MEDS ORDERED: ENOXAPARIN SOD 40 MG/0.4 ML SYRINGE SC SCH (10:00)
[2023-01-02] MEDS: methylPREDNISolone SOD SUCC 40 MG/ML VL IV SCH ×2 (10:54→23:28)
[2023-01-02] MEDS: ASPirin 81 mg TAB PO SCH (10:55)
[2023-01-02] MEDS: DIGOXIN 0.125 MG TAB PO SCH (10:55)
[2023-01-02] MEDS: FUROSEMIDE 40 MG TAB PO SCH (10:55)
[2023-01-02] MEDS: CLOPIDOGREL BISULFATE 75 MG TAB PO SCH (10:56)
[2023-01-02] MEDS: PANTOPRAZOLE 40 MG TAB PO SCH (10:56)
[2023-01-02] MEDS ORDERED: AZITHROMYCIN 250 MG TAB PO ONE (14:45)
[2023-01-02] MEDS ORDERED: LORazepam 0.5 MG TAB PO PRN (16:30)
[2023-01-02 16:42] LABS: Urine Bacteria NONE SEEN /hpf (None Seen); Urine Blood Negative /uL (Negative); Urine Hyaline Cast FEW /lpf (0 - 2); Urine WBC 13 /hpf (0 - 3)
[2023-01-02] MEDS ORDERED: TAMSULOSIN HYDROCHLORIDE 0.4 MG CAP PO SCH (18:00)
[2023-01-02] MEDS ORDERED: ATORVASTATIN 20 MG TAB PO SCH (22:00)
[2023-01-03 00:08] VITALS: BP 105/65
[2023-01-03] MEDS ORDERED: SERT25TA28 PO ×2 (01:34)
[2023-01-03 04:58] VITALS: BP 122/65
[2023-01-03 06:13] LABS: Basophils # (auto) 0 10 ^3/uL (0-0.2); Eosinophils # (auto) 0 10 ^3/uL (0-0.8); Hematocrit 23.5 % (41.0-53.0); Hemoglobin 7.5 g/dL (13.5-17.5); Lymphocytes # (auto) 0.5 10 ^3/uL (0.4-5.4); Lymphocytes % (auto) 7.1 % (10.0-50.0); Mean Corpuscular Hemoglobin 24.4 pg (28.0-32.0); Mean Corpuscular Hgb Conc. 31.9 g/dL (32.0-36.0); Mean Corpuscular Volume 76.6 fL (80.0-100.0); Monocytes # (auto) 0.2 10 ^3/uL (0-1.3); Monocytes % (auto) 2.6 % (0.0-12.0); Neutrophils # (auto) 6.5 10 ^3/uL (1.6-8.6); Neutrophils % (auto) 90.3 % (37.0-80.0); Red Blood Cells 3.07 10^6/uL (4.5-5.90); Red Cell Distribution Width 18.7 % (11.8-14.3); White Blood Cell 7.2 10^3/uL (4.4-10.8)
[2023-01-03 06:28] LABS: BUN/Creatinine Ratio 20.3 (10.0-20.0); Calcium 8.3 mg/dL (8.5-10.1); Potassium 4.3 mmol/L (3.5-5.1)
[2023-01-03 07:30] VITALS: BP 99/60
[2023-01-03 09:00] VITALS: BP 104/62
[2023-01-03] MEDS: methylPREDNISolone SOD SUCC 40 MG/ML VL IV SCH (09:28)
[2023-01-03] MEDS: CARVEDILOL 3.125 MG TAB PO SCH (09:29)
[2023-01-03] MEDS: CLOPIDOGREL BISULFATE 75 MG TAB PO SCH (09:30)
[2023-01-03] MEDS: PANTOPRAZOLE 40 MG TAB PO SCH (09:30)
[2023-01-03] MEDS: FUROSEMIDE 40 MG TAB PO SCH (09:30)
[2023-01-03] MEDS: ASPirin 81 mg TAB PO SCH (09:30)
[2023-01-03] MEDS: DIGOXIN 0.125 MG TAB PO SCH (09:34)
[2023-01-03] MEDS ORDERED: AZITHROMYCIN 250 MG TAB PO SCH (10:00)
[2023-01-03 12:40] VITALS: BP 110/52
[2023-01-03] MEDS ORDERED: AZIT500T PO ×2 (14:11)
[2023-01-03] MEDS ORDERED: METH4PAK PO ×2 (14:11)
[2023-01-03 15:45] VITALS: BP 110/52
== END 2023-01-03 16:30 | disposition home or self-care (01) | DRG 190 ==
LOC: EDBD 01:10 → ER 01:21 → TELE 04:01 → TELE-WESTW 22:55
PROVIDERS: ADMIT Nurse Practitioner; ATTEND Internal Medicine
DX: J44.1 Chronic obstructive pulmonary disease with (acute) exacerbation (principal); I21.A1 Myocardial infarction type 2; I13.0 Hypertensive heart and chronic kidney disease with heart failure and stage 1 through stage 4 chronic kidney disease, or unspecified chronic kidney disease; I50.22 Chronic systolic (congestive) heart failure; I25.10 Atherosclerotic heart disease of native coronary artery without angina pectoris; F41.9 Anxiety disorder, unspecified; N18.31 Chronic kidney disease, stage 3a; E78.5 Hyperlipidemia, unspecified; N40.0 Benign prostatic hyperplasia without lower urinary tract symptoms; K86.89 Other specified diseases of pancreas; Z95.1 Presence of aortocoronary bypass graft; D64.9 Anemia, unspecified; Z95.0 Presence of cardiac pacemaker; Z88.0 Allergy status to penicillin; Z95.5 Presence of coronary angioplasty implant and graft; Z87.891 Personal history of nicotine dependence
CPT/HCPCS: 36415; 71045; 80048; 80053; 81001; 84484; 85025; 87081; 87086; 93005; 94640; 96361; 96372; 96374; G0378

== ENCOUNTER 2023-01-04 14:45 | Inpatient (IN) | payer OTHER ==
[~2023-01-04] VITALS: Ht 154.9 cm; Wt 55.0 kg
[~2023-01-04 14:45] MED LIST changes: +AZIT500T PO; +METH4PAK PO; +SERT25TA28 PO
[2023-01-04 15:22] LABS: Basophils # (auto) 0 10 ^3/uL (0-0.2); Basophils % (auto) 0.2 % (0.0-2.0); Eosinophils # (auto) 0 10 ^3/uL (0-0.8); Eosinophils % (auto) 0.1 % (0.0-7.0); Hematocrit 25.4 % (41.0-53.0); Hemoglobin 8.1 g/dL (13.5-17.5); Lymphocytes # (auto) 0.8 10 ^3/uL (0.4-5.4); Lymphocytes % (auto) 7.6 % (10.0-50.0); Mean Corpuscular Hemoglobin 24.4 pg (28.0-32.0); Mean Corpuscular Hgb Conc. 31.9 g/dL (32.0-36.0); Mean Corpuscular Volume 76.5 fL (80.0-100.0); Monocytes % (auto) 8.7 % (0.0-12.0); Neutrophils # (auto) 9.1 10 ^3/uL (1.6-8.6); Neutrophils % (auto) 83.4 % (37.0-80.0); Nucleated Red Blood Cells % 0.1 %; Red Blood Cells 3.33 10^6/uL (4.5-5.90); Red Cell Distribution Width 18.7 % (11.8-14.3); White Blood Cell 10.9 10^3/uL (4.4-10.8)
[2023-01-04 15:42] LABS: Albumin 2.8 g/dL (3.4-5.0); Calcium 7.7 mg/dL (8.5-10.1); Potassium 3.4 mmol/L (3.5-5.1)
[2023-01-04 15:46] LABS: BUN/Creatinine Ratio 19.5 (10.0-20.0); Bilirubin, Total 0.3 mg/dL (0.2-1.0); Total Protein 5.4 g/dL (6.4-8.2)
[2023-01-04] MEDS ORDERED: DOCUSATE SOD 100 MG CAP PO PRN (22:15)
[2023-01-04] MEDS ORDERED: AZITHROMYCIN 500MG/ 250ML 250 ML IV ONE (22:15)
[2023-01-04] MEDS ORDERED: HYDROcodone-ACET 5/325MG TAB PO PRN (22:15)
[2023-01-04] MEDS ORDERED: ASPirin 81 mg TAB PO ONE (22:15)
[2023-01-04] MEDS ORDERED: ONDANSETRON HCL 4 MG/2 ML VIAL IV PRN (22:15)
[2023-01-04] MEDS ORDERED: ACETAMINOPHEN 325 MG TAB PO PRN (22:15)
[2023-01-04] MEDS ORDERED: SODIUM CHLORIDE 0.9% 1,000 ML IV SCH (22:15)
[2023-01-04] MEDS ORDERED: NITROGLYCERIN 0.4 MG SL TAB SL PRN (23:15)
[2023-01-04] MEDS ORDERED: MORPHINE SULFATE INJ 2 MG/ml SYRG IV PRN (23:15)
[2023-01-05 03:07] LABS: Urine Bacteria NONE SEEN /hpf (None Seen); Urine Blood Negative /uL (Negative); Urine Hyaline Cast MANY /lpf (0 - 2); Urine Mucus FEW (None Seen); Urine WBC 4 /hpf (0 - 3)
[2023-01-05 06:09] LABS: Basophils # (auto) 0 10 ^3/uL (0-0.2); Eosinophils # (auto) 0 10 ^3/uL (0-0.8); Hemoglobin 8.1 g/dL (13.5-17.5)
[2023-01-05 06:11] LABS: Basophils % (auto) 0.1 % (0.0-2.0); Hematocrit 25.3 % (41.0-53.0); Lymphocytes # (auto) 0.7 10 ^3/uL (0.4-5.4); Lymphocytes % (auto) 8.9 % (10.0-50.0); Mean Corpuscular Hemoglobin 24.9 pg (28.0-32.0); Mean Corpuscular Hgb Conc. 32.1 g/dL (32.0-36.0); Mean Corpuscular Volume 77.4 fL (80.0-100.0); Monocytes # (auto) 0.2 10 ^3/uL (0-1.3); Monocytes % (auto) 3.2 % (0.0-12.0); Neutrophils # (auto) 6.8 10 ^3/uL (1.6-8.6); Neutrophils % (auto) 87.8 % (37.0-80.0); Nucleated Red Blood Cells % 0.2 %; Red Blood Cells 3.27 10^6/uL (4.5-5.90); Red Cell Distribution Width 18.3 % (11.8-14.3); White Blood Cell 7.7 10^3/uL (4.4-10.8)
[2023-01-05 06:31] LABS: Potassium 3.7 mmol/L (3.5-5.1)
[2023-01-05 06:51] LABS: BUN/Creatinine Ratio 18.7 (10.0-20.0); Bilirubin, Total 0.3 mg/dL (0.2-1.0); Calcium 8.2 mg/dL (8.5-10.1); Total Protein 5.9 g/dL (6.4-8.2)
[2023-01-05] MEDS: FAMOTIDINE (10MG/ML) 2ML VL IV SCH ×2 (10:48→21:35)
[2023-01-05] MEDS: ASPirin 81 mg TAB PO SCH (10:49)
[2023-01-05] MEDS: CARVEDILOL 3.125 MG TAB PO SCH ×2 (10:49→21:36)
[2023-01-05] MEDS ORDERED: levoFLOXacin 500MG 100 ML IV ONE (13:15)
[2023-01-05] MEDS ORDERED: CLOPIDOGREL BISULFATE 75 MG TAB PO ONE (13:15)
[2023-01-05] MEDS ORDERED: FUROSEMIDE 40 MG/4 ML VIAL IV ONE (13:30)
[2023-01-05] MEDS ORDERED: ALBUTEROL SULF 2.5 MG/0.5ML(0.5%) NEB SOLN NEB PRN (13:30)
[2023-01-05] MEDS ORDERED: IPRATROPIUM BROM 0.5 MG/2.5ML INH SOL NEB PRN (13:30)
[2023-01-05] MEDS ORDERED: methylPREDNISolone SOD SUCC 125 MG/2 ML VL IV ONE (13:30)
[2023-01-05] MEDS: TAMSULOSIN HYDROCHLORIDE 0.4 MG CAP PO SCH (18:50)
[2023-01-05 19:51] VITALS: BP 106/51
[2023-01-05] MEDS ORDERED: AZITHROMYCIN 500MG/ 250ML 250 ML IV SCH (21:00)
[2023-01-05] MEDS: methylPREDNISolone SOD SUCC 40 MG/ML VL IV SCH (21:35)
[2023-01-05] MEDS: ATORVASTATIN 20 MG TAB PO SCH (21:36)
[2023-01-06] MEDS ORDERED: TEMAZEPAM 15 MG CAP PO ONE (01:15)
[2023-01-06 07:50] LABS: Albumin 2.9 g/dL (3.4-5.0); Calcium 8.3 mg/dL (8.5-10.1); Magnesium 2.1 mg/dL (1.6-2.6); Potassium 3.9 mmol/L (3.5-5.1)
[2023-01-06 07:55] LABS: BUN/Creatinine Ratio 17.9 (10.0-20.0); Bilirubin, Total 0.4 mg/dL (0.2-1.0); Total Protein 5.8 g/dL (6.4-8.2)
[2023-01-06 08:42] LABS: Basophils # (auto) 0 10 ^3/uL (0-0.2); Eosinophils # (auto) 0 10 ^3/uL (0-0.8); Hemoglobin 7.9 g/dL (13.5-17.5); Monocytes # (auto) 0.2 10 ^3/uL (0-1.3); Monocytes % (auto) 3.9 % (0.0-12.0); Nucleated Red Blood Cells % 0.2 %; White Blood Cell 4.5 10^3/uL (4.4-10.8)
[2023-01-06 08:44] LABS: Lymphocytes # (auto) 0.7 10 ^3/uL (0.4-5.4); Lymphocytes % (auto) 14.9 % (10.0-50.0); Mean Corpuscular Hemoglobin 24.2 pg (28.0-32.0); Mean Corpuscular Hgb Conc. 31.8 g/dL (32.0-36.0); Mean Corpuscular Volume 76.4 fL (80.0-100.0); Neutrophils # (auto) 3.6 10 ^3/uL (1.6-8.6); Neutrophils % (auto) 81.2 % (37.0-80.0); Red Blood Cells 3.27 10^6/uL (4.5-5.90); Red Cell Distribution Width 18.1 % (11.8-14.3)
[2023-01-06] MEDS ORDERED: FUROSEMIDE 40 MG/4 ML VIAL IV SCH (10:00)
[2023-01-06] MEDS: CARVEDILOL 3.125 MG TAB PO SCH ×2 (10:00→22:24)
[2023-01-06] MEDS: methylPREDNISolone SOD SUCC 40 MG/ML VL IV SCH ×2 (10:31→22:19)
[2023-01-06] MEDS: ASPirin 81 mg TAB PO SCH (10:31)
[2023-01-06] MEDS: FAMOTIDINE (10MG/ML) 2ML VL IV SCH ×2 (10:31→22:19)
[2023-01-06] MEDS: levoFLOXacin 500MG 100 ML IV SCH (10:32)
[2023-01-06 12:00] VITALS: BP 133/65
[2023-01-06 16:00] VITALS: BP 132/54
[2023-01-06] MEDS: TAMSULOSIN HYDROCHLORIDE 0.4 MG CAP PO SCH (18:15)
[2023-01-06 18:16] VITALS: BP 124/59
[2023-01-06 18:24] VITALS: BP 133/65
[2023-01-06 22:00] VITALS: BP 111/45
[2023-01-06] MEDS: ATORVASTATIN 20 MG TAB PO SCH (22:19)
[2023-01-07 05:00] VITALS: BP 109/69
[2023-01-07 08:00] VITALS: BP 133/67
[2023-01-07] MEDS: levoFLOXacin 500MG 100 ML IV SCH (09:23)
[2023-01-07] MEDS: methylPREDNISolone SOD SUCC 40 MG/ML VL IV SCH (09:23)
[2023-01-07] MEDS: FAMOTIDINE (10MG/ML) 2ML VL IV SCH (09:23)
[2023-01-07] MEDS: ASPirin 81 mg TAB PO SCH (09:23)
[2023-01-07] MEDS: CARVEDILOL 3.125 MG TAB PO SCH (09:24)
[2023-01-07] MEDS ORDERED: LORazepam 0.5 MG TAB PO ONE (09:45)
[2023-01-07] MEDS ORDERED: CLOPIDOGREL BISULFATE 75 MG TAB PO ONE (09:45)
[2023-01-07] MEDS ORDERED: CLOP75TA28 PO ×2 (10:30)
[2023-01-07] MEDS ORDERED: FURO1TAB33 PO ×2 (10:30)
[2023-01-07] MEDS ORDERED: CAR3125T OR ×2 (10:30)
[2023-01-07] MEDS ORDERED: ATOR20TA PO ×2 (10:30)
[2023-01-07] MEDS ORDERED: LORA2TAB89 PO ×2 (10:30)
[2023-01-07] MEDS ORDERED: LISI10TA34 PO ×2 (10:30)
[2023-01-07] MEDS ORDERED: ASPI1TAB20 PO ×2 (10:30)
[2023-01-07 12:00] VITALS: BP 101/60
== END 2023-01-07 16:15 | disposition home or self-care (01) | DRG 193 ==
LOC: EDUNIT# 14:45 → EDBD 14:45 → ER 14:45 → TELE 23:03 → TELE-CENTR 01-06 12:38
PROVIDERS: ADMIT Nurse Practitioner Family; ATTEND Internal Medicine Geriatric Medicine
DX: J18.9 Pneumonia, unspecified organism (principal); J96.20 Acute and chronic respiratory failure, unspecified whether with hypoxia or hypercapnia; E44.1 Mild protein-calorie malnutrition; J44.0 Chronic obstructive pulmonary disease with (acute) lower respiratory infection; J90 Pleural effusion, not elsewhere classified; I13.0 Hypertensive heart and chronic kidney disease with heart failure and stage 1 through stage 4 chronic kidney disease, or unspecified chronic kidney disease; I50.22 Chronic systolic (congestive) heart failure; N17.9 Acute kidney failure, unspecified; D50.9 Iron deficiency anemia, unspecified; E78.5 Hyperlipidemia, unspecified; N40.0 Benign prostatic hyperplasia without lower urinary tract symptoms; D72.829 Elevated white blood cell count, unspecified; I25.10 Atherosclerotic heart disease of native coronary artery without angina pectoris; F41.9 Anxiety disorder, unspecified; N18.30 Chronic kidney disease, stage 3 unspecified; K86.89 Other specified diseases of pancreas; I25.2 Old myocardial infarction; Z95.1 Presence of aortocoronary bypass graft; Z95.0 Presence of cardiac pacemaker; Z88.0 Allergy status to penicillin; Z79.02 Long term (current) use of antithrombotics/antiplatelets; Z79.82 Long term (current) use of aspirin; Z79.899 Other long term (current) drug therapy; Z68.21 Body mass index [BMI] 21.0-21.9, adult
CPT/HCPCS: 36415; 71045; 80053; 80061; 81001; 82270; 83735; 83880; 84484; 85025; 86850; 86900; 86901; 87081; 93005; 93306; 96365; G0378; J1956; J3490

== ENCOUNTER 2023-01-22 20:01 | Emergency (ER) | payer OTHER ==
[~2023-01-22] VITALS: Ht 170.2 cm; Wt 51.3 kg
[~2023-01-22 20:01] MED LIST changes: +ASPI1TAB20 PO; +ATOR20TA PO; +CAR3125T OR; -DOXY-346 PO; -FURO1TAB31 PO; +FURO1TAB33 PO; -HYDR-3682 PO; +LORA2TAB89 PO; -METO25TA5 PO; -PRED20TA2 PO
[2023-01-22 20:41] LABS: Basophils # (auto) 0.1 10 ^3/uL (0-0.2); Basophils % (auto) 0.9 % (0.0-2.0); Eosinophils # (auto) 0.2 10 ^3/uL (0-0.8); Eosinophils % (auto) 3.1 % (0.0-7.0); Hematocrit 32.1 % (41.0-53.0); Hemoglobin 10.2 g/dL (13.5-17.5); Lymphocytes # (auto) 1.7 10 ^3/uL (0.4-5.4); Lymphocytes % (auto) 22.7 % (10.0-50.0); Mean Corpuscular Hemoglobin 25.1 pg (28.0-32.0); Mean Corpuscular Hgb Conc. 31.7 g/dL (32.0-36.0); Mean Corpuscular Volume 79.3 fL (80.0-100.0); Monocytes # (auto) 0.8 10 ^3/uL (0-1.3); Monocytes % (auto) 11.1 % (0.0-12.0); Neutrophils # (auto) 4.7 10 ^3/uL (1.6-8.6); Neutrophils % (auto) 62.2 % (37.0-80.0); Nucleated Red Blood Cells % 0.1 %; Red Blood Cells 4.05 10^6/uL (4.5-5.90); Red Cell Distribution Width 18.5 % (11.8-14.3); White Blood Cell 7.6 10^3/uL (4.4-10.8)
[2023-01-22 20:49] LABS: INR 1.04 (0.9-1.15)
[2023-01-22 20:50] LABS: Albumin 3.2 g/dL (3.4-5.0); Calcium 8.1 mg/dL (8.5-10.1); Magnesium 2.2 mg/dL (1.6-2.6); Potassium 4.2 mmol/L (3.5-5.1)
[2023-01-22 20:56] LABS: BUN/Creatinine Ratio 15.1 (10.0-20.0); Bilirubin, Total 0.2 mg/dL (0.2-1.0); Total Protein 6.4 g/dL (6.4-8.2)
[2023-01-23] MEDS ORDERED: DexAMETHasone SOD PHOS 10MG/1ML VIAL INJ IV ONE (00:30)
[2023-01-23] MEDS ORDERED: AZIT-43 PO (06:32)
[2023-01-23] MEDS ORDERED: PRED20TA2 PO (06:32)
[2023-01-23 06:53] VITALS: BP 106/48
== END 2023-01-23 06:53 | disposition home or self-care (01) ==
LOC: ER 20:01
DX: J44.1 Chronic obstructive pulmonary disease with (acute) exacerbation (principal); E78.5 Hyperlipidemia, unspecified; I10 Essential (primary) hypertension; Z87.891 Personal history of nicotine dependence; Z88.0 Allergy status to penicillin; Z88.8 Allergy status to other drugs, medicaments and biological substances
CPT/HCPCS: 36415; 71045; 80053; 83735; 83880; 84484; 85025; 85610; 85730; 93005; 96374; 99285; J1100

== ENCOUNTER 2023-02-04 08:30 | Emergency (ER) | payer OTHER ==
[~2023-02-04] VITALS: Ht 170.2 cm; Wt 63.7 kg
[~2023-02-04 08:30] MED LIST changes: +AZIT-43 PO; +PRED20TA2 PO
[2023-02-04 09:07] LABS: Albumin 2.7 g/dL (3.4-5.0); Calcium 8.1 mg/dL (8.5-10.1); Potassium 3.8 mmol/L (3.5-5.1)
[2023-02-04 09:08] LABS: Basophils # (auto) 0 10 ^3/uL (0-0.2); Basophils % (auto) 0.4 % (0.0-2.0); Eosinophils # (auto) 0.3 10 ^3/uL (0-0.8); Hemoglobin 9.3 g/dL (13.5-17.5); Neutrophils # (auto) 6.5 10 ^3/uL (1.6-8.6); White Blood Cell 10.1 10^3/uL (4.4-10.8)
[2023-02-04 09:09] LABS: Eosinophils % (auto) 3.3 % (0.0-7.0); Hematocrit 30.4 % (41.0-53.0); Lymphocytes % (auto) 19.8 % (10.0-50.0); Mean Corpuscular Hemoglobin 24.4 pg (28.0-32.0); Mean Corpuscular Hgb Conc. 30.6 g/dL (32.0-36.0); Mean Corpuscular Volume 79.7 fL (80.0-100.0); Monocytes # (auto) 1.2 10 ^3/uL (0-1.3); Neutrophils % (auto) 64.5 % (37.0-80.0); Nucleated Red Blood Cells % 0.1 %; Red Blood Cells 3.81 10^6/uL (4.5-5.90); Red Cell Distribution Width 19.4 % (11.8-14.3)
[2023-02-04 09:11] LABS: BUN/Creatinine Ratio 19.3 (10.0-20.0); Bilirubin, Total 0.2 mg/dL (0.2-1.0); Total Protein 5.2 g/dL (6.4-8.2)
[2023-02-04 11:16] LABS: Urine Bacteria NONE SEEN /hpf (None Seen); Urine Blood Negative /uL (Negative); Urine Specific Gravity 1.033 (1.001-1.035); Urine WBC 39 /hpf (0 - 3)
[2023-02-04 11:43] VITALS: BP 112/53
== END 2023-02-04 11:47 | disposition home or self-care (01) ==
LOC: EDBD 08:30 → ER 08:30
DX: S76.912A Strain of unspecified muscles, fascia and tendons at thigh level, left thigh, initial encounter (principal); K40.90 Unilateral inguinal hernia, without obstruction or gangrene, not specified as recurrent; J44.9 Chronic obstructive pulmonary disease, unspecified; E78.5 Hyperlipidemia, unspecified; I10 Essential (primary) hypertension; R06.02 Shortness of breath; Z87.891 Personal history of nicotine dependence; Z88.0 Allergy status to penicillin; X58.XXXA Exposure to other specified factors, initial encounter; Y93.89 Activity, other specified; Y92.89 Other specified places as the place of occurrence of the external cause; Y99.8 Other external cause status
CPT/HCPCS: 36415; 71045; 76870; 80053; 81001; 83880; 84484; 85025; 93005

== ENCOUNTER 2023-08-28 10:26 | Emergency (ER) | payer OTHER ==
[~2023-08-28] VITALS: Ht 170.2 cm; Wt 50.0 kg
[2023-08-28] MEDS ORDERED: methylPREDNISolone SOD SUCC 125 MG/2 ML VL IV ONE (11:00)
[2023-08-28] MEDS ORDERED: ALBUTEROL SULF 2.5 MG/0.5ML(0.5%) NEB SOLN NEB ONE (11:00)
[2023-08-28] MEDS ORDERED: IPRATROPIUM BROM 0.5 MG/2.5ML INH SOL NEB ONE (11:00)
[2023-08-28 11:14] LABS: Basophils # (auto) 0 10 ^3/uL (0-0.2); Basophils % (auto) 0.1 % (0.0-2.0); Eosinophils # (auto) 0 10 ^3/uL (0-0.8); Eosinophils % (auto) 0.1 % (0.0-7.0); Hemoglobin 7.9 g/dL (13.5-17.5); Lymphocytes # (auto) 0.2 10 ^3/uL (0.4-5.4); Monocytes # (auto) 0.1 10 ^3/uL (0-1.3); Neutrophils # (auto) 3.3 10 ^3/uL (1.6-8.6); Red Cell Distribution Width 18.6 % (11.8-14.3); White Blood Cell 3.6 10^3/uL (4.4-10.8)
[2023-08-28 11:16] LABS: Hematocrit 25.3 % (41.0-53.0); Lymphocytes % (auto) 5.5 % (10.0-50.0); Mean Corpuscular Hemoglobin 27.4 pg (28.0-32.0); Mean Corpuscular Hgb Conc. 31.2 g/dL (32.0-36.0); Monocytes % (auto) 2.7 % (0.0-12.0); Neutrophils % (auto) 91.6 % (37.0-80.0); Nucleated Red Blood Cells % 0.1 %; Red Blood Cells 2.87 10^6/uL (4.5-5.90)
[2023-08-28 11:38] LABS: Alanine Aminotransferase 35 U/L (7-40); Albumin 3.3 g/dL (3.2-4.8); Alkaline Phosphatase 107 U/L (46-116); Anion Gap 10 (5-15); Aspartate Aminotransferase 33 U/L (13-40); BUN/Creatinine Ratio 9.5 (10.0-20.0); Bilirubin, Total 0.4 mg/dL (0.2-1.0); Blood Urea Nitrogen 11 mg/dL (9-23); Calcium 8.3 mg/dL (8.5-10.1); Carbon Dioxide 24 mmol/L (20-30); Chloride 108 mmol/L (98-107); Glucose 121 mg/dL (74-106); Potassium 3.1 mmol/L (3.5-5.1); Sodium 142 mmol/L (136-145); Total Protein 5.5 g/dL (5.7-8.2)
[2023-08-28] MEDS ORDERED: POTASSIUM EFFERVESENT TAB 25 MEQ PO ONE (12:15)
[2023-08-28 14:48] VITALS: BP 124/86; PULSE 89; RESP 18; TEMP 97.7; O2SAT 96
== END 2023-08-28 14:32 | disposition home or self-care (01) ==
LOC: ER 10:26 → EDBD 10:26 → ER 14:32
DX: J44.1 Chronic obstructive pulmonary disease with (acute) exacerbation (principal); R07.89 Other chest pain; I10 Essential (primary) hypertension; I25.2 Old myocardial infarction; I25.10 Atherosclerotic heart disease of native coronary artery without angina pectoris; E78.5 Hyperlipidemia, unspecified; Z95.1 Presence of aortocoronary bypass graft; Z95.0 Presence of cardiac pacemaker; Z90.89 Acquired absence of other organs; Z87.891 Personal history of nicotine dependence
CPT/HCPCS: 36415; 71045; 80053; 83880; 84484; 85025; 93005; 94640; 96374; 99285; J2930; J7644